=== PATIENT | female | born 1945 | race Caucasian/White ===

== ENCOUNTER 2022-10-07 09:49 | Inpatient (IN) | payer MEDICARE, SELFPAY ==
[2022-10-07] VITALS (9 sets, daily range): BP systolic 101–131; BP diastolic 46–80; PULSE 66–83; RESP 11–16; TEMP 36.6–36.9; O2SAT 97–100; BMI 46.2
--- NOTE | 2022-10-07 | ECG_ITS ---
Test Reason : SYNCOPE Blood Pressure : / mmHG Vent. Rate : 064 BPM Atrial Rate : 064 BPM P-R Int : 158 ms QRS Dur : 092 ms QT Int : 438 ms P-R-T Axes : 088 023 051 degrees QTc Int : 451 ms Normal sinus rhythm Normal ECG No previous ECGs available Referred By: Eleonora Grubbs Electronically Signed By:MIHIR MCDONALD MD
--- NOTE | ~2022-10-07 | CT_ITS ---
EXAMINATION: CT HEAD WITHOUT CONTRAST CLINICAL INFORMATION: CVA. COMPARISON: None. TECHNIQUE: Contiguous axial imaging was performed from the skull base to vertex without intravenous administration of contrast. This CT examination was performed using dose optimization techniques as appropriate, variously including the following: *Automated exposure control *Adjustment of mA and/or kV according to patient size (this includes techniques or standardized protocols for targeted exams where dose is matched to indication/reason for exam; i.e. extremities or head) *Use of iterative reconstruction technique DLP: 697 mGy-cm FINDINGS: Age indeterminate lacunar infarcts in the bilateral basal ganglia. There is no evidence of acute intracranial hemorrhage or edematous territorial infarction. A few foci of hypoattenuation in the periventricular and deep white matter are consistent with mild microangiopathy. Hernandez-white matter differentiation is preserved. Proportional prominence of the ventricles and sulcal spaces. No evidence for obstructive hydrocephalus. No abnormal mass effect or midline shift. No extra-axial fluid collections. No acute soft tissue or osseous abnormalities. The mastoid air cells and paranasal sinuses are clear. Bilateral lens extraction. CT/CT head/brain wo IV con IMPRESSION: 1. Age indeterminate lacunar infarcts in the bilateral basal ganglia. If indicated, correlation with an MR of the brain could be obtained for further characterization. 2. No evidence of acute intracranial hemorrhage or edematous territorial infarction.
--- NOTE | ~2022-10-07 | US_ITS ---
EXAMINATION: US VENOUS ULTRASOUND WITH DOPPLER LOWER EXTREMITY, BILATERAL CLINICAL INFORMATION: Bilateral leg pain. COMPARISON: None available. TECHNIQUE: Ultrasound of the deep veins is performed from the hip to the calf with compression sonography and color and pulse Doppler assessment. Spectral analysis with color-flow imaging is performed. FINDINGS: Limited exam as patient unable to mobilize either leg and has adhesive bandage on the right leg. RIGHT: There is normal venous compression and respiratory variation and augmented flow. The visualized common femoral vein, superficial femoral vein, profunda femoral vein, popliteal vein, shows no evidence of deep venous thrombosis. Right posterior tibial and peroneal distal veins are patent. The proximal calf cannot be evaluated due to bandage. There is no significant popliteal fossa cyst. LEFT: There is normal venous compression and respiratory variation and augmented flow. The visualized common femoral vein, superficial femoral vein, profunda femoral vein, popliteal vein, and the trifurcation region shows no evidence of deep venous thrombosis. The left calf veins are not visualized well. There is no significant popliteal fossa cyst. If the patient's symptoms persist, followup ultrasound in 5 days 7 days might be of value to exclude proximal propagation from a non-visualized calf vein. US/US venous duplex LE BI IMPRESSION: No DVT demonstrated in bilateral lower extremities of bowel the knee joint. Limited visualization of proximal right calf. The distal right peroneal and posterior tibial veins are patent.
--- NOTE | ~2022-10-07 | US_ITS ---
EXAMINATION: US VENOUS ULTRASOUND WITH DOPPLER LOWER EXTREMITY, RIGHT CLINICAL INFORMATION: Edema. COMPARISON: None available. TECHNIQUE: Ultrasound of the deep veins is performed from the hip to the calf with compression sonography and color and pulse Doppler assessment. Spectral analysis with color-flow imaging is performed. FINDINGS: There is normal venous compression and respiratory variation and augmented flow. The visualized common femoral vein, superficial femoral vein, profunda femoral vein, popliteal vein, and the trifurcation region shows no evidence of deep venous thrombosis. There is no significant popliteal fossa cyst. If the patient's symptoms persist, followup ultrasound in 5 days 7 days might be of value to exclude proximal propagation from a non-visualized calf vein. US/US venous duplex LE RT IMPRESSION: No DVT demonstrated in the right lower extremity.
--- NOTE | 2022-10-07 10:04 | ED_ITS ---
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 She states she woke up at 630am in her usual state of health. She ate breakfast and took her BP medications including Losartan and Coreg. She started feeling unwell and was going to go lay down when she started feeling lightheaded and weak. took her BP on their automatic cuff at home and it was 78/54. EMS was called and patient was found to be pale, diaphoretic with weak pulses. She had a witnessed brief syncopal episode while sitting. EMS brought her to the ER for further evaluation. Patient reports issues with this in the past. She has had intermittently low BP. Her usual BP is 130/70s. She states after she was discharged from [facility] in August she states she had a similar episode and needed to go back to [facility]. She denies any vomiting or diarrhea. She has had no chest pain or SOB. She reports some nausea but overall is feeling better than when she was at home. MD Complaint: generalized weakness Onset (ago): hour(s) (2) Duration: improved Location: generalized Migration: none Severity: similar to previous episodes Relieving factors: none Exacerbating factors: none Context: recent illness and history of similar Associated symptoms: loss of appetite and nausea/vomiting Related Data Home Medications Medication Instructions Recorded Confirmed acetaminophen 325 mg tablet 650 mg PO Q4H PRN Pain 10/07/22 10/07/22 (Tylenol) albuterol sulfate 90 mcg/actuation 2 puff inhalation Q6H PRN Wheezing 10/07/22 10/07/22 aerosol inhaler atorvastatin 40 mg tablet 40 mg PO BEDTIME 10/07/22 10/07/22 budesonide 3 mg 3 mg PO DAILY 10/07/22 10/07/22 capsule,delayed,extended release carvedilol 12.5 mg tablet 12.5 mg PO BID 10/07/22 10/07/22 cholecalciferol (vitamin D3) 25 25 mcg PO DAILY 10/07/22 10/07/22 mcg (1,000 unit) tablet citalopram 10 mg tablet 10 mg PO DAILY 10/07/22 10/07/22 dicyclomine 10 mg capsule 10 mg PO BID PRN Spasms 10/07/22 10/07/22 fluticasone propionate 50 1 spray intranasal DAILY 10/07/22 10/07/22 mcg/actuation nasal spray,suspension furosemide 20 mg tablet 20 mg PO DAILY 10/07/22 10/07/22 gabapentin 300 mg capsule 300 mg PO TID 10/07/22 10/07/22 levothyroxine 112 mcg tablet 112 mcg PO DAILY@0600 10/07/22 10/07/22 losartan 50 mg tablet 50 mg PO DAILY 10/07/22 10/07/22 multivitamin 1 tab PO DAILY 10/07/22 10/07/22 omeprazole 20 mg capsule,delayed 20 mg PO BID@0630,1630 10/07/22 10/07/22 release zaleplon 5 mg capsule 5 mg PO BEDTIME PRN insomnia 10/07/22 10/07/22 Allergies Allergy/AdvReac Type Severity Reaction Status Date / Time acetaminophen [Vicodin] Allergy Unknown vomiting; Verified 10/25/18 00:00 dizziness hydrocodone [Vicodin] Allergy Unknown vomiting; Verified 10/25/18 00:00 dizziness morphine Allergy Unknown Confusion Verified 10/25/18 00:00 oxycodone [Percocet] Allergy Unknown Vomiting, Verified 10/25/18 00:00 fainting penicillin V Allergy Unknown Rash Verified 10/25/18 00:00 tetracycline Allergy Unknown Stomach Verified 10/25/18 00:00 upset tramadol [Ultram] Allergy Unknown Violent N Verified 10/25/18 00:00 & V all codeine Allergy Unknown Uncoded 10/25/18 00:00 Codeine Sulfate Allergy Unknown Vomiting; Uncoded 10/25/18 00:00 fainting Review of Systems Review of Systems: Yes all other systems are reviewed and are negative PMFSH Social History Social History Alcohol intake: current Alcohol intake frequency: a few times a week Alcohol type: wine Smoked in Last 30 Days: No Use of substances other than those prescribed or required for medical reasons: No Advance Directives: Yes Advance Directives Information Provided: Yes Advance Directives on File: No Physical Exam Vital Signs: Vital Signs: Last Vital Signs Temp 98.2 F 10/07/22 14:53 Pulse 83 10/07/22 14:53 Resp 14 10/07/22 14:53 BP 115/54 L 10/07/22 14:53 Pulse Ox 98 10/07/22 14:53 O2 Del Method Nasal Cannula 10/07/22 14:53 O2 Flow Rate 2 10/07/22 14:53 Oxygen Flow Rate 2 10/07/22 10:00 BMI result Body Mass Index 46.2 Appearance: Alert. Oriented X3. No acute distress. Eyes: Pupils equal, round and reactive to light. ENT: Pharynx normal. Neck: Normal inspection. Neck supple. CVS: Normal heart rate and rhythm. Pulses normal. Respiratory: No respiratory distress. Breath sounds normal. Abdomen: Soft and nontender. +BS x4 Skin: Skin warm and dry. Normal skin color. Normal skin turgor. No rashes. Extremities: Right lower leg with a wound vac in place on the anterior crowe. Moderate erythema of the right lower leg. No calf tenderness. Neuro: Oriented X 3. No motor deficit. No sensory deficit. 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 EKG, Labs, UA, viral swabs ordered. Patient was re-evaluated. Hypomagnesium at 1.0, patient medicated with magnesium 2g. CBC significant for normocytic anemia with an H&H 8.8/27.9; TSH elevated at 9.34 but t4 WNL. UA normal, patient is not orthostatic. EKG with no ST elevation or depression. Patient's BP improved after 1L of fluids. We discussed the importance of admission for observation, patient reports that she is feeling well but given her age and syncopal episode with unknown etiology, will plan to admit for observation. Differential Diagnosis Differential Diagnoses: The differential diagnosis associated with the pre sentation includes orthostatic hypotension, electrolyte abnormality, dehydration, UTI, viral syndrome Admission/Observation Consideration of admission/observation: Escalation of care including admission/observation considered Lab Data MDM Lab Attestation statement: I reviewed the patient's lab results. normocytic anemia with a H&H 8.8/27.9; TSH elevated at 9.34 but t4 WNL. 10/07/22 10:18 10/07/22 10:18 Labs: Lab Results 10/07/22 10/07/22 10/07/22 Range/Units 10:18 10:18 10:18 WBC 10.2 (4.8-10.8) X10*3/uL RBC 2.93 L (4.20-5.50) X10*6/uL Hgb 8.8 L (12.0-16.0) g/dl Hct 27.9 L (37.0-47.0) % MCV 95.2 (80.0-98.0) fL MCH 30.0 (27.0-33.0) pg MCHC 31.5 (31.0-35.0) g/dl RDW 14.3 (11.0-16.0) % Plt Count 309 (160-400) X10*3/uL MPV 10.1 (9.4-12.3) fL Immature Gran % (Auto) 0.6 H (0.0-0.4) % Neut % (Auto) 77.4 H (45-73) % Lymph % (Auto) 8.9 L (20-40) % [place] % (Auto) 9.8 (2-11) % Eos % (Auto) 2.6 (0-4) % Baso % (Auto) 0.7 (0-2) % Lymph # (Auto) 0.9 L (1.2-4.9) X10*3/uL [place] # (Auto) 1.0 (0.1-1.2) X10*3/uL Eos # (Auto) 0.3 (0.0-0.4) X10*3/uL Baso # (Auto) 0.1 (0.0-0.2) X10*3/uL Abs Immat Gran (auto) 0.06 H (0.00-0.03) X10*3/uL Absolute Neuts (auto) 7.9 (2.0-8.3) x10*3/uL Absolute Nucleated RBC 0.000 (0.0-0.012) X10*3/uL Nucleated RBC % (auto) 0.0 (0.0-0.2) /100WBC Sodium 137 (135-145) mmol/L Potassium 3.7 (3.3-5.1) mmol/L Chloride 98 (96-108) mmol/L Carbon Dioxide 30 H (22-29) mmol/L Anion Gap 13 (12-20) BUN 12 (9-16) mg/dL Creatinine 0.95 (0.5-1.4) mg/dL Estim Creat Clear Calc 56.7 Estimated GFR 57 Random Glucose 124 H (60-115) mg/dL Calcium 8.8 (8.4-10.2) mg/dL Magnesium 1.0 L* (1.6-2.6) mg/dL Total Bilirubin 0.9 (0.0-1.0) mg/dL Direct Bilirubin 0.3 (0.0-0.5) mg/dL AST 12 (5-31) U/L ALT 11 (0-31) U/L Alkaline Phosphatase 45 (39-117) U/L Troponin I High Sens 8.2 (<3.5-17.0) ng/L B-Natriuretic Peptide (<100) pg/mL Total Protein 5.3 L (6.5-8.0) g/dL Albumin 3.1 L (3.5-5.0) g/dL TSH (0.32-4.0) uIU/mL Free T4 (0.71-1.85) ng/dL Urine Color Urine Appearance Urine pH (5.0-9.0) Ur Specific [place] (1.005-1.025) Urine Protein (Neg-Trace) mg/dL Urine Glucose (UA) (Negative) mg/dL Urine Ketones (Negative) mg/dL Urine Blood (Negative) Urine Nitrite (Negative) Ur Leukocyte Esterase (Negative) Stool Occult Blood (NEGATIVE) COVID-19 (MANISHA) (Negative) COVID-19 Clin Com 10/07/22 10/07/22 10/07/22 Range/Units 10:18 10:18 10:18 WBC (4.8-10.8) X10*3/uL RBC (4.20-5.50) X10*6/uL Hgb (12.0-16.0) g/dl Hct (37.0-47.0) % MCV (80.0-98.0) fL MCH (27.0-33.0) pg MCHC (31.0-35.0) g/dl RDW (11.0-16.0) % Plt Count (160-400) X10*3/uL MPV (9.4-12.3) fL Immature Gran % (Auto) (0.0-0.4) % Neut % (Auto) (45-73) % Lymph % (Auto) (20-40) % [place] % (Auto) (2-11) % Eos % (Auto) (0-4) % Baso % (Auto) (0-2) % Lymph # (Auto) (1.2-4.9) X10*3/uL [place] # (Auto) (0.1-1.2) X10*3/uL Eos # (Auto) (0.0-0.4) X10*3/uL Baso # (Auto) (0.0-0.2) X10*3/uL Abs Immat Gran (auto) (0.00-0.03) X10*3/uL Absolute Neuts (auto) (2.0-8.3) x10*3/uL Absolute Nucleated RBC (0.0-0.012) X10*3/uL Nucleated RBC % (auto) (0.0-0.2) /100WBC Sodium (135-145) mmol/L Potassium (3.3-5.1) mmol/L Chloride (96-108) mmol/L Carbon Dioxide (22-29) mmol/L Anion Gap (12-20) BUN (9-16) mg/dL Creatinine (0.5-1.4) mg/dL Estim Creat Clear Calc Estimated GFR Random Glucose (60-115) mg/dL Calcium (8.4-10.2) mg/dL Magnesium (1.6-2.6) mg/dL Total Bilirubin (0.0-1.0) mg/dL Direct Bilirubin (0.0-0.5) mg/dL AST (5-31) U/L ALT (0-31) U/L Alkaline Phosphatase (39-117) U/L Troponin I High Sens (<3.5-17.0) ng/L B-Natriuretic Peptide 388 H (<100) pg/mL Total Protein (6.5-8.0) g/dL Albumin (3.5-5.0) g/dL TSH 9.13 H (0.32-4.0) uIU/mL Free T4 1.21 (0.71-1.85) ng/dL Urine Color Urine Appearance Urine pH (5.0-9.0) Ur Specific [place] (1.005-1.025) Urine Protein (Neg-Trace) mg/dL Urine Glucose (UA) (Negative) mg/dL Urine Ketones (Negative) mg/dL Urine Blood (Negative) Urine Nitrite (Negative) Ur Leukocyte Esterase (Negative) Stool Occult Blood (NEGATIVE) COVID-19 (MANISHA) Negative (Negative) COVID-19 Clin Com See Note 10/07/22 10/07/22 Range/Units 13:41 13:43 WBC (4.8-10.8) X10*3/uL RBC (4.20-5.50) X10*6/uL Hgb (12.0-16.0) g/dl Hct (37.0-47.0) % MCV (80.0-98.0) fL MCH (27.0-33.0) pg MCHC (31.0-35.0) g/dl RDW (11.0-16.0) % Plt Count (160-400) X10*3/uL MPV (9.4-12.3) fL Immature Gran % (Auto) (0.0-0.4) % Neut % (Auto) (45-73) % Lymph % (Auto) (20-40) % [place] % (Auto) (2-11) % Eos % (Auto) (0-4) % Baso % (Auto) (0-2) % Lymph # (Auto) (1.2-4.9) X10*3/uL [place] # (Auto) (0.1-1.2) X10*3/uL Eos # (Auto) (0.0-0.4) X10*3/uL Baso # (Auto) (0.0-0.2) X10*3/uL Abs Immat Gran (auto) (0.00-0.03) X10*3/uL Absolute Neuts (auto) (2.0-8.3) x10*3/uL Absolute Nucleated RBC (0.0-0.012) X10*3/uL Nucleated RBC % (auto) (0.0-0.2) /100WBC Sodium (135-145) mmol/L Potassium (3.3-5.1) mmol/L Chloride (96-108) mmol/L Carbon Dioxide (22-29) mmol/L Anion Gap (12-20) BUN (9-16) mg/dL Creatinine (0.5-1.4) mg/dL Estim Creat Clear Calc Estimated GFR Random Glucose (60-115) mg/dL Calcium (8.4-10.2) mg/dL Magnesium (1.6-2.6) mg/dL Total Bilirubin (0.0-1.0) mg/dL Direct Bilirubin (0.0-0.5) mg/dL AST (5-31) U/L ALT (0-31) U/L Alkaline Phosphatase (39-117) U/L Troponin I High Sens (<3.5-17.0) ng/L B-Natriuretic Peptide (<100) pg/mL Total Protein (6.5-8.0) g/dL Albumin (3.5-5.0) g/dL TSH (0.32-4.0) uIU/mL Free T4 (0.71-1.85) ng/dL Urine Color Yellow Urine Appearance Clear Urine pH 7.0 (5.0-9.0) Ur Specific [place] <= 1.005 (1.005-1.025) Urine Protein Negative (Neg-Trace) mg/dL Urine Glucose (UA) Negative (Negative) mg/dL Urine Ketones Negative (Negative) mg/dL Urine Blood Negative (Negative) Urine Nitrite Negative (Negative) Ur Leukocyte Esterase Negative (Negative) Stool Occult Blood NEGATIVE (NEGATIVE) COVID-19 (MANISHA) (Negative) COVID-19 Clin Com Independent Interpretation I performed an independent interpretation of an: EKG Interpretation: EKG with normal sinus rhythm, ventricular rate 64 beats per minute, normal VT interval, normal QTC, no ST segment elevations or depressions. Artifact present in V5 Independent Historian Clinical information obtained from an independent historian. History obtained from or confirmed by: Spouse and EMS External Record Review External record reviewed: Inpatient record and Outside ED record Chronic Conditions Patient?s care impacted by: Hypertension Critical Care Time Critical Care Time Critical Care Time: Yes Total Critical Care Time: 39 Attestation: I have personally provided critical care time exclusive of time spent on separately billable procedures. Time includes review of lab data, radiology resu lts, discussion with consultants, and monitoring for potential decompensation. Intervention performed as documented. Discharge Plan Discharge Clinical Impression: Syncope, Anemia Patient Disposition: Admitted As Inpatient
[2022-10-07 10:29] LABS: MANUAL DIFF FLAG NO
[2022-10-07 10:30] LABS: Basophils Absolute Auto 0.1 X10*3/uL (0.0-0.2); Basophils Percent Auto 0.7 % (0-2); Eosinophils Absolute Auto 0.3 X10*3/uL (0.0-0.4); Eosinophils Percent Auto 2.6 % (0-4); Hematocrit 27.9 % (37.0-47.0); Hemoglobin 8.8 g/dl (12.0-16.0); Imm Gran Abs Auto 0.06 X10*3/uL (0.00-0.03); Imm Gran Pct Auto 0.6 % (0.0-0.4); Lymphocytes Absolute Auto 0.9 X10*3/uL (1.2-4.9); Lymphocytes Percent Auto 8.9 % (20-40); Mean Corpuscular HGB Conc 31.5 g/dl (31.0-35.0); Mean Corpuscular Volume 95.2 fL (80.0-98.0); Mean Platelet Volume 10.1 fL (9.4-12.3); Monocytes Percent Auto 9.8 % (2-11); Neutrophils Absolute Auto 7.9 x10*3/uL (2.0-8.3); Neutrophils Percent Auto 77.4 % (45-73); Platelet Count 309 X10*3/uL (160-400); Red Blood Count 2.93 X10*6/uL (4.20-5.50); Red Cell Distribution Width 14.3 % (11.0-16.0); White Blood Count 10.2 X10*3/uL (4.8-10.8)
[2022-10-07 10:41] LABS: COVID-19 Test Negative (Negative); IDNOW Serial# BCCEAD1C
[2022-10-07 10:57] LABS: B Type Natriuretic Peptide 388 pg/mL (<100)
[2022-10-07 11:01] LABS: Troponin-I High Sensitivity 8.2 ng/L (<3.5-17.0)
[2022-10-07 11:15] LABS: TSH reflex Free T4 9.13 uIU/mL (0.32-4.0)
[2022-10-07 11:29] LABS: Alanine Aminotransferase 11 U/L (0-31); Albumin Level 3.1 g/dL (3.5-5.0); Alkaline Phosphatase 45 U/L (39-117); Anion Gap 13 (12-20); Aspartate Amino Transferase 12 U/L (5-31); Bilirubin Direct 0.3 mg/dL (0.0-0.5); Bilirubin Total 0.9 mg/dL (0.0-1.0); Blood Urea Nitrogen 12 mg/dL (9-16); Calcium 8.8 mg/dL (8.4-10.2); Carbon Dioxide 30 mmol/L (22-29); Chloride 98 mmol/L (96-108); Creatinine Clr Calc Pharmacy 56.7; Estimated Glomerular Filt Rate 57; Glucose Random 124 mg/dL (60-115); Potassium 3.7 mmol/L (3.3-5.1); Sodium 137 mmol/L (135-145); Total Protein 5.3 g/dL (6.5-8.0)
[2022-10-07] MEDS: Magnesium Sulfate/H2O 2 GM/50 ML PIGGYBACK IV (12:05)
[2022-10-07 12:25] LABS: Free T4 (Free Thyroxine) 1.21 ng/dL (0.71-1.85)
[2022-10-07 13:57] LABS: Appearance Urine Clear; Color Urine Yellow; Glucose Urine UA Negative (Negative); Leukocyte Esterase Urine Negative (Negative); Nitrite Urine Negative (Negative); Specific Gravity - Urine <= 1.005 (1.005-1.025); Urine Blood Negative (Negative); Urine Ketones Negative (Negative); Urine Protein Negative (Neg-Trace)
[2022-10-07 13:58] LABS: OBS1 NEGATIVE (NEGATIVE)
[2022-10-07 13:59] LABS: OBS Int Ctl Valid YES
--- NOTE | 2022-10-07 14:47 | PC.NURSE ---
pt with bedside commode. wound vac to R lower leg from injury to R leg during a fall 2 weeks ago. pt rpeorts walking with a walker.
--- NOTE | 2022-10-07 15:13 | PHA.MEDREC ---
Pharmacy Consult ? Medication Reconciliation Pharmacy has completed the medication reconciliation. Pt and with list at bedside
--- NOTE | 2022-10-07 15:14 | PM.IMHP ---
History of Present Illness Date of Service: 10/07/22 Chief Complaint: Dizziness, syncope A 77 years old lady with PMH of ILD on 2L, HTN, RLE wound Vac since Aug 2022 among others who presents to the hospital after an episode of dizziness and syncope. The patient report that htis is the thrird time she is getting such a dizziness episode. she took her morning meds and was sitting feeling unwell but when she tried to get up she felt dizzy and unsteady on her feet. when EMS got home she had another episode and lost her conscious for 10 sec per EMS. found hypotensive, pale, diaphoric. denies any chest pain, palpitations, headache, nausea, vomiting, diarrhea, change in bowel habit or urinary symptoms. She has RLE wound vac since Aug for fall related injury. Admitted for observation overnight Review of Systems Review of Systems: No fever, chills or weakness No chest pain, palpitation No shortness of breath or coughing No abdominal pain, nausea or vomiting No urinary symptoms No any rash or wounds PMFSH Medical History HTN (hypertension) ILD (interstitial lung disease) Social History Alcohol intake: current Alcohol intake frequency: a few times a week Alcohol type: wine Smoked in Last 30 Days: No Use of substances other than those prescribed or required for medical reasons: No Advance Directives: Yes Advance Directives Information Provided: Yes Advance Directives on File: No Meds Allergies Allergy/AdvReac Type Severity Reaction Status Date / Time acetaminophen [Vicodin] Allergy Unknown vomiting; Verified 10/25/18 00:00 dizziness hydrocodone [Vicodin] Allergy Unknown vomiting; Verified 10/25/18 00:00 dizziness morphine Allergy Unknown Confusion Verified 10/25/18 00:00 oxycodone [Percocet] Allergy Unknown Vomiting, Verified 10/25/18 00:00 fainting penicillin V Allergy Unknown Rash Verified 10/25/18 00:00 tetracycline Allergy Unknown Stomach Verified 10/25/18 00:00 upset tramadol [Ultram] Allergy Unknown Violent N Verified 10/25/18 00:00 & V all codeine Allergy Unknown Uncoded 10/25/18 00:00 Codeine Sulfate Allergy Unknown Vomiting; Uncoded 10/25/18 00:00 fainting Active Medications: Current Medications Enoxaparin Sodium (Enoxaparin Sodium 40 Mg/0.4 Ml Syringe) 40 mg SUBCUT Q24H KRISTAL Ondansetron HCl (Ondansetron Hcl 4 Mg/2 Ml Vial) 4 mg IVPUSH Q8H PRN PRN Reason: Nausea and Vomiting Pharmacy Consult (Consult Rx Perform Med Rec) 1 each MISCELLANE ONCE PRN PRN Reason: Consult order Sodium Chloride (0.9 % Sodium Chloride Flush 3 Ml Syringe) 3 ml IVFLUSH QSHIFT [facility] Home Medications Medication Instructions Recorded Confirmed Last Taken Type acetaminophen 325 mg tablet 650 mg PO Q4H PRN Pain 10/07/22 10/07/22 Unknown History (Tylenol) albuterol sulfate 90 mcg/actuation 2 puff inhalation Q6H PRN Wheezing 10/07/22 10/07/22 Unknown History aerosol inhaler atorvastatin 40 mg tablet 40 mg PO BEDTIME 10/07/22 10/07/22 10/06/22 History budesonide 3 mg 3 mg PO DAILY 10/07/22 10/07/22 10/07/22 History capsule,delayed,extended release carvedilol 12.5 mg tablet 12.5 mg PO BID 10/07/22 10/07/22 10/07/22 History cholecalciferol (vitamin D3) 25 25 mcg PO DAILY 10/07/22 10/07/22 10/07/22 History mcg (1,000 unit) tablet citalopram 10 mg tablet 10 mg PO DAILY 10/07/22 10/07/22 10/07/22 History dicyclomine 10 mg capsule 10 mg PO BID PRN Spasms 10/07/22 10/07/22 Unknown History fluticasone propionate 50 1 spray intranasal DAILY 10/07/22 10/07/22 10/07/22 History mcg/actuation nasal spray,suspension furosemide 20 mg tablet 20 mg PO DAILY 10/07/22 10/07/22 10/07/22 History gabapentin 300 mg capsule 300 mg PO TID 10/07/22 10/07/22 10/07/22 History levothyroxine 112 mcg tablet 112 mcg PO DAILY@0600 10/07/22 10/07/22 10/07/22 History losartan 50 mg tablet 50 mg PO DAILY 10/07/22 10/07/22 10/07/22 History multivitamin 1 tab PO DAILY 10/07/22 10/07/22 10/07/22 History omeprazole 20 mg capsule,delayed 20 mg PO BID@0630,1630 10/07/22 10/07/22 10/07/22 History release zaleplon 5 mg capsule 5 mg PO BEDTIME PRN insomnia 10/07/22 10/07/22 Unknown History Physical Exam Vital Signs and Narrative: Vital Signs: Last Vital Signs Temp 98.2 F 10/07/22 14:53 Pulse 83 10/07/22 14:53 Resp 14 10/07/22 14:53 BP 115/54 L 10/07/22 14:53 Pulse Ox 98 10/07/22 14:53 O2 Del Method Nasal Cannula 10/07/22 14:53 O2 Flow Rate 2 10/07/22 14:53 Oxygen Flow Rate 2 10/07/22 10:00 BMI result Body Mass Index 46.2 Const: Other: Constitutional : Awake, interactive, morbidly obese, not in distress Neck : Normal inspection, Supple Cardiovascular : RRR, no JVP, no lower extremity edema Respiratory : good bilateral air entry, no crackles, wheezes or rhonchi Gastrointestinal: soft, lax, Normal bowel sounds, Non tender Skin : Warm, Dry, RLE wound cover with wound Vac, mild surrounding erythema but no tenderness Neurological : Alert & oriented x3, No focal deficit Results Labs 10/07/22 10:18 10/07/22 10:18 Labs: Laboratory Results - last 24 hr 10/07/22 10/07/22 10/07/22 10:18 10:18 10:18 MCV 95.2 MCH 30.0 MCHC 31.5 RDW 14.3 Plt Count 309 MPV 10.1 Immature Gran % (Auto) 0.6 H Neut % (Auto) 77.4 H Lymph % (Auto) 8.9 L [place] % (Auto) 9.8 Eos % (Auto) 2.6 Baso % (Auto) 0.7 Lymph # (Auto) 0.9 L [place] # (Auto) 1.0 Eos # (Auto) 0.3 Baso # (Auto) 0.1 Abs Immat Gran (auto) 0.06 H Absolute Neuts (auto) 7.9 Absolute Nucleated RBC 0.000 Nucleated RBC % (auto) 0.0 Anion Gap 13 Estim Creat Clear Calc 56.7 Estimated GFR 57 Random Glucose 124 H Calcium 8.8 Magnesium 1.0 L* Total Bilirubin 0.9 Direct Bilirubin 0.3 AST 12 ALT 11 Alkaline Phosphatase 45 Troponin I High Sens 8.2 B-Natriuretic Peptide Total Protein 5.3 L Albumin 3.1 L TSH Free T4 Urine Color Urine Appearance Urine pH Ur Specific [place] Urine Protein Urine Glucose (UA) Urine Ketones Urine Blood Urine Nitrite Ur Leukocyte Esterase Stool Occult Blood COVID-19 (MANISHA) COVID-19 Clin Com 10/07/22 10/07/22 10/07/22 10:18 10:18 10:18 MCV MCH MCHC RDW Plt Count MPV Immature Gran % (Auto) Neut % (Auto) Lymph % (Auto) [place] % (Auto) Eos % (Auto) Baso % (Auto) Lymph # (Auto) [place] # (Auto) Eos # (Auto) Baso # (Auto) Abs Immat Gran (auto) Absolute Neuts (auto) Absolute Nucleated RBC Nucleated RBC % (auto) Anion Gap Estim Creat Clear Calc Estimated GFR Random Glucose Calcium Magnesium Total Bilirubin Direct Bilirubin AST ALT Alkaline Phosphatase Troponin I High Sens B-Natriuretic Peptide 388 H Total Protein Albumin TSH 9.13 H Free T4 1.21 Urine Color Urine Appearance Urine pH Ur Specific [place] Urine Protein Urine Glucose (UA) Urine Ketones Urine Blood Urine Nitrite Ur Leukocyte Esterase Stool Occult Blood COVID-19 (MANISHA) Negative COVID-19 Clin Com See Note 10/07/22 10/07/22 13:41 13:43 MCV MCH MCHC RDW Plt Count MPV Immature Gran % (Auto) Neut % (Auto) Lymph % (Auto) [place] % (Auto) Eos % (Auto) Baso % (Auto) Lymph # (Auto) [place] # (Auto) Eos # (Auto) Baso # (Auto) Abs Immat Gran (auto) Absolute Neuts (auto) Absolute Nucleated RBC Nucleated RBC % (auto) Anion Gap Estim Creat Clear Calc Estimated GFR Random Glucose Calcium Magnesium Total Bilirubin Direct Bilirubin AST ALT Alkaline Phosphatase Troponin I High Sens B-Natriuretic Peptide Total Protein Albumin TSH Free T4 Urine Color Yellow Urine Appearance Clear Urine pH 7.0 Ur Specific [place] <= 1.005 Urine Protein Negative Urine Glucose (UA) Negative Urine Ketones Negative Urine Blood Negative Urine Nitrite Negative Ur Leukocyte Esterase Negative Stool Occult Blood NEGATIVE COVID-19 (MANISHA) COVID-19 Clin Com Assessment and Plan (1) Syncope: Status: Acute (2) Anemia: Status: Acute (3) Hypomagnesemia: Status: Acute Plan A 77 years old lady with PMH of ILD on 2L, HTN, RLE wound Vac since Aug 2022 among others who presents to the hospital after an episode of dizziness and syncope. Syncope history and physical suggestive of likely orthostatic hypotension, vasovagal? keep on Tele to eval for any arrythmia Hold Lasix and Losartan check orthostatic vitals do PT Chronic anemia likely related to chronic illness with open wound check Iron studies Hypomagnesemia IV replacement recheck Morbid obesity advised to lose weight Hypothyroid Levothyroixn ILD on 2L Continue inhalors, Budesonide and O2 supplement DVT PPx Lovenox Time Spent With Patient Time: Total time managing care of this patient today ____ minutes. Quality Stroke Does the patient have a stroke diagnosis?: No VTE Prior VTE?: No VTE Risk Level:: Medical - moderate - high VTE Device Contraindication: Treatment Not Indicated VTE Drug Contraindication: N/A - Med Ordered
--- NOTE | 2022-10-07 15:16 | PC.NURSE ---
pt moved into a hospital bed
[2022-10-07 15:37] LABS: Iron 27 mcg/dL (30-160); Percent Iron Saturation 14 % (15-50); Total Iron Binding Capacity 196 mcg/dL (228-428); Unsaturated Iron Binding 169 ug/dL
[2022-10-07] MEDS: ondansetron HCL 4 MG/2 ML VIAL IVPUSH (17:12)
[2022-10-07] MEDS: Omeprazole 20 MG CAPSULE.DR PO (17:12)
[2022-10-07] MEDS: HYDROmorphone HCl 2 MG TABLET PO (17:12)
[2022-10-07] MEDS: 0.9 % Sodium Chloride Flush 3 ML SYRINGE IVFLUSH ×2 (17:13→20:30)
[2022-10-07] MEDS: Enoxaparin Sodium 40 MG/0.4 ML SYRINGE SUBCUT (17:13)
--- NOTE | 2022-10-07 19:08 | PC.NURSE ---
Patient came up to the unit at 1830, has wound vac to the right lower leg, per patient wound vac is maintained by [facility] on Tuesday, Tuesday and Tuesday, last changed yesterday.
[2022-10-07] MEDS: carvediloL 12.5 MG TABLET PO (20:29)
[2022-10-07] MEDS: Gabapentin 300 MG CAPSULE PO (20:29)
[2022-10-07] MEDS: Atorvastatin Calcium 40 MG TABLET PO (20:30)
[2022-10-07] MEDS: Docusate Sodium 100 MG CAPSULE PO (20:30)
[2022-10-07] MEDS: Prochlorperazine Edisylate 10 MG/2 ML VIAL 5 MG IVPUSH (21:23)
[2022-10-08] VITALS (8 sets, daily range): BP systolic 110–140; BP diastolic 56–71; PULSE 72–89; RESP 15–17; TEMP 36.1–36.7; O2SAT 94–97
[2022-10-08] MEDS: HYDROmorphone HCl 2 MG TABLET PO ×3 (03:29→20:28)
[2022-10-08] MEDS: Levothyroxine Sodium 112 MCG TABLET PO (06:06)
[2022-10-08] MEDS: Omeprazole 20 MG CAPSULE.DR PO ×2 (06:06→16:10)
[2022-10-08 07:22] LABS: Anion Gap 14 (12-20); Blood Urea Nitrogen 9 mg/dL (9-16); Carbon Dioxide 29 mmol/L (22-29); Chloride 101 mmol/L (96-108); Creatinine Clr Calc Pharmacy 70.9; Estimated Glomerular Filt Rate > 60; Glucose Random 103 mg/dL (60-115); Potassium 3.4 mmol/L (3.3-5.1); Sodium 141 mmol/L (135-145)
[2022-10-08 07:39] LABS: Magnesium 1.4 mg/dL (1.6-2.6)
[2022-10-08] MEDS: Magnesium Sulfate/H2O 2 GM/50 ML PIGGYBACK IV (07:58)
[2022-10-08] MEDS: Escitalopram Oxalate 5 MG TABLET PO (08:01)
[2022-10-08] MEDS: Cholecalciferol (Vitamin D3) 25 MCG TABLET PO (08:01)
[2022-10-08] MEDS: carvediloL 12.5 MG TABLET PO ×2 (08:02→20:27)
[2022-10-08] MEDS: Gabapentin 300 MG CAPSULE PO ×3 (08:02→20:27)
[2022-10-08] MEDS: Multivitamin TABLET 1 TAB PO (08:02)
[2022-10-08] MEDS: 0.9 % Sodium Chloride Flush 3 ML SYRINGE IVFLUSH ×3 (08:09→20:29)
--- NOTE | 2022-10-08 12:18 | P.PNIM_ITS ---
Subjective Subjective Date of Service: 10/08/22 Interval History: Feels weak and low energy no more syncope, no reported dizziness PT recommends STR No other overnight events Review of Systems No fever, chills or weakness No chest pain, palpitation No shortness of breath or coughing No abdominal pain, nausea or vomiting No urinary symptoms No any rash or wounds Physical Exam Vital Signs: Vital Signs: Last Vital Signs Temp 97.9 F 10/08/22 11:49 Pulse 78 10/08/22 11:51 Resp 17 10/08/22 11:49 BP 115/61 10/08/22 11:51 Pulse Ox 95 10/08/22 11:49 O2 Del Method Nasal Cannula 10/08/22 11:49 O2 Flow Rate 2 10/08/22 11:49 Oxygen Flow Rate 2 10/07/22 10:00 BMI result Body Mass Index 46.2 Const: Other: Constitutional : Awake, interactive, morbidly obese, not in distress Neck : Normal inspection, Supple Cardiovascular : RRR, no JVP, no lower extremity edema Respiratory : good bilateral air entry, no crackles, wheezes or rhonchi Gastrointestinal: soft, lax, Normal bowel sounds, Non tender Skin : Warm, Dry, RLE wound cover with wound Vac, mild surrounding erythema but no tenderness Neurological : Alert & oriented x3, No focal deficit Objective Data Active Medications Albuterol Sulfate (Albuterol Sulfate 90 Mcg 8 Gm Inhaler) 2 puff INHALE Q6H PRN PRN Reason: Wheezing Atorvastatin Calcium (Atorvastatin Calcium 40 Mg Tablet) 40 mg PO BEDTIME [facility] Last Admin: 10/07/22 20:30 Dose: 40 mg Documented By: EMMANUEL Carvedilol (Carvedilol 12.5 Mg Tablet) 12.5 mg PO BID [facility]; Protocol Last Admin: 10/08/22 08:02 Dose: 12.5 mg Documented By: PHAMAURICE Dicyclomine HCl (Dicyclomine Hcl 10 Mg Capsule) 10 mg PO BID PRN PRN Reason: Spasms Docusate Sodium (Docusate Sodium 100 Mg Capsule) 100 mg PO BID PRN PRN Reason: Constipation Last Admin: 10/07/22 20:30 Dose: 100 mg Documented By: EMMANUEL Enoxaparin Sodium (Enoxaparin Sodium 40 Mg/0.4 Ml Syringe) 40 mg SUBCUT Q24H [facility] Last Admin: 10/07/22 17:13 Dose: 40 mg Documented By: NAVID Escitalopram Oxalate (Escitalopram Oxalate 5 Mg Tablet) 5 mg PO DAILY [facility] Last Admin: 10/08/22 08:01 Dose: 5 mg Documented By: DEBBIE Fluticasone Propionate (Fluticasone Propionate Nasal 16 Gm [place]) 1 spray NOSTRIL-B DAILY [facility] Last Admin: 10/08/22 10:20 Dose: Not Given Documented By: DEBBIE Non-Admin Reason: called pharmacist for med Gabapentin (Gabapentin 300 Mg Capsule) 300 mg PO TID [facility] Last Admin: 10/08/22 08:02 Dose: 300 mg Documented By: DEBBIE Hydromorphone HCl (Hydromorphone Hcl 2 Mg Tablet) 2 mg PO Q8H PRN PRN Reason: Pain, Severe (Pain Scale 7-10) Last Admin: 10/08/22 11:24 Dose: 2 mg Documented By: DEBBIE Levothyroxine Sodium (Levothyroxine Sodium 112 Mcg Tablet) 112 mcg PO DAILY@0600 [facility] Last Admin: 10/08/22 06:06 Dose: 112 mcg Documented By: EMMANUEL Multivitamins/Vitamin C (Multivitamin Tablet) 1 tab PO DAILY [facility] Last Admin: 10/08/22 08:02 Dose: 1 tab Documented By: DEBBIE Non-Formulary Medication (Budesonide) 3 mg PO DAILY [facility] Omeprazole (Omeprazole 20 Mg Capsule.Dr) 20 mg PO BID@0630,1630 [facility] Last Admin: 10/08/22 06:06 Dose: 20 mg Documented By: EMMANUEL Ondansetron HCl (Ondansetron Hcl 4 Mg/2 Ml Vial) 4 mg IVPUSH Q8H PRN PRN Reason: Nausea and Vomiting Last Admin: 10/07/22 17:12 Dose: 4 mg Documented By: NAVID Pharmacy Consult (Consult Rx Perform Med Rec) 1 each MISCELLANE ONCE PRN PRN Reason: Consult order Sodium Chloride (0.9 % Sodium Chloride Flush 3 Ml Syringe) 3 ml IVFLUSH QSHIFT [facility] Last Admin: 10/08/22 08:09 Dose: 3 ml Documented By: DEBBIE Vitamin D (Cholecalciferol (Vitamin D3) 25 Mcg Tablet) 25 mcg PO DAILY [facility] Last Admin: 10/08/22 08:01 Dose: 25 mcg Documented By: DEBBIE Labs 10/07/22 10:18 10/08/22 06:20 Labs: Laboratory Results - last 24 hr 10/07/22 10/07/22 10/07/22 10:18 13:41 13:43 Anion Gap Estim Creat Clear Calc Estimated GFR Random Glucose Calcium Magnesium Iron 27 L TIBC 196 L % Saturation 14 L Unsat Iron Binding 169 Free T4 1.21 Urine Color Yellow Urine Appearance Clear Urine pH 7.0 Ur Specific [place] <= 1.005 Urine Protein Negative Urine Glucose (UA) Negative Urine Ketones Negative Urine Blood Negative Urine Nitrite Negative Ur Leukocyte Esterase Negative Stool Occult Blood NEGATIVE 10/08/22 06:20 Anion Gap 14 Estim Creat Clear Calc 70.9 Estimated GFR > 60 Random Glucose 103 Calcium 9.0 Magnesium 1.4 L* Iron TIBC % Saturation Unsat Iron Binding Free T4 Urine Color Urine Appearance Urine pH Ur Specific [place] Urine Protein Urine Glucose (UA) Urine Ketones Urine Blood Urine Nitrite Ur Leukocyte Esterase Stool Occult Blood Assessment and Plan (1) Hypomagnesemia: Status: Acute (2) Syncope: Status: Acute (3) Anemia: Status: Acute Plan A 77 years old lady with PMH of ILD on 2L, HTN, RLE wound Vac since Aug 2022 among others who presents to the hospital after an episode of dizziness and syncope. Syncope likely orthostatic hypotension, resolved keep on Tele Hold Losartan stable orthostatic vitals PT recommends STR Chronic anemia likely related to chronic illness with open wound Iron studies showing low Iron, TIBC and sat IV Iron supplement, PO on discharge Hypomagnesemia 1.4 today IV replacement recheck Morbid obesity advised to lose weight Hypothyroid Levothyroixn ILD on 2L Continue inhalors, Budesonide and O2 supplement DVT PPx Lovenox Needs to stay for hypomagnesemia, IV Iron, STR placement. Time Spent With Patient Time: Total time managing care of this patient today ____ minutes. Quality Stroke Does the patient have a stroke diagnosis?: No VTE Prior VTE?: No VTE Risk Level:: Medical - moderate - high VTE Device Contraindication: Treatment Not Indicated VTE Drug Contraindication: N/A - Med Ordered
[2022-10-08] MEDS: Furosemide 20 MG TABLET PO (13:01)
--- NOTE | 2022-10-08 13:16 | HO.WOUNDCONS ---
History of Present Illness Data of Consult Service Date: 10/08/22 Requesting physician: Bassam Lima Primary Care Provider: Etlevina Veloz NP [facility] Reason for consult: wound vac management [id number]: 77-year-old female presents to emergency department after syncopal episode. Labs consistent with anemia possibly blood loss associated. Her tells me that the wound VAC canister was completely filled on her last VAC change Tuesday. She denies dizziness today. Stool is guaiac negative. Review of Systems Review of Systems: Denies chest pain and shortness of breath. No dizziness presently. Appetite is okay. Has significant tenderness of the right lower leg without new swelling or redness. Yes all other systems are reviewed and are negative [facility] Medical History HTN (hypertension) ILD (interstitial lung disease) Social History Household Members: Spouse Housing: House Do you presently have visiting nurse or other home services: Yes (VNA, PT, OT, [employer]) Alcohol intake: current Alcohol intake frequency: a few times a week Alcohol type: wine Patient Tobacco Use Status: Former Tobacco user Smoked in Last 30 Days: No Use of substances other than those prescribed or required for medical reasons: No Currently Displaying Signs/Symptoms of Drug Intoxication Withdrawal: No Have you been hit, kicked, punched, or otherwise hurt by someone within the past year? If so, by whom?: No Do you feel safe in your current relationship?: No Is there a partner from a previous relationship who is making you feel unsafe now?: No Are you made to feel afraid or neglected: No Advance Directives: Yes Advance Directives Information Provided: Yes Advance Directives on File: No Advance Directives Date on File: 10/07/22 Do you have thoughts of harming others: None Do you have a plan to hurt others: No Plan Recently lost weight without trying: No Eating poorly because of decreased appetite: No Nutrition Risks: No Nutritional Risk Patient : No : No Meds Allergies Allergy/AdvReac Type Severity Reaction Status Date / Time acetaminophen [Vicodin] Allergy Unknown vomiting; Verified 10/25/18 00:00 dizziness hydrocodone [Vicodin] Allergy Unknown vomiting; Verified 10/25/18 00:00 dizziness morphine Allergy Unknown Confusion Verified 10/25/18 00:00 oxycodone [Percocet] Allergy Unknown Vomiting, Verified 10/25/18 00:00 fainting penicillin V Allergy Unknown Rash Verified 10/25/18 00:00 tetracycline Allergy Unknown Stomach Verified 10/25/18 00:00 upset tramadol [Ultram] Allergy Unknown Violent N Verified 10/25/18 00:00 & V all codeine Allergy Unknown Uncoded 10/25/18 00:00 Codeine Sulfate Allergy Unknown Vomiting; Uncoded 10/25/18 00:00 fainting Active Medications: Current Medications Albuterol Sulfate (Albuterol Sulfate 90 Mcg 8 Gm Inhaler) 2 puff INHALE Q6H PRN PRN Reason: Wheezing Atorvastatin Calcium (Atorvastatin Calcium 40 Mg Tablet) 40 mg PO BEDTIME [facility] Last Admin: 10/07/22 20:30 Dose: 40 mg Carvedilol (Carvedilol 12.5 Mg Tablet) 12.5 mg PO BID [facility]; Protocol Last Admin: 10/08/22 08:02 Dose: 12.5 mg Dicyclomine HCl (Dicyclomine Hcl 10 Mg Capsule) 10 mg PO BID PRN PRN Reason: Spasms Docusate Sodium (Docusate Sodium 100 Mg Capsule) 100 mg PO BID PRN PRN Reason: Constipation Last Admin: 10/07/22 20:30 Dose: 100 mg Enoxaparin Sodium (Enoxaparin Sodium 40 Mg/0.4 Ml Syringe) 40 mg SUBCUT Q24H [facility] Last Admin: 10/07/22 17:13 Dose: 40 mg Escitalopram Oxalate (Escitalopram Oxalate 5 Mg Tablet) 5 mg PO DAILY [facility] Last Admin: 10/08/22 08:01 Dose: 5 mg Fluticasone Propionate (Fluticasone Propionate Nasal 16 Gm [place]) 1 spray NOSTRIL-B DAILY [facility] Last Admin: 10/08/22 10:20 Dose: Not Given Furosemide (Furosemide 20 Mg Tablet) 20 mg PO DAILY [facility]; Protocol Last Admin: 10/08/22 13:01 Dose: 20 mg Gabapentin (Gabapentin 300 Mg Capsule) 300 mg PO TID [facility] Last Admin: 10/08/22 08:02 Dose: 300 mg Hydromorphone HCl (Hydromorphone Hcl 2 Mg Tablet) 2 mg PO Q8H PRN PRN Reason: Pain, Severe (Pain Scale 7-10) Last Admin: 10/08/22 11:24 Dose: 2 mg Iron Sucrose 200 mg/ Sodium (Chloride) 110 mls @ 440 mls/hr IV DAILY [facility] Stop: 10/10/22 09:14 Levothyroxine Sodium (Levothyroxine Sodium 112 Mcg Tablet) 112 mcg PO DAILY@0600 [facility] Last Admin: 10/08/22 06:06 Dose: 112 mcg Multivitamins/Vitamin C (Multivitamin Tablet) 1 tab PO DAILY [facility] Last Admin: 10/08/22 08:02 Dose: 1 tab Non-Formulary Medication (Budesonide) 3 mg PO DAILY [facility] Omeprazole (Omeprazole 20 Mg Capsule.Dr) 20 mg PO BID@0630,1630 [facility] Last Admin: 10/08/22 06:06 Dose: 20 mg Ondansetron HCl (Ondansetron Hcl 4 Mg/2 Ml Vial) 4 mg IVPUSH Q8H PRN PRN Reason: Nausea and Vomiting Last Admin: 10/07/22 17:12 Dose: 4 mg Pharmacy Consult (Consult Rx Perform Med Rec) 1 each MISCELLANE ONCE PRN PRN Reason: Consult order Sodium Chloride (0.9 % Sodium Chloride Flush 3 Ml Syringe) 3 ml IVFLUSH QSHIFT [facility] Last Admin: 10/08/22 08:09 Dose: 3 ml Vitamin D (Cholecalciferol (Vitamin D3) 25 Mcg Tablet) 25 mcg PO DAILY [facility] Last Admin: 10/08/22 08:01 Dose: 25 mcg Home Medications Medication Instructions Recorded Confirmed Last Taken Type acetaminophen 325 mg tablet 650 mg PO Q4H PRN Pain 10/07/22 10/07/22 Unknown History (Tylenol) albuterol sulfate 90 mcg/actuation 2 puff inhalation Q6H PRN Wheezing 10/07/22 10/07/22 Unknown History aerosol inhaler atorvastatin 40 mg tablet 40 mg PO BEDTIME 10/07/22 10/07/22 10/06/22 History budesonide 3 mg 3 mg PO DAILY 10/07/22 10/07/22 10/07/22 History capsule,delayed,extended release carvedilol 12.5 mg tablet 12.5 mg PO BID 10/07/22 10/07/22 10/07/22 History cholecalciferol (vitamin D3) 25 25 mcg PO DAILY 10/07/22 10/07/22 10/07/22 History mcg (1,000 unit) tablet citalopram 10 mg tablet 10 mg PO DAILY 10/07/22 10/07/22 10/07/22 History dicyclomine 10 mg capsule 10 mg PO BID PRN Spasms 10/07/22 10/07/22 Unknown History fluticasone propionate 50 1 spray intranasal DAILY 10/07/22 10/07/22 10/07/22 History mcg/actuation nasal spray,suspension furosemide 20 mg tablet 20 mg PO DAILY 10/07/22 10/07/22 10/07/22 History gabapentin 300 mg capsule 300 mg PO TID 10/07/22 10/07/22 10/07/22 History levothyroxine 112 mcg tablet 112 mcg PO DAILY@0600 10/07/22 10/07/22 10/07/22 History losartan 50 mg tablet 50 mg PO DAILY 10/07/22 10/07/22 10/07/22 History multivitamin 1 tab PO DAILY 10/07/22 10/07/22 10/07/22 History omeprazole 20 mg capsule,delayed 20 mg PO BID@0630,1630 10/07/22 10/07/22 10/07/22 History release zaleplon 5 mg capsule 5 mg PO BEDTIME PRN insomnia 10/07/22 10/07/22 Unknown History Physical Exam Vital Signs and Narrative: Vital Signs: Last Vital Signs Temp 97.9 F 10/08/22 11:49 Pulse 78 10/08/22 11:51 Resp 17 10/08/22 11:49 BP 115/61 10/08/22 11:51 Pulse Ox 95 10/08/22 11:49 O2 Del Method Nasal Cannula 10/08/22 11:49 O2 Flow Rate 2 10/08/22 11:49 Oxygen Flow Rate 2 10/07/22 10:00 BMI result Body Mass Index 46.2 Dorsalis pedis pulses palpable in the right lower extremity. No gross evidence of redness, warmth or streaking in the right lower extremity to suggest cellulitis. Significant pain with drape removal. Significant pain with sponge removal from the wound base. Spontaneous sanguinous drainage is observed upon removal of the black sponge. Wound measurements are roughly 10 x 10 x 0.8 cm. Copious granulation tissue is seen at the base of the wound. The depth is most lateral. Medial aspect is more superficial. No odor. Results Labs 10/07/22 10:18 10/08/22 06:20 Labs: Laboratory Results - last 24 hr 10/07/22 10/07/22 10/07/22 10:18 13:41 13:43 Anion Gap Estim Creat Clear Calc Estimated GFR Random Glucose Calcium Magnesium Iron 27 L TIBC 196 L % Saturation 14 L Unsat Iron Binding 169 Urine Color Yellow Urine Appearance Clear Urine pH 7.0 Ur Specific [place] <= 1.005 Urine Protein Negative Urine Glucose (UA) Negative Urine Ketones Negative Urine Blood Negative Urine Nitrite Negative Ur Leukocyte Esterase Negative Stool Occult Blood NEGATIVE 10/08/22 06:20 Anion Gap 14 Estim Creat Clear Calc 70.9 Estimated GFR > 60 Random Glucose 103 Calcium 9.0 Magnesium 1.4 L* Iron TIBC % Saturation Unsat Iron Binding Urine Color Urine Appearance Urine pH Ur Specific [place] Urine Protein Urine Glucose (UA) Urine Ketones Urine Blood Urine Nitrite Ur Leukocyte Esterase Stool Occult Blood Assessment and Plan (1) Non-pressure chronic ulcer of other part of right lower leg with unspecified severity: Status: Acute Plan 77-year-old female with relatively chronic right anterior corwe wound for which skin grafting is planned at [facility]. Arguably, the anemia takes precedence because she is symptomatic, dizzy and syncopal. Would recommend discontinuation of the VAC until anemia improves. Silver alginate is a proper alternative dressing to be changed daily if drainage warrants. Otherwise, every other day is appropriate. GRETEL wrap for leg edema as tolerated. Defer outpatient recommendations to her surgeon at [facility], Dr. Garcia. From a granulation perspective, it is probably not imperative that the VAC continue but outpatient care is deferred to her surgical team. I do not see a role for surgical consultation in this setting for debridement as the wound is relatively clean. Additionally, reduction of blood loss may improve her clinical picture. No role for follow-up at wound care clinic here because of surgical care at [facility]. Reached out to hospitalist regarding plan. Time spent on removing vac, replacing dressing and patient education is 30 minutes. Time Spent With Patient Time: Total time managing care of this patient today __30__ minutes.
[2022-10-08] MEDS: Iron Sucrose Complex 200 MG in 0.9 % Sodium Chloride 100 ML 440 MG IV (13:30)
--- NOTE | 2022-10-08 13:35 | MHC.CM.PN ---
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
[2022-10-08] MEDS: Enoxaparin Sodium 40 MG/0.4 ML SYRINGE SUBCUT (16:11)
[2022-10-08] MEDS: Atorvastatin Calcium 40 MG TABLET PO (20:27)
[2022-10-08] MEDS: HYDROmorphone HCl 0.5 MG/0.5 ML SYRINGE IVPUSH (22:07)
--- NOTE | 2022-10-08 22:34 | P.EN_ITS ---
Event Note Date of Service: 10/08/22 Event Note: Nurse called me about patient having redness, swelling, and warmth on her right lower extremity. Patient had wound VAC removed today. On evaluation patient does have significant redness, significant tenderness, warmth, as well as edema. On removing the wound dressing, the wound appears to have greenish discharge, very tender to touch, will obtain venous duplex, will start her on IV antibiotics, infectious disease consult, blood cultures lactic acid and CBC o rdered Time Spent With Patient Time: Total time managing care of this patient today ____ minutes.
[2022-10-08] MEDS: ceFAZolin Sodium/Dextrose,Iso 2 GM/50 ML PIGGYBACK IV (22:59)
[2022-10-09] VITALS (7 sets, daily range): BP systolic 99–125; BP diastolic 44–59; PULSE 75–87; RESP 14–20; TEMP 36.1–37.1; O2SAT 91–94
[2022-10-09 00:05] LABS: MANUAL DIFF FLAG NO
[2022-10-09 00:06] LABS: Basophils Absolute Auto 0.1 X10*3/uL (0.0-0.2); Basophils Percent Auto 0.7 % (0-2); Eosinophils Absolute Auto 0.2 X10*3/uL (0.0-0.4); Eosinophils Percent Auto 2.5 % (0-4); Hematocrit 26.8 % (37.0-47.0); Hemoglobin 8.5 g/dl (12.0-16.0); Imm Gran Abs Auto 0.04 X10*3/uL (0.00-0.03); Imm Gran Pct Auto 0.4 % (0.0-0.4); Lymphocytes Absolute Auto 0.8 X10*3/uL (1.2-4.9); Lymphocytes Percent Auto 9.1 % (20-40); Mean Corpuscular HGB Conc 31.7 g/dl (31.0-35.0); Mean Corpuscular Hemoglobin 29.9 pg (27.0-33.0); Mean Corpuscular Volume 94.4 fL (80.0-98.0); Mean Platelet Volume 10.5 fL (9.4-12.3); Monocytes Percent Auto 11.3 % (2-11); Neutrophils Absolute Auto 6.8 x10*3/uL (2.0-8.3); Platelet Count 342 X10*3/uL (160-400); Red Blood Count 2.84 X10*6/uL (4.20-5.50); Red Cell Distribution Width 14.4 % (11.0-16.0); White Blood Count 8.9 X10*3/uL (4.8-10.8)
--- NOTE | 2022-10-09 00:15 | PC.NURSE ---
Upon assessment, pt's RLE noticed to be edematous with some redness, and was significantly warmer to touch than LLE. Pt c/o severe pain to light touch of the RLE. MD notified and came to bedside at approx 2120 - ordered labs, VD, IV abx, and cultures. This RN performed dressing change at 2230 and noted greenish/yellow discharge with slight bleeding to the area. Cleaned area with sterile water and dried. Silver alginate cut to fit wound and applied to appropriate area. Covered with dry gauze and gauze roll and covered with loose GRETEL wrap. Abx administered per SEP. Pt treated for pain. Will continue with plan of care.
[2022-10-09 00:16] LABS: Lactic Acid 0.7 mmol/L (0.5-2.0)
[2022-10-09] MEDS: Levothyroxine Sodium 112 MCG TABLET PO (04:23)
[2022-10-09] MEDS: HYDROmorphone HCl 2 MG TABLET PO ×3 (04:23→21:27)
[2022-10-09] MEDS: ceFAZolin Sodium/Dextrose,Iso 2 GM/50 ML PIGGYBACK IV ×3 (05:21→21:18)
[2022-10-09] MEDS: Omeprazole 20 MG CAPSULE.DR PO ×2 (05:21→16:23)
[2022-10-09 06:36] LABS: Hematocrit 28.1 % (37.0-47.0); Hemoglobin 8.8 g/dl (12.0-16.0); Mean Corpuscular HGB Conc 31.3 g/dl (31.0-35.0); Mean Corpuscular Hemoglobin 30.6 pg (27.0-33.0); Mean Corpuscular Volume 97.6 fL (80.0-98.0); Mean Platelet Volume 10.1 fL (9.4-12.3); Platelet Count 297 X10*3/uL (160-400); Red Blood Count 2.88 X10*6/uL (4.20-5.50); Red Cell Distribution Width 14.6 % (11.0-16.0); White Blood Count 7.5 X10*3/uL (4.8-10.8)
[2022-10-09 06:50] LABS: Anion Gap 15 (12-20); Blood Urea Nitrogen 10 mg/dL (9-16); Calcium 8.6 mg/dL (8.4-10.2); Carbon Dioxide 24 mmol/L (22-29); Chloride 100 mmol/L (96-108); Creatinine Clr Calc Pharmacy 64.2; Estimated Glomerular Filt Rate > 60; Glucose Random 111 mg/dL (60-115); Potassium 3.4 mmol/L (3.3-5.1); Sodium 136 mmol/L (135-145)
--- NOTE | 2022-10-09 07:46 | HE.PHANOTE ---
Re: vanco dosing SCr stable at 0.84. Trough scheduled for 10/10 @2100. Expected auc 477 after 3rd dose. Continue on current dosing.
[2022-10-09] MEDS: 0.9 % Sodium Chloride Flush 3 ML SYRINGE IVFLUSH ×3 (09:39→21:19)
[2022-10-09] MEDS: Multivitamin TABLET 1 TAB PO (09:39)
[2022-10-09] MEDS: carvediloL 12.5 MG TABLET PO ×2 (09:39→21:19)
[2022-10-09] MEDS: Escitalopram Oxalate 5 MG TABLET PO (09:39)
[2022-10-09] MEDS: Cholecalciferol (Vitamin D3) 25 MCG TABLET PO (09:39)
[2022-10-09] MEDS: Furosemide 20 MG TABLET PO (09:39)
[2022-10-09] MEDS: Gabapentin 300 MG CAPSULE PO ×3 (09:39→21:19)
[2022-10-09] MEDS: Iron Sucrose Complex 200 MG in 0.9 % Sodium Chloride 100 ML 440 MG IV (11:08)
--- NOTE | 2022-10-09 13:08 | P.PNIM_ITS ---
Subjective Subjective Date of Service: 10/09/22 Interval History: Feels weak and low energy no more syncope, no reported dizziness complaining of pain in LE and unable to ambulate safely PT recommends STR No other overnight events Review of Systems No fever, chills or weakness No chest pain, palpitation No shortness of breath or coughing No abdominal pain, nausea or vomiting No urinary symptoms No any rash or wounds Physical Exam Vital Signs: Vital Signs: Last Vital Signs Temp 98.8 F 10/09/22 07:42 Pulse 83 10/09/22 07:42 Resp 20 10/09/22 07:42 BP 125/57 L 10/09/22 07:42 Pulse Ox 94 10/09/22 07:42 O2 Del Method Nasal Cannula 10/09/22 07:42 O2 Flow Rate 1.5 10/09/22 07:42 Oxygen Flow Rate 2 10/07/22 10:00 BMI result Body Mass Index 46.2 Const: Other: Constitutional : Awake, interactive, morbidly obese, not in distress Neck : Normal inspection, Supple Cardiovascular : RRR, no JVP, no lower extremity edema Respiratory : good bilateral air entry, no crackles, wheezes or rhonchi Gastrointestinal: soft, lax, Normal bowel sounds, Non tender Skin : Warm, Dry, RLE wound cover with wound Vac, mild surrounding erythema but no tenderness Neurological : Alert & oriented x3, No focal deficit Objective Data Active Medications Albuterol Sulfate (Albuterol Sulfate 90 Mcg 8 Gm Inhaler) 2 puff INHALE Q6H PRN PRN Reason: Wheezing Atorvastatin Calcium (Atorvastatin Calcium 40 Mg Tablet) 40 mg PO BEDTIME [facility] Last Admin: 10/08/22 20:27 Dose: 40 mg Documented By: AJRON Carvedilol (Carvedilol 12.5 Mg Tablet) 12.5 mg PO BID [facility]; Protocol Last Admin: 10/09/22 09:39 Dose: 12.5 mg Documented By: WADE Dicyclomine HCl (Dicyclomine Hcl 10 Mg Capsule) 10 mg PO BID PRN PRN Reason: Spasms Docusate Sodium (Docusate Sodium 100 Mg Capsule) 100 mg PO BID PRN PRN Reason: Constipation Last Admin: 10/07/22 20:30 Dose: 100 mg Documented By: EMMANUEL Enoxaparin Sodium (Enoxaparin Sodium 40 Mg/0.4 Ml Syringe) 40 mg SUBCUT Q24H [facility] Last Admin: 10/08/22 16:11 Dose: 40 mg Documented By: DEBBIE Escitalopram Oxalate (Escitalopram Oxalate 5 Mg Tablet) 5 mg PO DAILY [facility] Last Admin: 10/09/22 09:39 Dose: 5 mg Documented By: WADE Fluticasone Propionate (Fluticasone Propionate Nasal 16 Gm [place]) 1 spray NOSTRIL-B DAILY [facility] Last Admin: 10/09/22 11:09 Dose: Not Given Documented By: WADE Non-Admin Reason: Patient Refused Furosemide (Furosemide 20 Mg Tablet) 20 mg PO DAILY [facility]; Protocol Last Admin: 10/09/22 09:39 Dose: 20 mg Documented By: WADE Gabapentin (Gabapentin 300 Mg Capsule) 300 mg PO TID [facility] Last Admin: 10/09/22 09:39 Dose: 300 mg Documented By: WADE Hydromorphone HCl (Hydromorphone Hcl 2 Mg Tablet) 2 mg PO Q8H PRN PRN Reason: Pain, Severe (Pain Scale 7-10) Last Admin: 10/09/22 04:23 Dose: 2 mg Documented By: JARON Iron Sucrose 200 mg/ Sodium (Chloride) 110 mls @ 440 mls/hr IV DAILY [facility] Stop: 10/10/22 09:14 Last Infusion: 10/09/22 11:56 Dose: 0 mls/hr Documented By: WADE Cefazolin Sodium/Dextrose (Ancef) 2 gm in 50 mls @ 100 mls/hr IV Q8H [facility] Last Infusion: 10/09/22 06:12 Dose: 0 mls/hr Documented By: JARON Vancomycin HCl 1,250 mg/ (Sodium Chloride) 250 mls @ 166.667 mls/hr IV Q24H [facility] Levothyroxine Sodium (Levothyroxine Sodium 112 Mcg Tablet) 112 mcg PO DAILY@0600 [facility] Last Admin: 10/09/22 04:23 Dose: 112 mcg Documented By: JARON Multivitamins/Vitamin C (Multivitamin Tablet) 1 tab PO DAILY [facility] Last Admin: 10/09/22 09:39 Dose: 1 tab Documented By: WADE Non-Formulary Medication (Budesonide) 3 mg PO DAILY [facility] Omeprazole (Omeprazole 20 Mg Capsule.) 20 mg PO BID@0630,7900 [facility] Last Admin: 10/09/22 05:21 Dose: 20 mg Documented By: JARON Ondansetron HCl (Ondansetron Hcl 4 Mg/2 Ml Vial) 4 mg IVPUSH Q8H PRN PRN Reason: Nausea and Vomiting Last Admin: 10/07/22 17:12 Dose: 4 mg Documented By: NAVID Pharmacy Consult (Consult Rx Perform Med Rec) 1 each MISCELLANE ONCE PRN PRN Reason: Consult order Pharmacy Consult (Consult Rx Vancomycin Dosing) 1 each MISCELLANE DAILY PRN PRN Reason: Consult order Sodium Chloride (0.9 % Sodium Chloride Flush 3 Ml Syringe) 3 ml IVFLUSH QSHIFT [facility] Last Admin: 10/09/22 09:39 Dose: 3 ml Documented By: WADE Vitamin D (Cholecalciferol (Vitamin D3) 25 Mcg Tablet) 25 mcg PO DAILY [facility] Last Admin: 10/09/22 09:39 Dose: 25 mcg Documented By: WADE Labs 10/09/22 06:20 10/09/22 06:21 Labs: Laboratory Results - last 24 hr 10/08/22 10/08/22 10/09/22 23:43 23:43 06:20 MCV 94.4 97.6 MCH 29.9 30.6 MCHC 31.7 31.3 RDW 14.4 14.6 Plt Count 342 297 MPV 10.5 10.1 Immature Gran % (Auto) 0.4 Neut % (Auto) 76.0 H Lymph % (Auto) 9.1 L Mccreary % (Auto) 11.3 H Eos % (Auto) 2.5 Baso % (Auto) 0.7 Lymph # (Auto) 0.8 L Mccreary # (Auto) 1.0 Eos # (Auto) 0.2 Baso # (Auto) 0.1 Abs Immat Gran (auto) 0.04 H Absolute Neuts (auto) 6.8 Absolute Nucleated RBC 0.000 0.000 Nucleated RBC % (auto) 0.0 0.0 Anion Gap Estim Creat Clear Calc Estimated GFR Random Glucose Lactic Acid 0.7 Calcium 10/09/22 06:21 MCV MCH MCHC RDW Plt Count MPV Immature Gran % (Auto) Neut % (Auto) Lymph % (Auto) Mccreary % (Auto) Eos % (Auto) Baso % (Auto) Lymph # (Auto) Mccreary # (Auto) Eos # (Auto) Baso # (Auto) Abs Immat Gran (auto) Absolute Neuts (auto) Absolute Nucleated RBC Nucleated RBC % (auto) Anion Gap 15 Estim Creat Clear Calc 64.2 Estimated GFR > 60 Random Glucose 111 Lactic Acid Calcium 8.6 Assessment and Plan (1) Non-pressure chronic ulcer of other part of right lower leg with unspecified severity: Status: Acute (2) Hypomagnesemia: Status: Acute (3) Anemia: Status: Acute Plan A 77 years old lady with PMH of ILD on 2L, HTN, RLE wound Vac since Aug 2022 among others who presents to the hospital after an episode of dizziness and syncope. Syncope likely orthostatic hypotension, resolved keep on Tele Hold Losartan stable orthostatic vitals PT recommends STR Iron deficiency anemia, chronic likely related to chronic loss from VAC in open wound and chronic illness Iron studies showing low Iron, TIBC and sat IV Iron supplement, PO on discharge No indication to transfuse chronic wound RLE Wound-VAC was removed by wound team until anemia improves Silver Alginate with daily dressing GRETEL wrap To follow with dr Garcia at [facility] PHysical deconditioning PT recommended SNF placement Hypomagnesemia recieved IV replacement Morbid obesity advised to lose weight Hypothyroid Levothyroixn ILD on 2L Continue inhalors, Budesonide and O2 supplement DVT PPx Lovenox Needs to stay for hypomagnesemia, IV Iron, STR placement. Time Spent With Patient Time: Total time managing care of this patient today ____ minutes. Quality Stroke Does the patient have a stroke diagnosis?: No VTE Prior VTE?: No VTE Risk Level:: Medical - moderate - high VTE Device Contraindication: Treatment Not Indicated VTE Drug Contraindication: N/A - Med Ordered
[2022-10-09] MEDS: Enoxaparin Sodium 40 MG/0.4 ML SYRINGE SUBCUT (16:23)
[2022-10-09] MEDS: HYDROmorphone HCl 0.5 MG/0.5 ML SYRINGE IVPUSH (18:53)
[2022-10-09] MEDS: Atorvastatin Calcium 40 MG TABLET PO (21:19)
--- NOTE | 2022-10-09 23:16 | P.CNID_ITS ---
History of Present Illness Data of Consult Service Date: 10/09/22 Requesting physician: Bassam Lima Primary Care Provider: Etelvina Veloz NP HPI Reason for consult: right leg celllulitis She presents to hospital with dizziness for a day. She is on telemetry. She also has been seeing [facility] right crowe ulcer. She has Wound Vac now removed. Review of Systems Review of Systems: Yes all other systems are reviewed and are negative PMFSH Past Medical History Medical History HTN (hypertension) ILD (interstitial lung disease) Family History Family history: reviewed and not pertinent Social History Social History Household Members: Spouse Housing: House Do you presently have visiting nurse or other home services: Yes (VNA, PT, OT, GL[employer] TECHNICIAN) Alcohol intake: current Alcohol intake frequency: a few times a week Alcohol type: wine Patient Tobacco Use Status: Former Tobacco user Smoked in Last 30 Days: No Use of substances other than those prescribed or required for medical reasons: No Currently Displaying Signs/Symptoms of Drug Intoxication Withdrawal: No Have you been hit, kicked, punched, or otherwise hurt by someone within the past year? If so, by whom?: No Do you feel safe in your current relationship?: No Is there a partner from a previous relationship who is making you feel unsafe now?: No Are you made to feel afraid or neglected: No Advance Directives: Yes Advance Directives Information Provided: Yes Advance Directives on File: No Advance Directives Date on File: 10/07/22 Do you have thoughts of harming others: None Do you have a plan to hurt others: No Plan Recently lost weight without trying: No Eating poorly because of decreased appetite: No Nutrition Risks: No Nutritional Risk Patient : No : No service: No Meds Allergies Allergy/AdvReac Type Severity Reaction Status Date / Time acetaminophen [Vicodin] Allergy Unknown vomiting; Verified 10/25/18 00:00 dizziness hydrocodone [Vicodin] Allergy Unknown vomiting; Verified 10/25/18 00:00 dizziness morphine Allergy Unknown Confusion Verified 10/25/18 00:00 oxycodone [Percocet] Allergy Unknown Vomiting, Verified 10/25/18 00:00 fainting penicillin V Allergy Unknown Rash Verified 10/25/18 00:00 tetracycline Allergy Unknown Stomach Verified 10/25/18 00:00 upset tramadol [Ultram] Allergy Unknown Violent N Verified 10/25/18 00:00 & V all codeine Allergy Unknown Uncoded 10/25/18 00:00 Codeine Sulfate Allergy Unknown Vomiting; Uncoded 10/25/18 00:00 fainting Active Medications: Current Medications Albuterol Sulfate (Albuterol Sulfate 90 Mcg 8 Gm Inhaler) 2 puff INHALE Q6H PRN PRN Reason: Wheezing Atorvastatin Calcium (Atorvastatin Calcium 40 Mg Tablet) 40 mg PO BEDTIME [facility] Last Admin: 10/09/22 21:19 Dose: 40 mg Carvedilol (Carvedilol 12.5 Mg Tablet) 12.5 mg PO BID [facility]; Protocol Last Admin: 10/09/22 21:19 Dose: 12.5 mg Dicyclomine HCl (Dicyclomine Hcl 10 Mg Capsule) 10 mg PO BID PRN PRN Reason: Spasms Docusate Sodium (Docusate Sodium 100 Mg Capsule) 100 mg PO BID PRN PRN Reason: Constipation Last Admin: 10/07/22 20:30 Dose: 100 mg Enoxaparin Sodium (Enoxaparin Sodium 40 Mg/0.4 Ml Syringe) 40 mg SUBCUT Q24H [facility] Last Admin: 10/09/22 16:23 Dose: 40 mg Escitalopram Oxalate (Escitalopram Oxalate 5 Mg Tablet) 5 mg PO DAILY [facility] Last Admin: 10/09/22 09:39 Dose: 5 mg Fluticasone Propionate (Fluticasone Propionate Nasal 16 Gm [place]) 1 spray NOSTRIL-B DAILY [facility] Last Admin: 10/09/22 11:09 Dose: Not Given Furosemide (Furosemide 20 Mg Tablet) 20 mg PO DAILY [facility]; Protocol Last Admin: 10/09/22 09:39 Dose: 20 mg Gabapentin (Gabapentin 300 Mg Capsule) 300 mg PO TID [facility] Last Admin: 10/09/22 21:19 Dose: 300 mg Hydromorphone HCl (Hydromorphone Hcl 2 Mg Tablet) 2 mg PO Q8H PRN PRN Reason: Pain, Severe (Pain Scale 7-10) Last Admin: 10/09/22 21:27 Dose: 2 mg Iron Sucrose 200 mg/ Sodium (Chloride) 110 mls @ 440 mls/hr IV DAILY [facility] Stop: 10/10/22 09:14 Last Infusion: 10/09/22 11:56 Dose: Infused Cefazolin Sodium/Dextrose (Ancef) 2 gm in 50 mls @ 100 mls/hr IV Q8H [facility] Last Infusion: 10/09/22 21:59 Dose: Infused Vancomycin HCl 1,250 mg/ (Sodium Chloride) 250 mls @ 166.667 mls/hr IV Q24H [facility] Levothyroxine Sodium (Levothyroxine Sodium 112 Mcg Tablet) 112 mcg PO DAILY@0600 [facility] Last Admin: 10/09/22 04:23 Dose: 112 mcg Multivitamins/Vitamin C (Multivitamin Tablet) 1 tab PO DAILY [facility] Last Admin: 10/09/22 09:39 Dose: 1 tab Non-Formulary Medication (Budesonide) 3 mg PO DAILY [facility] Omeprazole (Omeprazole 20 Mg Capsule.Dr) 20 mg PO BID@0630,1630 [facility] Last Admin: 10/09/22 16:23 Dose: 20 mg Ondansetron HCl (Ondansetron Hcl 4 Mg/2 Ml Vial) 4 mg IVPUSH Q8H PRN PRN Reason: Nausea and Vomiting Last Admin: 10/07/22 17:12 Dose: 4 mg Pharmacy Consult (Consult Rx Perform Med Rec) 1 each MISCELLANE ONCE PRN PRN Reason: Consult order Pharmacy Consult (Consult Rx Vancomycin Dosing) 1 each MISCELLANE DAILY PRN PRN Reason: Consult order Sodium Chloride (0.9 % Sodium Chloride Flush 3 Ml Syringe) 3 ml IVFLUSH QSHIFT [facility] Last Admin: 10/09/22 21:19 Dose: 3 ml Vitamin D (Cholecalciferol (Vitamin D3) 25 Mcg Tablet) 25 mcg PO DAILY [facility] Last Admin: 10/09/22 09:39 Dose: 25 mcg Home Medications Medication Instructions Recorded Confirmed Last Taken Type acetaminophen 325 mg tablet 650 mg PO Q4H PRN Pain 10/07/22 10/07/22 Unknown History (Tylenol) albuterol sulfate 90 mcg/actuation 2 puff inhalation Q6H PRN Wheezing 10/07/22 10/07/22 Unknown History aerosol inhaler atorvastatin 40 mg tablet 40 mg PO BEDTIME 10/07/22 10/07/22 10/06/22 History budesonide 3 mg 3 mg PO DAILY 10/07/22 10/07/2210/07/23 History capsule,delayed,extended release carvedilol 12.5 mg tablet 12.5 mg PO BID 10/07/22 10/07/22 10/07/22 History cholecalciferol (vitamin D3) 25 25 mcg PO DAILY 10/07/22 10/07/22 10/07/22 History mcg (1,000 unit) tablet citalopram 10 mg tablet 10 mg PO DAILY 10/07/22 10/07/22 10/07/22 History dicyclomine 10 mg capsule 10 mg PO BID PRN Spasms 10/07/22 10/07/22 Unknown History fluticasone propionate 50 1 spray intranasal DAILY 10/07/22 10/07/22 10/07/22 History mcg/actuation nasal spray,suspension furosemide 20 mg tablet 20 mg PO DAILY 10/07/22 10/07/22 10/07/22 History gabapentin 300 mg capsule 300 mg PO TID 10/07/22 10/07/22 10/07/22 History levothyroxine 112 mcg tablet 112 mcg PO DAILY@0600 10/07/22 10/07/22 10/07/22 History losartan 50 mg tablet 50 mg PO DAILY 10/07/22 10/07/22 10/07/22 History multivitamin 1 tab PO DAILY 10/07/22 10/07/22 10/07/22 History omeprazole 20 mg capsule,delayed 20 mg PO BID@0630,1630 10/07/22 10/07/22 10/07/22 History release zaleplon 5 mg capsule 5 mg PO BEDTIME PRN insomnia 10/07/22 10/07/22 Unknown History Physical Exam Vital Signs: Vital Signs: Last Vital Signs Temp 97.8 F 10/09/22 23:14 Pulse 75 10/09/22 23:14 Resp 20 10/09/22 23:14 BP 99/44 L 10/09/22 23:14 Pulse Ox 91 L 10/09/22 23:14 O2 Del Method Nasal Cannula 10/09/22 23:14 O2 Flow Rate 1 10/09/22 23:14 Oxygen Flow Rate 2 10/07/22 10:00 BMI result Body Mass Index 46.2 Const: General: cooperative HEENT: Head: Yes normal to inspection Face and sinus: Yes normal facial exam Mouth: Normal oral and palatal mucosa present Teeth and gingiva: dentition normal Eyes: General: appearance normal, both eyes and all related structures Pupils: Equal, round and reactive pupils present Resp: Effort & Inspection: normal respiratory effort Cardio: Rate: regular rate Rhythm: regular rhythm GI: Palpation (GI): Soft to palpation and nontender : General: Yes no CVA tenderness Back/Spine/Pelvis: Back: no CVA tenderness Skin: General skin exam: no rashes or lesions noted Neuro: General: moves all extremities Cranial nerves: Yes Equal, round and reactive pupils present Extrem: Other: reddened right leg generally Psych: Appearance: grossly normal Results Labs 10/09/22 06:20 10/09/22 06:21 Labs: Short CBC 10/08/22 10/09/22 Range/Units 23:43 06:20 WBC 8.9 7.5 (4.8-10.8) X10*3/uL Hgb 8.5 L 8.8 L (12.0-16.0) g/dl Hct 26.8 L 28.1 L (37.0-47.0) % Plt Count 342 297 (160-400) X10*3/uL BMP 10/09/22 06:21 Sodium 136 Potassium 3.4 Chloride 100 Carbon Dioxide 24 BUN 10 Creatinine 0.84 Calcium 8.6 Assessment and Plan (1) Non-pressure chronic ulcer of other part of right lower leg with unspecified severity: Status: Acute This is probably due to staph or staph and may have resistant organisms There is possible gram negatives. Plan Continue IV antibiotics possible 3-5 days Vancomycin and Zosyn tomorrow if not improved. Follow Wound Clinic. Time Spent With Patient Time: Total time managing care of this patient today ____ minutes.
[2022-10-09] MEDS: vancomycin HCL 1,250 MG in 0.9 % Sodium Chloride 250 ML 166.67 MG IV (23:52)
[2022-10-10] VITALS (7 sets, daily range): BP systolic 92–121; BP diastolic 40–53; PULSE 73–91; RESP 18–20; TEMP 36.3–37.4; O2SAT 91–95
[2022-10-10] MEDS: HYDROmorphone HCl 0.5 MG/0.5 ML SYRINGE IVPUSH (06:39)
[2022-10-10] MEDS: Levothyroxine Sodium 112 MCG TABLET PO (06:40)
[2022-10-10] MEDS: ceFAZolin Sodium/Dextrose,Iso 2 GM/50 ML PIGGYBACK IV (06:40)
[2022-10-10] MEDS: Omeprazole 20 MG CAPSULE.DR PO ×2 (06:40→15:51)
[2022-10-10 08:00] LABS: Estimated Glomerular Filt Rate 48
[2022-10-10] MEDS: Multivitamin TABLET 1 TAB PO (09:59)
[2022-10-10] MEDS: Furosemide 20 MG TABLET PO (09:59)
[2022-10-10] MEDS: 0.9 % Sodium Chloride Flush 3 ML SYRINGE IVFLUSH ×3 (09:59→21:28)
[2022-10-10] MEDS: Cholecalciferol (Vitamin D3) 25 MCG TABLET PO (09:59)
[2022-10-10] MEDS: Gabapentin 300 MG CAPSULE PO ×3 (09:59→21:23)
[2022-10-10] MEDS: Escitalopram Oxalate 5 MG TABLET PO (09:59)
[2022-10-10] MEDS: carvediloL 12.5 MG TABLET PO (09:59)
[2022-10-10] MEDS: cefEPime HCl 2 GM in 0.9 % Sodium Chloride 50 ML IV ×2 (10:13→21:25)
--- NOTE | 2022-10-10 11:03 | P.PNIM_ITS ---
Subjective Subjective Date of Service: 10/10/22 Interval History: Feels weak and low energy no more syncope, no reported dizziness complaining of pain in bilateral LE and unable to ambulate safely. wound seems infected PT recommends STR No other overnight events Review of Systems No fever, chills or weakness No chest pain, palpitation No shortness of breath or coughing No abdominal pain, nausea or vomiting No urinary symptoms No any rash or wounds Physical Exam Vital Signs: Vital Signs: Last Vital Signs Temp 98.4 F 10/10/22 08:00 Pulse 90 10/10/22 08:00 Resp 20 10/10/22 08:00 BP 107/53 L 10/10/22 08:00 Pulse Ox 94 10/10/22 08:00 O2 Del Method Nasal Cannula 10/10/22 08:00 O2 Flow Rate 2 10/10/22 08:00 Oxygen Flow Rate 2 10/07/22 10:00 BMI result Body Mass Index 46.2 Const: Other: Constitutional : Awake, interactive, morbidly obese, not in distress Neck : Normal inspection, Supple Cardiovascular : RRR, no JVP, no lower extremity edema Respiratory : good bilateral air entry, no crackles, wheezes or rhonchi Gastrointestinal: soft, lax, Normal bowel sounds, Non tender Skin : Warm, Dry, RLE wound cover with dressing, mild surrounding erythema with increased tenderness Neurological : Alert & oriented x3, No focal deficit Objective Data Active Medications Albuterol Sulfate (Albuterol Sulfate 90 Mcg 8 Gm Inhaler) 2 puff INHALE Q6H PRN PRN Reason: Wheezing Atorvastatin Calcium (Atorvastatin Calcium 40 Mg Tablet) 40 mg PO BEDTIME [facility] Last Admin: 10/09/22 21:19 Dose: 40 mg Documented By: JARON Carvedilol (Carvedilol 12.5 Mg Tablet) 12.5 mg PO BID [facility]; Protocol Last Admin: 10/10/22 09:59 Dose: 12.5 mg Documented By: WADE Dicyclomine HCl (Dicyclomine Hcl 10 Mg Capsule) 10 mg PO BID PRN PRN Reason: Spasms Docusate Sodium (Docusate Sodium 100 Mg Capsule) 100 mg PO BID PRN PRN Reason: Constipation Last Admin: 10/07/22 20:30 Dose: 100 mg Documented By: EMMANUEL Enoxaparin Sodium (Enoxaparin Sodium 40 Mg/0.4 Ml Syringe) 40 mg SUBCUT Q24H [facility] Last Admin: 10/09/22 16:23 Dose: 40 mg Documented By: WADE Escitalopram Oxalate (Escitalopram Oxalate 5 Mg Tablet) 5 mg PO DAILY [facility] Last Admin: 10/10/22 09:59 Dose: 5 mg Documented By: WADE Fluticasone Propionate (Fluticasone Propionate Nasal 16 Gm [place]) 1 spray NOSTRIL-B DAILY [facility] Last Admin: 10/10/22 10:00 Dose: Not Given Documented By: WADE Non-Admin Reason: Patient Refused Furosemide (Furosemide 20 Mg Tablet) 20 mg PO DAILY [facility]; Protocol Last Admin: 10/10/22 09:59 Dose: 20 mg Documented By: WADE Gabapentin (Gabapentin 300 Mg Capsule) 300 mg PO TID [facility] Last Admin: 10/10/22 09:59 Dose: 300 mg Documented By: WADE Hydromorphone HCl (Hydromorphone Hcl 2 Mg Tablet) 2 mg PO Q8H PRN PRN Reason: Pain, Severe (Pain Scale 7-10) Last Admin: 10/09/22 21:27 Dose: 2 mg Documented By: JARON Vancomycin HCl 1,250 mg/ (Sodium Chloride) 250 mls @ 166.667 mls/hr IV Q24H [facility] Last Infusion: 10/10/22 02:03 Dose: 0 mls/hr Documented By: JARON Cefepime HCl 2 gm/ Sodium (Chloride) 50 mls @ 100 mls/hr IV Q12H [facility] Last Infusion: 10/10/22 10:46 Dose: 0 mls/hr Documented By: WADE Levothyroxine Sodium (Levothyroxine Sodium 112 Mcg Tablet) 112 mcg PO DAILY@0600 [facility] Last Admin: 10/10/22 06:40 Dose: 112 mcg Documented By: JARON Multivitamins/Vitamin C (Multivitamin Tablet) 1 tab PO DAILY [facility] Last Admin: 10/10/22 09:59 Dose: 1 tab Documented By: WADE Non-Formulary Medication (Budesonide) 3 mg PO DAILY [facility] Omeprazole (Omeprazole 20 Mg [place]asha.) 20 mg PO BID@0630,1630 [facility] Last Admin: 10/10/22 06:40 Dose: 20 mg Documented By: JARON Ondansetron HCl (Ondansetron Hcl 4 Mg/2 Ml Vial) 4 mg IVPUSH Q8H PRN PRN Reason: Nausea and Vomiting Last Admin: 10/07/22 17:12 Dose: 4 mg Documented By: NAVID Pharmacy Consult (Consult Rx Perform Med Rec) 1 each MISCELLANE ONCE PRN PRN Reason: Consult order Pharmacy Consult (Consult Rx Vancomycin Dosing) 1 each MISCELLANE DAILY PRN PRN Reason: Consult order Sodium Chloride (0.9 % Sodium Chloride Flush 3 Ml Syringe) 3 ml IVFLUSH QSHIFT [facility] Last Admin: 10/10/22 09:59 Dose: 3 ml Documented By: WADE Vitamin D (Cholecalciferol (Vitamin D3) 25 Mcg Tablet) 25 mcg PO DAILY [facility] Last Admin: 10/10/22 09:59 Dose: 25 mcg Documented By: WADE Labs 10/09/22 06:20 10/10/22 06:44 Labs: Laboratory Results - last 24 hr 10/10/22 06:44 Estim Creat Clear Calc 49.0 Estimated GFR 48 Microbiology Microbiology Results: Microbiology 10/08/22 23:43 Blood Culture - Preliminary Blood - Venous No growth after 24 hours. 10/08/22 23:43 Blood Culture - Preliminary Blood - Venous No growth after 24 hours. Assessment and Plan (1) Non-pressure chronic ulcer of other part of right lower leg with unspecified severity: Status: Acute (2) Cellulitis: Status: Acute (3) Iron deficiency anemia: Status: Acute Plan A 77 years old lady with PMH of ILD on 2L, HTN, RLE wound Vac since Aug 2022 among others who presents to the hospital after an episode of dizziness and syncope. Syncope likely orthostatic hypotension, resolved keep on Tele Hold Losartan stable orthostatic vitals PT recommends STR Iron deficiency anemia, chronic likely related to chronic loss from VAC in open wound and chronic illness Iron studies showing low Iron, TIBC and sat IV Iron supplement, PO on discharge No indication to transfuse Cellulitis 2/2 chronic wound RLE Wound-VAC was removed by wound team until anemia improves Silver Alginate with daily dressing GRETEL wrap ID input appreciated Continue Vancomycin and Cefepime To follow with dr Garcia at [facility] follow trough PHysical deconditioning PT recommended SNF placement Hypomagnesemia recieved IV replacement Morbid obesity advised to lose weight Hypothyroid Levothyroixn ILD on 2L Continue inhalors, Budesonide and O2 supplement DVT PPx Lovenox Needs to stay for cellulitis, IV Iron, STR placement. Time Spent With Patient Time: Total time managing care of this patient today ____ minutes. Quality Stroke Does the patient have a stroke diagnosis?: No VTE Prior VTE?: No VTE Risk Level:: Medical - moderate - high VTE Device Contraindication: Treatment Not Indicated VTE Drug Contraindication: N/A - Med Ordered
[2022-10-10] MEDS: Iron Sucrose Complex 200 MG in 0.9 % Sodium Chloride 100 ML 440 MG IV (11:13)
--- NOTE | 2022-10-10 12:45 | PC.NURSE ---
report received from overnight RN, medical claims assistant per SEP. Wound dressing changed, pt tolerated well. Pt experienced episode of incontinence, bed bath preformed x2 assist. BP 92/40 HR 73, recheck 102/52 manually with HR 74. Pt c/o severe pain to hands and feet and feeling very weak . MD notified. no new orders at this time. Safety precautions in place, call esrrano within reach. Family member at bedside.
[2022-10-10] MEDS: Enoxaparin Sodium 40 MG/0.4 ML SYRINGE SUBCUT (15:52)
[2022-10-10] MEDS: Docusate Sodium 100 MG CAPSULE PO (15:52)
[2022-10-10] MEDS: Atorvastatin Calcium 40 MG TABLET PO (21:24)
[2022-10-10] MEDS: HYDROmorphone HCl 2 MG TABLET PO (21:47)
[2022-10-10 21:54] LABS: Vancomycin Random 16.9 mcg/mL (15-20)
[2022-10-10] MEDS: vancomycin HCL 1,000 MG in 0.9 % Sodium Chloride 250 ML 270 MG IV (23:13)
[2022-10-11] VITALS (9 sets, daily range): BP systolic 94–135; BP diastolic 46–62; PULSE 83–90; RESP 16–20; TEMP 36.9–37.4; O2SAT 92–97
--- NOTE | 2022-10-11 | ECG_ITS ---
Test Reason : chest pressure Blood Pressure : / mmHG Vent. Rate : 092 BPM Atrial Rate : 092 BPM P-R Int : 134 ms QRS Dur : 096 ms QT Int : 358 ms P-R-T Axes : 089 026 046 degrees QTc Int : 442 ms Normal sinus rhythm Normal ECG When compared with ECG of 07-OCT-2022 10:23, No significant change was found Referred By: Bassam Lima Electronically Signed By:MARTITA SHAW
[2022-10-11] MEDS: Omeprazole 20 MG CAPSULE.DR PO ×2 (06:30→16:58)
[2022-10-11] MEDS: Levothyroxine Sodium 112 MCG TABLET PO (06:30)
[2022-10-11 07:21] LABS: Hematocrit 24.5 % (37.0-47.0); Hemoglobin 7.9 g/dl (12.0-16.0); Mean Corpuscular HGB Conc 32.2 g/dl (31.0-35.0); Mean Corpuscular Hemoglobin 30.4 pg (27.0-33.0); Mean Corpuscular Volume 94.2 fL (80.0-98.0); Mean Platelet Volume 10.1 fL (9.4-12.3); Platelet Count 357 X10*3/uL (160-400); Red Cell Distribution Width 14.4 % (11.0-16.0); White Blood Count 8.9 X10*3/uL (4.8-10.8)
[2022-10-11 07:36] LABS: Creatinine Clr Calc Pharmacy 58.6; Estimated Glomerular Filt Rate 60
[2022-10-11 07:38] LABS: Anion Gap 16 (12-20); Blood Urea Nitrogen 18 mg/dL (9-16); Calcium 8.8 mg/dL (8.4-10.2); Carbon Dioxide 26 mmol/L (22-29); Chloride 97 mmol/L (96-108); Creatinine Clr Calc Pharmacy 59.8; Estimated Glomerular Filt Rate > 60; Glucose Random 99 mg/dL (60-115); Potassium 3.5 mmol/L (3.3-5.1); Sodium 135 mmol/L (135-145)
[2022-10-11] MEDS: Escitalopram Oxalate 5 MG TABLET PO (08:46)
[2022-10-11] MEDS: Gabapentin 300 MG CAPSULE PO ×3 (08:46→20:45)
[2022-10-11] MEDS: Multivitamin TABLET 1 TAB PO (08:46)
[2022-10-11] MEDS: Cholecalciferol (Vitamin D3) 25 MCG TABLET PO (08:46)
[2022-10-11] MEDS: HYDROmorphone HCl 2 MG TABLET PO ×2 (08:48→20:45)
[2022-10-11] MEDS: cefEPime HCl 2 GM in 0.9 % Sodium Chloride 50 ML IV ×2 (08:57→20:51)
--- NOTE | 2022-10-11 09:10 | PC.NURSE ---
pt c/o chest pressure, but unable to describe or rate the pain on the scale 0-10. on assessment. pt HR 83. O2 sat 97% 2L NC. BP 98/58. MD Dr Lima notified. EKG obtained- normal sinus rhythm.
[2022-10-11] MEDS: 0.9 % Sodium Chloride Flush 3 ML SYRINGE IVFLUSH (09:33)
[2022-10-11] MEDS: 0.9 % Sodium Chloride 1,000 ML 999 ML IV ×2 (09:33→11:57)
[2022-10-11] MEDS: Midodrine HCl 5 MG TABLET PO ×3 (11:57→20:45)
--- NOTE | 2022-10-11 12:51 | P.PNIM_ITS ---
Subjective Subjective Date of Service: 10/11/22 Interval History: Feels weak and low energy BP running soft Hb dropped to 7.8 greenish discharge from RLE wound No other overnight events Review of Systems No fever, chills or weakness No chest pain, palpitation No shortness of breath or coughing No abdominal pain, nausea or vomiting No urinary symptoms No any rash or wounds Physical Exam Vital Signs: Vital Signs: Last Vital Signs Temp 98.5 F 10/11/22 11:25 Pulse 90 10/11/22 11:25 Resp 20 10/11/22 11:25 BP 94/58 L 10/11/22 11:25 Pulse Ox 93 10/11/22 11:25 O2 Del Method Nasal Cannula 10/11/22 11:25 O2 Flow Rate 2 10/11/22 11:25 Oxygen Flow Rate 2 10/07/22 10:00 BMI result Body Mass Index 46.2 Const: Other: Constitutional : Awake, interactive, morbidly obese, not in distress Neck : Normal inspection, Supple Cardiovascular : RRR, no JVP, no lower extremity edema Respiratory : good bilateral air entry, no crackles, wheezes or rhonchi Gastrointestinal: soft, lax, Normal bowel sounds, Non tender Skin : Warm, Dry, RLE wound cover with dressing, mild surrounding erythema with increased tenderness Neurological : Alert & oriented x3, No focal deficit Objective Data Active Medications Albuterol Sulfate (Albuterol Sulfate 90 Mcg 8 Gm Inhaler) 2 puff INHALE Q6H PRN PRN Reason: Wheezing Atorvastatin Calcium (Atorvastatin Calcium 40 Mg Tablet) 40 mg PO BEDTIME [facility] Last Admin: 10/10/22 21:24 Dose: 40 mg Documented By: JARON Carvedilol (Carvedilol 12.5 Mg Tablet) 12.5 mg PO BID [facility]; Protocol Last Admin: 10/10/22 19:14 Dose: Not Given Documented By: JARON Non-Admin Reason: Physician Held Med Dicyclomine HCl (Dicyclomine Hcl 10 Mg Capsule) 10 mg PO BID PRN PRN Reason: Spasms Docusate Sodium (Docusate Sodium 100 Mg Capsule) 100 mg PO BID PRN PRN Reason: Constipation Last Admin: 10/10/22 15:52 Dose: 100 mg Documented By: WADE Enoxaparin Sodium (Enoxaparin Sodium 40 Mg/0.4 Ml Syringe) 40 mg SUBCUT Q24H [facility] Last Admin: 10/10/22 15:52 Dose: 40 mg Documented By: WADE Escitalopram Oxalate (Escitalopram Oxalate 5 Mg Tablet) 5 mg PO DAILY [facility] Last Admin: 10/11/22 08:46 Dose: 5 mg Documented By: DEBBIE Fluticasone Propionate (Fluticasone Propionate Nasal 16 Gm [place]) 1 spray NOSTRIL-B DAILY [facility] Last Admin: 10/11/22 09:33 Dose: Not Given Documented By: DEBBIE Non-Admin Reason: Patient Refused Furosemide (Furosemide 20 Mg Tablet) 20 mg PO DAILY [facility]; Protocol Last Admin: 10/10/22 09:59 Dose: 20 mg Documented By: WADE Gabapentin (Gabapentin 300 Mg Capsule) 300 mg PO TID [facility] Last Admin: 10/11/22 08:46 Dose: 300 mg Documented By: DEBBIE Hydromorphone HCl (Hydromorphone Hcl 2 Mg Tablet) 2 mg PO Q8H PRN PRN Reason: Pain, Severe (Pain Scale 7-10) Last Admin: 10/11/22 08:48 Dose: 2 mg Documented By: DEBBIE Cefepime HCl 2 gm/ Sodium (Chloride) 50 mls @ 100 mls/hr IV Q12H [facility] Last Infusion: 10/11/22 09:27 Dose: 0 mls/hr Documented By: DEBBIE Vancomycin HCl 1,000 mg/ (Sodium Chloride) 270 mls @ 270 mls/hr IV Q24H [facility] Last Infusion: 10/11/22 02:03 Dose: 0 mls/hr Documented By: JARON Sodium Chloride (Ns) 1,000 mls @ 999 mls/hr IV .Q1H1M [facility] Stop: 10/11/22 13:00 Last Admin: 10/11/22 11:57 Dose: 999 mls/hr Documented By: DEBBIE Levothyroxine Sodium (Levothyroxine Sodium 112 Mcg Tablet) 112 mcg PO DAILY@0600 [facility] Last Admin: 10/11/22 06:30 Dose: 112 mcg Documented By: JARON Midodrine (Midodrine Hcl 5 Mg Tablet) 5 mg PO TID [facility] Last Admin: 10/11/22 11:57 Dose: 5 mg Documented By: DEBBIE Multivitamins/Vitamin C (Multivitamin Tablet) 1 tab PO DAILY [facility] Last Admin: 10/11/22 08:46 Dose: 1 tab Documented By: DEBBIE Non-Formulary Medication (Budesonide) 3 mg PO DAILY [facility] Omeprazole (Omeprazole 20 Mg Capsule.Dr) 20 mg PO BID@0630,1630 [facility] Last Admin: 10/11/22 06:30 Dose: 20 mg Documented By: JARON Ondansetron HCl (Ondansetron Hcl 4 Mg/2 Ml Vial) 4 mg IVPUSH Q8H PRN PRN Reason: Nausea and Vomiting Last Admin: 10/07/22 17:12 Dose: 4 mg Documented By: NAVID Pharmacy Consult (Consult Rx Perform Med Rec) 1 each MISCELLANE ONCE PRN PRN Reason: Consult order Pharmacy Consult (Consult Rx Vancomycin Dosing) 1 each MISCELLANE DAILY PRN PRN Reason: Consult order Sodium Chloride (0.9 % Sodium Chloride Flush 3 Ml Syringe) 3 ml IVFLUSH QSHIFT [facility] Last Admin: 10/11/22 09:33 Dose: 3 ml Documented By: DEBBIE Vitamin D (Cholecalciferol (Vitamin D3) 25 Mcg Tablet) 25 mcg PO DAILY [facility] Last Admin: 10/11/22 08:46 Dose: 25 mcg Documented By: DEBBIE Labs 10/11/22 06:52 10/11/22 06:52 Labs: Laboratory Results - last 24 hr 10/10/22 10/11/22 10/11/22 21:31 06:52 06:52 MCV 94.2 MCH 30.4 MCHC 32.2 RDW 14.4 Plt Count 357 MPV 10.1 Absolute Nucleated RBC 0.000 Nucleated RBC % (auto) 0.0 Anion Gap Estim Creat Clear Calc 58.6 Estimated GFR 60 Random Glucose Calcium Random Vancomycin 16.9 Crossmatch 10/11/22 10/11/22 06:52 12:21 MCV MCH MCHC RDW Plt Count MPV Absolute Nucleated RBC Nucleated RBC % (auto) Anion Gap 16 Estim Creat Clear Calc 59.8 Estimated GFR > 60 Random Glucose 99 Calcium 8.8 Random Vancomycin Crossmatch See Detail Microbiology Microbiology Results: Microbiology 10/08/22 23:43 Blood Culture - Preliminary Blood - Venous No growth after 48 hours. 10/08/22 23:43 Blood Culture - Preliminary Blood - Venous No growth after 48 hours. Assessment and Plan (1) Symptomatic anemia: Status: Acute (2) Iron deficiency anemia: Status: Acute (3) Cellulitis: Status: Acute (4) Syncope: Status: Acute Plan A 77 years old lady with PMH of ILD on 2L, HTN, RLE wound Vac since Aug 2022 among others who presents to the hospital after an episode of dizziness and syncope. Symptomatic anemia having low BP and feels weak Iron deficiency anemia, acute on chronic likely related to chronic loss from VAC in open wound and chronic illness Iron studies showing low Iron, TIBC and sat Finished 3 days IV Iron supplement, PO on discharge To give a unit of blood and monitor response Cellulitis 2/2 chronic wound RLE Wound-VAC was removed by wound team until anemia improves, having greenish drainage Silver Alginate with daily dressing GRETEL wrap Negative bilateral US for DVT ID input appreciated Continue Vancomycin and Cefepime To follow with dr Garcia at [facility] follow trough Surgery to follow Syncope likely orthostatic hypotension, resolved keep on Tele Hold Losartan, Carvidelol stable orthostatic vitals PT recommends STR Hypotension 2/2 dehydration, infection, meds, Anemia Hold BP meds Give IVF bolus and transfuse a unit of blood treat infx w Abx PHysical deconditioning PT recommended SNF placement Hypomagnesemia recieved IV replacement Morbid obesity advised to lose weight Hypothyroid Levothyroixn ILD on 2L Continue inhalors, Budesonide and O2 supplement DVT PPx Lovenox Needs to stay for cellulitis, symptomatic anemia Time Spent With Patient Time: Total time managing care of this patient today ____ minutes. Quality Stroke Does the patient have a stroke diagnosis?: No VTE Prior VTE?: No VTE Risk Level:: Medical - moderate - high VTE Device Contraindication: Treatment Not Indicated VTE Drug Contraindication: N/A - Med Ordered
--- NOTE | 2022-10-11 13:24 | MHC.CM.PN ---
per rounds pt may have surgery dc plan tbd
--- NOTE | 2022-10-11 14:43 | PM.CNGS ---
History of Present Illness Consult details Consult date: 10/11/22 Narrative: 77-year-old female referred because of an open wound on the lower leg. She was actually admitted to the hospital for dizziness and hypotension last 10/07/2022. She also has had this on wound on the anterior aspect the right lower leg she had fallen about a month ago at home. She had had been admitted to [facility] at that time. She said that the wound had debrided and she eventually had a wound VAC placed. She was being seen by wound doctor in [facility]. However, she says that the wound VAC had been causing her a lot of pain. She was evaluated by the Wound Clinic here when she was admitted last week. The wound VAC was therefore removed periods she has had this silver alginate dressing since then. According to the , the seems to be working out better as she seems to be a lot more comfortable with this. She does continue to complain a lot of pain all over her body. She describes pain with even with just and of the right leg. She therefore has been bed ridden since she was admitted. Review of Systems Constitutional: Constitutional: Denies chills, Denies fever(s) and Reports weakness Cardiovascular: Cardiovascular: Denies chest pain Respiratory: Respiratory: Denies cough and Denies hemoptysis Gastrointestinal: Gastrointestinal: Denies abdominal pain Genitourinary: Genitourinary: Denies hematuria Musculoskeletal: Musculoskeletal: Reports back pain, Reports myalgias and Reports arthralgias Neurologic: Reports weakness PMFSH Past Medical History Medical History (Updated 10/11/22 @ 14:47 by Munir Reveles MD) HTN (hypertension) ILD (interstitial lung disease) Open wound Family History Family history: reviewed and not pertinent Social History Social History Household Members: Spouse Housing: House Do you presently have visiting nurse or other home services: Yes (VNA, PT, OT, [employer]) Alcohol intake: current Alcohol intake frequency: a few times a week Alcohol type: wine Patient Tobacco Use Status: Former Tobacco user Advance Directives Date on File: 10/07/22 service: No Meds Allergies Allergy/AdvReac Type Severity Reaction Status Date / Time acetaminophen [Vicodin] Allergy Unknown vomiting; Verified 10/25/18 00:00 dizziness hydrocodone [Vicodin] Allergy Unknown vomiting; Verified 10/25/18 00:00 dizziness morphine Allergy Unknown Confusion Verified 10/25/18 00:00 oxycodone [Percocet] Allergy Unknown Vomiting, Verified 10/25/18 00:00 fainting penicillin V Allergy Unknown Rash Verified 10/25/18 00:00 tetracycline Allergy Unknown Stomach Verified 10/25/18 00:00 upset tramadol [Ultram] Allergy Unknown Violent N Verified 10/25/18 00:00 & V codeine AdvReac Intermediate fainting Verified 10/13/22 08:32 Active Medications: Current Medications Albuterol Sulfate (Albuterol Sulfate 90 Mcg 8 Gm Inhaler) 2 puff INHALE Q6H PRN PRN Reason: Wheezing Atorvastatin Calcium (Atorvastatin Calcium 40 Mg Tablet) 40 mg PO BEDTIME [facility] Last Admin: 10/10/22 21:24 Dose: 40 mg Carvedilol (Carvedilol 12.5 Mg Tablet) 12.5 mg PO BID [facility]; Protocol Last Admin: 10/10/22 19:14 Dose: Not Given Dicyclomine HCl (Dicyclomine Hcl 10 Mg Capsule) 10 mg PO BID PRN PRN Reason: Spasms Docusate Sodium (Docusate Sodium 100 Mg Capsule) 100 mg PO BID PRN PRN Reason: Constipation Last Admin: 10/10/22 15:52 Dose: 100 mg Enoxaparin Sodium (Enoxaparin Sodium 40 Mg/0.4 Ml Syringe) 40 mg SUBCUT Q24H [facility] Last Admin: 10/10/22 15:52 Dose: 40 mg Escitalopram Oxalate (Escitalopram Oxalate 5 Mg Tablet) 5 mg PO DAILY [facility] Last Admin: 10/11/22 08:46 Dose: 5 mg Fluticasone Propionate (Fluticasone Propionate Nasal 16 Gm [place]) 1 spray NOSTRIL-B DAILY [facility] Last Admin: 10/11/22 09:33 Dose: Not Given Furosemide (Furosemide 20 Mg Tablet) 20 mg PO DAILY [facility]; Protocol Last Admin: 10/10/22 09:59 Dose: 20 mg Gabapentin (Gabapentin 300 Mg Capsule) 300 mg PO TID [facility] Last Admin: 10/11/22 08:46 Dose: 300 mg Hydromorphone HCl (Hydromorphone Hcl 2 Mg Tablet) 2 mg PO Q8H PRN PRN Reason: Pain, Severe (Pain Scale 7-10) Last Admin: 10/11/22 08:48 Dose: 2 mg Cefepime HCl 2 gm/ Sodium (Chloride) 50 mls @ 100 mls/hr IV Q12H [facility] Last Infusion: 10/11/22 09:27 Dose: Infused Vancomycin HCl 1,000 mg/ (Sodium Chloride) 270 mls @ 270 mls/hr IV Q24H [facility] Last Infusion: 10/11/22 02:03 Dose: Infused Levothyroxine Sodium (Levothyroxine Sodium 112 Mcg Tablet) 112 mcg PO DAILY@0600 [facility] Last Admin: 10/11/22 06:30 Dose: 112 mcg Midodrine (Midodrine Hcl 5 Mg Tablet) 5 mg PO TID [facility] Last Admin: 10/11/22 11:57 Dose: 5 mg Multivitamins/Vitamin C (Multivitamin Tablet) 1 tab PO DAILY [facility] Last Admin: 10/11/22 08:46 Dose: 1 tab Non-Formulary Medication (Budesonide) 3 mg PO DAILY [facility] Omeprazole (Omeprazole 20 Mg Capsule.Dr) 20 mg PO BID@0630,1630 [facility] Last Admin: 10/11/22 06:30 Dose: 20 mg Ondansetron HCl (Ondansetron Hcl 4 Mg/2 Ml Vial) 4 mg IVPUSH Q8H PRN PRN Reason: Nausea and Vomiting Last Admin: 10/07/22 17:12 Dose: 4 mg Pharmacy Consult (Consult Rx Perform Med Rec) 1 each MISCELLANE ONCE PRN PRN Reason: Consult order Pharmacy Consult (Consult Rx Vancomycin Dosing) 1 each MISCELLANE DAILY PRN PRN Reason: Consult order Sodium Chloride (0.9 % Sodium Chloride Flush 3 Ml Syringe) 3 ml IVFLUSH QSHIFT [facility] Last Admin: 10/11/22 09:33 Dose: 3 ml Vitamin D (Cholecalciferol (Vitamin D3) 25 Mcg Tablet) 25 mcg PO DAILY [facility] Last Admin: 10/11/22 08:46 Dose: 25 mcg Home Medications Medication Instructions Recorded Confirmed Last Taken Type acetaminophen 325 mg tablet 650 mg PO Q4H PRN Pain 10/07/22 10/07/22 Unknown History (Tylenol) albuterol sulfate 90 mcg/actuation 2 puff inhalation Q6H PRN Wheezing 10/07/22 10/07/22 Unknown History aerosol inhaler atorvastatin 40 mg tablet 40 mg PO BEDTIME 10/07/22 10/07/2210/06/23 History budesonide 3 mg 3 mg PO DAILY 10/07/22 10/07/22 10/07/22 History capsule,delayed,extended release carvedilol 12.5 mg tablet 12.5 mg PO BID 10/07/22 10/07/22 10/07/22 History cholecalciferol (vitamin D3) 25 25 mcg PO DAILY 10/07/22 10/07/22 10/07/22 History mcg (1,000 unit) tablet citalopram 10 mg tablet 10 mg PO DAILY 10/07/22 10/07/22 10/07/22 History dicyclomine 10 mg capsule 10 mg PO BID PRN Spasms 10/07/22 10/07/22 Unknown History fluticasone propionate 50 1 spray intranasal DAILY 10/07/22 10/07/22 10/07/22 History mcg/actuation nasal spray,suspension furosemide 20 mg tablet 20 mg PO DAILY 10/07/22 10/07/22 10/07/22 History gabapentin 300 mg capsule 300 mg PO TID 10/07/22 10/07/22 10/07/22 History multivitamin 1 tab PO DAILY 10/07/22 10/07/22 10/07/22 History zaleplon 5 mg capsule 5 mg PO BEDTIME PRN insomnia 10/07/22 10/07/22 Unknown History Physical Exam Vital Signs: Vital Signs: Last Vital Signs Temp 98.5 F 10/11/22 14:35 Pulse 87 10/11/22 14:35 Resp 18 10/11/22 14:35 BP 117/50 L 10/11/22 14:35 Pulse Ox 93 10/11/22 11:25 O2 Del Method Nasal Cannula 10/11/22 11:25 O2 Flow Rate 2 10/11/22 11:25 Oxygen Flow Rate 2 10/07/22 10:00 BMI result Body Mass Index 46.2 Const: Other: appears very frail complaints of pain all over General: no acute distress Resp: Effort & Inspection: normal respiratory effort Cardio: Rate: regular rate GI: Palpation (GI): Soft to palpation, not firm, nontender and no guarding Extrem: Other: right leg with an open wound all the way to the subcutaneous layer, about 9.5 x 10 cm in diameter, otherwise with healthy granulation, no redness edges, no necrotic areas, some areas of fibrinous debris Results Labs 10/11/22 06:52 10/11/22 06:52 Labs: Abnormal lab results 10/11/22 10/11/22 10/11/22 Range/Units 06:52 06:52 12:21 RBC 2.60 L (4.20-5.50) X10*6/uL Hgb 7.9 L (12.0-16.0) g/dl Hct 24.5 L (37.0-47.0) % BUN 18 H (9-16) mg/dL Crossmatch See Detail Short CBC 10/11/22 Range/Units 06:52 WBC 8.9 (4.8-10.8) X10*3/uL Hgb 7.9 L (12.0-16.0) g/dl Hct 24.5 L (37.0-47.0) % Plt Count 357 (160-400) X10*3/uL BMP 10/11/22 10/11/22 06:52 06:52 Sodium 135 Potassium 3.5 Chloride 97 Carbon Dioxide 26 BUN 18 H Creatinine 0.92 0.90 Calcium 8.8 Urine 10/07/22 Range/Units 13:41 Urine Color Yellow Urine Appearance Clear Urine pH 7.0 (5.0-9.0) Ur Specific [place] <= 1.005 (1.005-1.025) Urine Protein Negative (Neg-Trace) mg/dL Urine Glucose (UA) Negative (Negative) mg/dL All other labs normal. Assessment and Plan (1) Open wound: Status: Acute She has an open wound on the right lower leg after suffering a fall at home a month ago. She used to have a wound VAC but this had been removed. She currently has a silver alginate dressings. I would agree with this wound care for now. She seems to be more comfortable without the wound VAC. she will need a lot of intensive wound care however. She is already being followed by the Wound Clinic and I would be with their recommendations of using silver alginate at this time. Time Spent With Patient Time: Total time managing care of this patient today ____ minutes. Procedures Date of Service Date of Service: 11/11/22
--- NOTE | 2022-10-11 16:46 | PC.NURSE ---
Procedure note: Perineal hygiene performed and a #16fr Beck catheter inserted using sterile technique on 1 attempt. Immediate return of yellow urine noted. Patient tolerated the procedure well. Minor complaint of pain while positioning her for cath placement.
[2022-10-11] MEDS: Enoxaparin Sodium 40 MG/0.4 ML SYRINGE SUBCUT (16:58)
[2022-10-11] MEDS: Atorvastatin Calcium 40 MG TABLET PO (20:45)
[2022-10-11 21:47] LABS: Vancomycin Random 14.9 mcg/mL (15-20)
--- NOTE | 2022-10-11 21:58 | HE.PHANOTE ---
rebecca rosales continue current dose. next level is 10/13 @2100 dylan
[2022-10-12] VITALS (7 sets, daily range): BP systolic 109–149; BP diastolic 54–67; PULSE 75–93; RESP 17–20; TEMP 36.3–37.6; O2SAT 93–97
[2022-10-12] MEDS: vancomycin HCL 1,000 MG in 0.9 % Sodium Chloride 250 ML 270 MG IV ×2 (00:14→23:04)
[2022-10-12] MEDS: 0.9 % Sodium Chloride Flush 3 ML SYRINGE IVFLUSH (00:15)
[2022-10-12] MEDS: Omeprazole 20 MG CAPSULE.DR PO ×2 (05:44→15:35)
[2022-10-12] MEDS: HYDROmorphone HCl 2 MG TABLET PO ×2 (05:44→15:34)
[2022-10-12] MEDS: Levothyroxine Sodium 112 MCG TABLET PO (05:44)
[2022-10-12 06:45] LABS: Mean Corpuscular HGB Conc 33.3 g/dl (31.0-35.0); Mean Corpuscular Hemoglobin 30.9 pg (27.0-33.0); Mean Corpuscular Volume 92.8 fL (80.0-98.0); Mean Platelet Volume 9.6 fL (9.4-12.3); Platelet Count 399 X10*3/uL (160-400); Red Blood Count 2.91 X10*6/uL (4.20-5.50); Red Cell Distribution Width 14.6 % (11.0-16.0); White Blood Count 9.4 X10*3/uL (4.8-10.8)
[2022-10-12 07:11] LABS: Anion Gap 15 (12-20); Blood Urea Nitrogen 19 mg/dL (9-16); Calcium 8.8 mg/dL (8.4-10.2); Carbon Dioxide 24 mmol/L (22-29); Chloride 102 mmol/L (96-108); Creatinine Clr Calc Pharmacy 64.9; Estimated Glomerular Filt Rate > 60; Glucose Random 105 mg/dL (60-115); Potassium 3.5 mmol/L (3.3-5.1); Sodium 137 mmol/L (135-145)
[2022-10-12 07:16] LABS: Creatinine Clr Calc Pharmacy 63.4; Estimated Glomerular Filt Rate > 60
--- NOTE | 2022-10-12 07:26 | HE.PHANOTE ---
Vancomycin Dosing Addendum Patients renal function improved from 0.83 mg/dL from 0.9 mg/dL. Continue current dose of 1000 mg Q24H. Next level due 10/13 @2100. Predicted AUC 408 mg/L/hr.
[2022-10-12] MEDS: Midodrine HCl 5 MG TABLET PO (09:14)
[2022-10-12] MEDS: Multivitamin TABLET 1 TAB PO (09:14)
[2022-10-12] MEDS: Escitalopram Oxalate 5 MG TABLET PO (09:14)
[2022-10-12] MEDS: Gabapentin 300 MG CAPSULE PO (09:14)
[2022-10-12] MEDS: cefEPime HCl 2 GM in 0.9 % Sodium Chloride 50 ML IV ×2 (09:14→20:47)
[2022-10-12] MEDS: Cholecalciferol (Vitamin D3) 25 MCG TABLET PO (09:14)
[2022-10-12] MEDS: Furosemide 40 MG/4 ML VIAL IVPUSH (09:54)
[2022-10-12] MEDS: Lactulose 20 GM/30 ML SOLUTION PO ×2 (09:54→20:09)
[2022-10-12] MEDS: Nystatin Powder 15 GM BOTTLE 1 APPL TOPICAL ×2 (09:54→20:18)
--- NOTE | 2022-10-12 13:57 | P.PNIM_ITS ---
Subjective Subjective Date of Service: 10/12/22 Interval History: Feels weak and low energy BP running soft Hb improved to 9 after 1 unit transfusion Lower Ex swelling No other overnight events Review of Systems No fever, chills or weakness No chest pain, palpitation No shortness of breath or coughing No abdominal pain, nausea or vomiting No urinary symptoms No any rash or wounds Physical Exam Vital Signs: Vital Signs: Last Vital Signs Temp 97.4 F 10/12/22 11:10 Pulse 77 10/12/22 11:10 Resp 18 10/12/22 11:10 BP 130/60 10/12/22 11:10 Pulse Ox 97 10/12/22 11:10 O2 Del Method Room Air 10/12/22 11:10 O2 Flow Rate 2 10/12/22 11:10 Oxygen Flow Rate 2 10/07/22 10:00 BMI result Body Mass Index 46.2 Const: Other: Constitutional : Awake, interactive, morbidly obese, not in distress Neck : Normal inspection, Supple Cardiovascular : RRR, no JVP, +2 lower extremity edema Respiratory : good bilateral air entry, no crackles, wheezes or rhonchi Gastrointestinal: soft, lax, Normal bowel sounds, Non tender Skin : Warm, Dry, RLE wound cover with dressing, mild surrounding erythema with tenderness Neurological : Alert & oriented x3, No focal deficit Objective Data Active Medications Albuterol Sulfate (Albuterol Sulfate 90 Mcg 8 Gm Inhaler) 2 puff INHALE Q6H PRN PRN Reason: Wheezing Atorvastatin Calcium (Atorvastatin Calcium 40 Mg Tablet) 40 mg PO BEDTIME [facility] Last Admin: 10/11/22 20:45 Dose: 40 mg Documented By: DEBBIE Carvedilol (Carvedilol 12.5 Mg Tablet) 12.5 mg PO BID [facility]; Protocol Last Admin: 10/10/22 19:14 Dose: Not Given Documented By: JARON Non-Admin Reason: Physician Held Med Dicyclomine HCl (Dicyclomine Hcl 10 Mg Capsule) 10 mg PO BID PRN PRN Reason: Spasms Docusate Sodium (Docusate Sodium 100 Mg Capsule) 100 mg PO BID PRN PRN Reason: Constipation Last Admin: 10/10/22 15:52 Dose: 100 mg Documented By: WADE Enoxaparin Sodium (Enoxaparin Sodium 40 Mg/0.4 Ml Syringe) 40 mg SUBCUT Q24H [facility] Last Admin: 10/11/22 16:58 Dose: 40 mg Documented By: DEBBIE Escitalopram Oxalate (Escitalopram Oxalate 5 Mg Tablet) 5 mg PO DAILY [facility] Last Admin: 10/12/22 09:14 Dose: 5 mg Documented By: GUILLERMO Fluticasone Propionate (Fluticasone Propionate Nasal 16 Gm [place]) 1 spray NOSTRIL-B DAILY [facility] Last Admin: 10/12/22 09:24 Dose: Not Given Documented By: GUILLERMO Non-Admin Reason: Patient Refused Furosemide (Furosemide 20 Mg Tablet) 20 mg PO DAILY [facility]; Protocol Last Admin: 10/10/22 09:59 Dose: 20 mg Documented By: WADE Gabapentin (Gabapentin 100 Mg Capsule) 100 mg PO BEDTIME [facility] Hydromorphone HCl (Hydromorphone Hcl 2 Mg Tablet) 2 mg PO Q8H PRN PRN Reason: Pain, Severe (Pain Scale 7-10) Last Admin: 10/12/22 05:44 Dose: 2 mg Documented By: MARQUISE Cefepime HCl 2 gm/ Sodium (Chloride) 50 mls @ 100 mls/hr IV Q12H [facility] Last Infusion: 10/12/22 09:46 Dose: 0 mls/hr Documented By: GUILLERMO Vancomycin HCl 1,000 mg/ (Sodium Chloride) 270 mls @ 270 mls/hr IV Q24H [facility] Last Infusion: 10/12/22 01:23 Dose: 0 mls/hr Documented By: MARQUISE Lactulose (Lactulose 20 Gm/30 Ml Solution) 20 gm PO BID [facility] Last Admin: 10/12/22 09:54 Dose: 20 gm Documented By: GUILLERMO Levothyroxine Sodium (Levothyroxine Sodium 112 Mcg Tablet) 112 mcg PO DAILY@0600 [facility] Last Admin: 10/12/22 05:44 Dose: 112 mcg Documented By: MARQUISE Midodrine (Midodrine Hcl 2.5 Mg Tablet) 2.5 mg PO TID [facility] Multivitamins/Vitamin C (Multivitamin Tablet) 1 tab PO DAILY [facility] Last Admin: 10/12/22 09:14 Dose: 1 tab Documented By: GUILLERMO Non-Formulary Medication (Budesonide) 3 mg PO DAILY [facility] Nystatin (Nystatin Powder 15 Gm Bottle) 1 appl TOPICAL BID [facility]; Protocol Last Admin: 10/12/22 09:54 Dose: 1 appl Documented By: GUILLERMO Omeprazole (Omeprazole 20 Mg Capsule.) 20 mg PO BID@0630,1630 [facility] Last Admin: 10/12/22 05:44 Dose: 20 mg Documented By: MARQUISE Ondansetron HCl (Ondansetron Hcl 4 Mg/2 Ml Vial) 4 mg IVPUSH Q8H PRN PRN Reason: Nausea and Vomiting Last Admin: 10/07/22 17:12 Dose: 4 mg Documented By: NAVID Pharmacy Consult (Consult Rx Perform Med Rec) 1 each MISCELLANE ONCE PRN PRN Reason: Consult order Pharmacy Consult (Consult Rx Vancomycin Dosing) 1 each MISCELLANE DAILY PRN PRN Reason: Consult order Sodium Chloride (0.9 % Sodium Chloride Flush 3 Ml Syringe) 3 ml IVFLUSH QSHIFT [facility] Last Admin: 10/12/22 13:18 Dose: Not Given Documented By: GUILLERMO Non-Admin Reason: See Note Vitamin D (Cholecalciferol (Vitamin D3) 25 Mcg Tablet) 25 mcg PO DAILY [facility] Last Admin: 10/12/22 09:14 Dose: 25 mcg Documented By: GUILLERMO Labs 10/12/22 06:22 10/12/22 06:22 Labs: Laboratory Results - last 24 hr 10/11/22 10/11/22 10/12/22 12:21 21:03 06:22 MCV MCH MCHC RDW Plt Count MPV Absolute Nucleated RBC Nucleated RBC % (auto) Anion Gap Estim Creat Clear Calc 63.4 Estimated GFR > 60 Random Glucose Calcium Random Vancomycin 14.9 L Blood Type O Positive Antibody Screen NEGATIVE Crossmatch See Detail 10/12/22 10/12/22 06:22 06:22 MCV 92.8 MCH 30.9 MCHC 33.3 RDW 14.6 Plt Count 399 MPV 9.6 Absolute Nucleated RBC 0.000 Nucleated RBC % (auto) 0.0 Anion Gap 15 Estim Creat Clear Calc 64.9 Estimated GFR > 60 Random Glucose 105 Calcium 8.8 Random Vancomycin Blood Type Antibody Screen Crossmatch Microbiology Microbiology Results: Microbiology 10/11/22 16:30 Gram Stain - Final Tibia Right - Wound Routine Culture - Preliminary Culture in progress. Assessment and Plan (1) Open wound: Status: Acute (2) Symptomatic anemia: Status: Acute (3) Iron deficiency anemia: Status: Acute (4) Cellulitis: Status: Acute (5) Non-pressure chronic ulcer of other part of right lower leg with unspecified severity: Status: Acute (6) Hypomagnesemia: Status: Acute (7) Syncope: Status: Acute Plan A 77 years old lady with PMH of ILD on 2L, HTN, RLE wound Vac since Aug 2022 among others who presents to the hospital after an episode of dizziness and syncope. Symptomatic anemia Iron deficiency anemia, acute on chronic likely related to chronic loss from VAC in open wound and chronic illness Iron studies showing low Iron, TIBC and sat Finished 3 days IV Iron supplement, PO on discharge received a unit of blood and monitor response Cellulitis 2/2 chronic wound RLE Wound-VAC was removed by wound team until anemia improves, having greenish drainage Silver Alginate with daily dressing ID input appreciated, Continue Vancomycin and Cefepime to cover pseudomonas To follow with dr Garcia at [facility] follow trough Surgery input appreciated, local measures LE edema 2/2 IVF, low albumin GRETEL wrap IV lasix US negative for DVT Syncope likely orthostatic hypotension, resolved keep on Tele Hold Losartan, Carvidelol stable orthostatic vitals PT recommends STR Hypotension 2/2 dehydration, infection, meds, Anemia improved w IVF and PRCBs PHysical deconditioning PT recommended SNF placement Constipation Hypomagnesemia recieved IV replacement Morbid obesity advised to lose weight Hypothyroid Levothyroixn ILD on 2L Continue inhalors, Budesonide and O2 supplement DVT PPx Lovenox Needs to stay for cellulitis, symptomatic anemia, pending safe discahrge plan Time Spent With Patient Time: Total time managing care of this patient today ____ minutes. Quality Stroke Does the patient have a stroke diagnosis?: No VTE Prior VTE?: No VTE Risk Level:: Medical - moderate - high VTE Device Contraindication: Treatment Not Indicated VTE Drug Contraindication: N/A - Med Ordered
[2022-10-12] MEDS: Enoxaparin Sodium 40 MG/0.4 ML SYRINGE SUBCUT (15:34)
--- NOTE | 2022-10-12 15:42 | PM.PNGS ---
Subjective Subjective Date of Service: 10/12/22 Interval history: No new events Has pain ?all over? Physical Exam Vital Signs: Vital Signs: Last Vital Signs Temp 98.2 F 10/12/22 15:10 Pulse 84 10/12/22 15:10 Resp 17 10/12/22 15:10 BP 149/65 H 10/12/22 15:10 Pulse Ox 96 10/12/22 15:10 O2 Del Method Nasal Cannula 10/12/22 15:10 O2 Flow Rate 2 10/12/22 11:10 Oxygen Flow Rate 2 10/07/22 10:00 BMI result Body Mass Index 46.2 Const: Other: Appears uncomfortable Resp: Effort & Inspection: normal respiratory effort Cardio: Rate: regular rate Extrem: Other: Open wound on the anterior leg on the right actually clean, with good granulation, no necrotic tissue Objective Data Active Medications Albuterol Sulfate (Albuterol Sulfate 90 Mcg 8 Gm Inhaler) 2 puff INHALE Q6H PRN PRN Reason: Wheezing Atorvastatin Calcium (Atorvastatin Calcium 40 Mg Tablet) 40 mg PO BEDTIME [facility] Last Admin: 10/11/22 20:45 Dose: 40 mg Documented By: DEBBIE Carvedilol (Carvedilol 12.5 Mg Tablet) 12.5 mg PO BID [facility]; Protocol Last Admin: 10/10/22 19:14 Dose: Not Given Documented By: JARON Non-Admin Reason: Physician Held Med Dicyclomine HCl (Dicyclomine Hcl 10 Mg Capsule) 10 mg PO BID PRN PRN Reason: Spasms Docusate Sodium (Docusate Sodium 100 Mg Capsule) 100 mg PO BID PRN PRN Reason: Constipation Last Admin: 10/10/22 15:52 Dose: 100 mg Documented By: TODDARTCharley Enoxaparin Sodium (Enoxaparin Sodium 40 Mg/0.4 Ml Syringe) 40 mg SUBCUT Q24H [facility] Last Admin: 10/12/22 15:34 Dose: 40 mg Documented By: DION-MAYRA Escitalopram Oxalate (Escitalopram Oxalate 5 Mg Tablet) 5 mg PO DAILY [facility] Last Admin: 10/12/22 09:14 Dose: 5 mg Documented By: DION-SOFFA Fluticasone Propionate (Fluticasone Propionate Nasal 16 Gm [place]) 1 spray NOSTRIL-B DAILY [facility] Last Admin: 10/12/22 09:24 Dose: Not Given Documented By: GUILLERMO Non-Admin Reason: Patient Refused Furosemide (Furosemide 20 Mg Tablet) 20 mg PO DAILY [facility]; Protocol Last Admin: 10/10/22 09:59 Dose: 20 mg Documented By: WADE Gabapentin (Gabapentin 100 Mg Capsule) 100 mg PO BEDTIME [facility] Hydromorphone HCl (Hydromorphone Hcl 2 Mg Tablet) 2 mg PO Q8H PRN PRN Reason: Pain, Severe (Pain Scale 7-10) Last Admin: 10/12/22 15:34 Dose: 2 mg Documented By: GUILLERMO Cefepime HCl 2 gm/ Sodium (Chloride) 50 mls @ 100 mls/hr IV Q12H [facility] Last Infusion: 10/12/22 09:46 Dose: 0 mls/hr Documented By: GUILLERMO Vancomycin HCl 1,000 mg/ (Sodium Chloride) 270 mls @ 270 mls/hr IV Q24H [facility] Last Infusion: 10/12/22 01:23 Dose: 0 mls/hr Documented By: MARQUISE Lactulose (Lactulose 20 Gm/30 Ml Solution) 20 gm PO BID [facility] Last Admin: 10/12/22 09:54 Dose: 20 gm Documented By: GUILLERMO Levothyroxine Sodium (Levothyroxine Sodium 112 Mcg Tablet) 112 mcg PO DAILY@0600 [facility] Last Admin: 10/12/22 05:44 Dose: 112 mcg Documented By: MARQUISE Midodrine (Midodrine Hcl 2.5 Mg Tablet) 2.5 mg PO TID [facility] Last Admin: 10/12/22 15:38 Dose: Not Given Documented By: GUILLERMO Non-Admin Reason: bp elevated Multivitamins/Vitamin C (Multivitamin Tablet) 1 tab PO DAILY [facility] Last Admin: 10/12/22 09:14 Dose: 1 tab Documented By: GUILLERMO Non-Formulary Medication (Budesonide) 3 mg PO DAILY [facility] Nystatin (Nystatin Powder 15 Gm Bottle) 1 appl TOPICAL BID [facility]; Protocol Last Admin: 10/12/22 09:54 Dose: 1 appl Documented By: GUILLERMO Omeprazole (Omeprazole 20 Mg [place].) 20 mg PO BID@0630,1630 [facility] Last Admin: 10/12/22 15:35 Dose: 20 mg Documented By: GUILLERMO Ondansetron HCl (Ondansetron Hcl 4 Mg/2 Ml Vial) 4 mg IVPUSH Q8H PRN PRN Reason: Nausea and Vomiting Last Admin: 10/07/22 17:12 Dose: 4 mg Documented By: NAVID Pharmacy Consult (Consult Rx Perform Med Rec) 1 each MISCELLANE ONCE PRN PRN Reason: Consult order Pharmacy Consult (Consult Rx Vancomycin Dosing) 1 each MISCELLANE DAILY PRN PRN Reason: Consult order Sodium Chloride (0.9 % Sodium Chloride Flush 3 Ml Syringe) 3 ml IVFLUSH QSHIFT [facility] Last Admin: 10/12/22 13:18 Dose: Not Given Documented By: GUILLERMO Non-Admin Reason: See Note Vitamin D (Cholecalciferol (Vitamin D3) 25 Mcg Tablet) 25 mcg PO DAILY [facility] Last Admin: 10/12/22 09:14 Dose: 25 mcg Documented By: GUILLERMO Labs 10/12/22 06:22 10/12/22 06:22 Labs: Laboratory Results - last 24 hr 10/11/22 10/12/22 10/12/22 21:03 06:22 06:22 MCV 92.8 MCH 30.9 MCHC 33.3 RDW 14.6 Plt Count 399 MPV 9.6 Absolute Nucleated RBC 0.000 Nucleated RBC % (auto) 0.0 Anion Gap Estim Creat Clear Calc 63.4 Estimated GFR > 60 Random Glucose Calcium Random Vancomycin 14.9 L 10/12/22 06:22 MCV MCH MCHC RDW Plt Count MPV Absolute Nucleated RBC Nucleated RBC % (auto) Anion Gap 15 Estim Creat Clear Calc 64.9 Estimated GFR > 60 Random Glucose 105 Calcium 8.8 Random Vancomycin Microbiology Microbiology Results: Microbiology 10/11/22 16:30 Gram Stain - Final Tibia Right - Wound Routine Culture - Preliminary Culture in progress. Procedures Date of Service Date of Service: 10/12/22 Progress Note: A&P Assessment and plan (1) Open wound: Status: Acute Assessment and Plan: Wound looks clean healthy granulation tissue Silver alginate dressings reapplied Continue good wound care Leg elevation because of edema Time Spent With Patient Time: Total time managing care of this patient today ____ minutes. Quality Stroke Does the patient have a stroke diagnosis?: No VTE Prior VTE?: No VTE Risk Level:: Medical - moderate - high VTE Device Contraindication: Treatment Not Indicated VTE Drug Contraindication: N/A - Med Ordered
[2022-10-12] MEDS: Atorvastatin Calcium 40 MG TABLET PO (20:08)
[2022-10-12] MEDS: carvediloL 12.5 MG TABLET PO (20:08)
[2022-10-12] MEDS: Midodrine HCl 2.5 MG TABLET PO (20:08)
[2022-10-12] MEDS: Gabapentin 100 MG CAPSULE PO (20:08)
[2022-10-13 03:47] VITALS: BP 113/56; PULSE 80; RESP 18; TEMP 37.2; O2SAT 92
[2022-10-13] MEDS: Omeprazole 20 MG CAPSULE.DR PO (05:51)
[2022-10-13] MEDS: Levothyroxine Sodium 112 MCG TABLET PO (05:51)
[2022-10-13 06:26] LABS: Hematocrit 28.6 % (37.0-47.0); Hemoglobin 9.2 g/dl (12.0-16.0); Mean Corpuscular HGB Conc 32.2 g/dl (31.0-35.0); Mean Corpuscular Volume 93.2 fL (80.0-98.0); Mean Platelet Volume 9.4 fL (9.4-12.3); Platelet Count 454 X10*3/uL (160-400); Red Blood Count 3.07 X10*6/uL (4.20-5.50); Red Cell Distribution Width 14.6 % (11.0-16.0); White Blood Count 10.3 X10*3/uL (4.8-10.8)
[2022-10-13 06:35] LABS: Anion Gap 13 (12-20); Blood Urea Nitrogen 20 mg/dL (9-16); Calcium 9.2 mg/dL (8.4-10.2); Carbon Dioxide 27 mmol/L (22-29); Chloride 102 mmol/L (96-108); Creatinine Clr Calc Pharmacy 63.4; Estimated Glomerular Filt Rate > 60; Glucose Random 113 mg/dL (60-115); Potassium 3.2 mmol/L (3.3-5.1); Sodium 139 mmol/L (135-145)
[2022-10-13 06:37] LABS: Magnesium 1.5 mg/dL (1.6-2.6)
[2022-10-13 07:42] VITALS: BP 115/58; PULSE 74; RESP 17; TEMP 36.9; O2SAT 95
[2022-10-13] MEDS: 0.9 % Sodium Chloride Flush 3 ML SYRINGE IVFLUSH ×2 (08:09→13:58)
[2022-10-13] MEDS: carvediloL 12.5 MG TABLET PO ×2 (08:09→21:49)
[2022-10-13] MEDS: Cholecalciferol (Vitamin D3) 25 MCG TABLET PO (08:09)
[2022-10-13] MEDS: Midodrine HCl 2.5 MG TABLET PO ×3 (08:09→21:49)
[2022-10-13] MEDS: Multivitamin TABLET 1 TAB PO (08:10)
[2022-10-13] MEDS: Escitalopram Oxalate 5 MG TABLET PO (08:10)
[2022-10-13] MEDS: Lactulose 20 GM/30 ML SOLUTION PO (08:10)
[2022-10-13] MEDS: cefEPime HCl 2 GM in 0.9 % Sodium Chloride 50 ML IV (08:11)
[2022-10-13] MEDS: Nystatin Powder 15 GM BOTTLE 1 APPL TOPICAL ×2 (08:12→21:53)
[2022-10-13] MEDS: HYDROmorphone HCl 2 MG TABLET PO (08:29)
--- NOTE | 2022-10-13 11:46 | P.PNIM_ITS ---
Subjective Subjective Date of Service: 10/13/22 Interval History: weakness Physical Exam Vital Signs: Vital Signs: Last Vital Signs Temp 98.5 F 10/13/22 07:42 Pulse 74 10/13/22 07:42 Resp 17 10/13/22 07:42 BP 115/58 L 10/13/22 07:42 Pulse Ox 95 10/13/22 07:42 O2 Del Method Nasal Cannula 10/13/22 07:42 O2 Flow Rate 2 10/13/22 07:42 Oxygen Flow Rate 2 10/07/22 10:00 BMI result Body Mass Index 46.2 ill appearing, frail, anasarca, RLE wound, diminshed air entry Objective Data Active Medications Albuterol Sulfate (Albuterol Sulfate 90 Mcg 8 Gm Inhaler) 2 puff INHALE Q6H PRN PRN Reason: Wheezing Atorvastatin Calcium (Atorvastatin Calcium 40 Mg Tablet) 40 mg PO BEDTIME [facility] Last Admin: 10/12/22 20:08 Dose: 40 mg Documented By: BRENTON Carvedilol (Carvedilol 12.5 Mg Tablet) 12.5 mg PO BID [facility]; Protocol Last Admin: 10/13/22 08:09 Dose: 12.5 mg Documented By: NAVNEET Dicyclomine HCl (Dicyclomine Hcl 10 Mg Capsule) 10 mg PO BID PRN PRN Reason: Spasms Docusate Sodium (Docusate Sodium 100 Mg Capsule) 100 mg PO BID PRN PRN Reason: Constipation Last Admin: 10/10/22 15:52 Dose: 100 mg Documented By: WADE Enoxaparin Sodium (Enoxaparin Sodium 40 Mg/0.4 Ml Syringe) 40 mg SUBCUT Q24H [facility] Last Admin: 10/12/22 15:34 Dose: 40 mg Documented By: GUILLERMO Escitalopram Oxalate (Escitalopram Oxalate 5 Mg Tablet) 5 mg PO DAILY [facility] Last Admin: 10/13/22 08:10 Dose: 5 mg Documented By: NAVNEET Fluticasone Propionate (Fluticasone Propionate Nasal 16 Gm [place]) 1 spray NOSTRIL-B DAILY [facility] Last Admin: 10/13/22 10:12 Dose: Not Given Documented By: NAVNEET Non-Admin Reason: Patient Refused Furosemide (Furosemide 20 Mg Tablet) 20 mg PO DAILY [facility]; Protocol Last Admin: 10/10/22 09:59 Dose: 20 mg Documented By: WADE Gabapentin (Gabapentin 100 Mg Capsule) 100 mg PO BEDTIME [facility] Last Admin: 10/12/22 20:08 Dose: 100 mg Documented By: BRENTON Hydromorphone HCl (Hydromorphone Hcl 2 Mg Tablet) 2 mg PO Q8H PRN PRN Reason: Pain, Severe (Pain Scale 7-10) Last Admin: 10/13/22 08:29 Dose: 2 mg Documented By: NAVNEET Cefepime HCl 2 gm/ Sodium (Chloride) 50 mls @ 100 mls/hr IV Q12H [facility] Last Infusion: 10/13/22 10:25 Dose: 0 mls/hr Documented By: NAVNEET Vancomycin HCl 1,000 mg/ (Sodium Chloride) 270 mls @ 270 mls/hr IV Q24H [facility] Last Infusion: 10/13/22 00:20 Dose: 0 mls/hr Documented By: DIANELYS Lactulose (Lactulose 20 Gm/30 Ml Solution) 20 gm PO BID [facility] Last Admin: 10/13/22 08:10 Dose: 20 gm Documented By: NAVNEET Levothyroxine Sodium (Levothyroxine Sodium 125 Mcg Tablet) 125 mcg PO DAILY@0600 [facility] Magnesium Oxide (Magnesium Oxide 400 Mg Tablet) 400 mg PO BIDPC [facility] Midodrine (Midodrine Hcl 2.5 Mg Tablet) 2.5 mg PO TID [facility] Last Admin: 10/13/22 08:09 Dose: 2.5 mg Documented By: NAVNEET Multivitamins/Vitamin C (Multivitamin Tablet) 1 tab PO DAILY [facility] Last Admin: 10/13/22 08:10 Dose: 1 tab Documented By: NAVNEET Non-Formulary Medication (Budesonide) 3 mg PO DAILY [facility] Nystatin (Nystatin Powder 15 Gm Bottle) 1 appl TOPICAL BID [facility]; Protocol Last Admin: 10/13/22 08:12 Dose: 1 appl Documented By: NAVNEET Omeprazole (Omeprazole 20 Mg Capsule.Dr) 20 mg PO BID@0630,1630 [facility] Last Admin: 10/13/22 05:51 Dose: 20 mg Documented By: DIANELYS Ondansetron HCl (Ondansetron Hcl 4 Mg/2 Ml Vial) 4 mg IVPUSH Q8H PRN PRN Reason: Nausea and Vomiting Last Admin: 10/07/22 17:12 Dose: 4 mg Documented By: NAVID Pharmacy Consult (Consult Rx Perform Med Rec) 1 each MISCELLANE ONCE PRN PRN Reason: Consult order Pharmacy Consult (Consult Rx Vancomycin Dosing) 1 each MISCELLANE DAILY PRN PRN Reason: Consult order Sodium Chloride (0.9 % Sodium Chloride Flush 3 Ml Syringe) 3 ml IVFLUSH QSHIFT [facility] Last Admin: 10/13/22 08:09 Dose: 3 ml Documented By: NAVNEET Vitamin D (Cholecalciferol (Vitamin D3) 25 Mcg Tablet) 25 mcg PO DAILY [facility] Last Admin: 10/13/22 08:09 Dose: 25 mcg Documented By: NAVNEET Labs 10/13/22 05:48 10/13/22 05:48 Labs: Laboratory Results - last 24 hr 10/13/22 10/13/22 10/13/22 05:48 05:48 05:48 MCV 93.2 MCH 30.0 MCHC 32.2 RDW 14.6 Plt Count 454 H MPV 9.4 Absolute Nucleated RBC 0.000 Nucleated RBC % (auto) 0.0 Anion Gap 13 Estim Creat Clear Calc Cancelled 63.4 Estimated GFR Cancelled > 60 Random Glucose 113 Calcium 9.2 Magnesium 1.5 L Microbiology Microbiology Results: Microbiology 10/11/22 16:30 Gram Stain - Final Tibia Right - Wound Routine Culture - Preliminary Staphylococcus aureus Gram negative kwame Assessment and Plan (1) Open wound: Status: Acute (2) Symptomatic anemia: Status: Acute (3) Iron deficiency anemia: Status: Acute (4) Cellulitis: Status: Acute (5) Non-pressure chronic ulcer of other part of right lower leg with unspecified severity: Status: Acute (6) Hypomagnesemia: Status: Acute (7) Syncope: Status: Acute Plan 77F with PMH of chronic hypoxic respiratory failure due to smoking related ILD and copd on 2L home o2, HTN, RLE wound Vac since Aug 2022, hypothryoid, morbid obesity, HTN, chronic diastolic chf, presented with syncope syncope due to orthostatic hypotension holding losartan and coreg, started midodrine bps still on low side, no further events severe hypomagnesemia replace, monitor, hold ppi hypokalemia replace and monitor anasarca due to 3rd spacing from chronic inflammation, decreased total protein will given albumin and iv lasix to try to shift fluids ensure Symptomatic anemia Iron deficiency anemia, acute on chronic likely related to chronic loss from VAC in open wound and chronic illness Iron studies showing low Iron, TIBC and sat Finished 3 days IV Iron supplement, PO on discharge received a unit of blood Cellulitis 2/2 chronic wound RLE Wound-VAC was removed by wound team until anemia improves, having greenish drain age Silver Alginate with daily dressing ID input appreciated, Continue Vancomycin and Cefepime to cover pseudomonas To follow with dr Garcia at [facility] follow trough Surgery input appreciated, local measures Physical deconditioning PT recommended SNF placement Constipation lactulose prn Morbid obesity advised to lose weight Hypothyroid elevated tsh, will increase synthroid to 125mcg from 112mcg, repeat in 4 weeks chronic hypoxic respiratory failure due to copd and ILD on 2L Continue inhalors, Budesonide and O2 supplement DVT PPx Lovenox full code reason for continued hospitalization:iv abx Time Spent With Patient Time: Total time managing care of this patient today ____ minutes. Quality Stroke Does the patient have a stroke diagnosis?: No VTE Prior VTE?: No VTE Risk Level:: Medical - moderate - high VTE Device Contraindication: Treatment Not Indicated VTE Drug Contraindication: N/A - Med Ordered
[2022-10-13 12:00] VITALS: BP 108/75; PULSE 87; RESP 18; TEMP 36.7; O2SAT 97
--- NOTE | 2022-10-13 12:19 | MHC.CM.PN ---
Patient is not yet medically cleared for dc (IV ABT); STR is the recommendation and Patient wants to go home. CM will follow.
[2022-10-13] MEDS: Potassium Chloride ER 20 MEQ TAB.ER.PRT 40 MEQ PO (12:31)
[2022-10-13] MEDS: Albumin Human 25 % 100 ML IV ×2 (12:32→17:56)
[2022-10-13 15:04] VITALS: BP 134/60; PULSE 78; RESP 20; TEMP 36.6; O2SAT 95
[2022-10-13] MEDS: Enoxaparin Sodium 40 MG/0.4 ML SYRINGE SUBCUT (15:59)
[2022-10-13] MEDS: Magnesium Oxide 400 MG TABLET PO (17:55)
[2022-10-13] MEDS: Furosemide 40 MG/4 ML VIAL IVPUSH (17:55)
[2022-10-13 20:00] VITALS: BP 134/63; PULSE 85; RESP 18; TEMP 36.8; O2SAT 97
[2022-10-13] MEDS: Doxycycline Monohydrate 100 MG CAPSULE PO (21:49)
[2022-10-13] MEDS: Gabapentin 100 MG CAPSULE PO (21:49)
[2022-10-13] MEDS: Atorvastatin Calcium 40 MG TABLET PO (21:49)
--- NOTE | 2022-10-13 22:07 | PC.NURSE ---
Confusion , expressive aphasia , generalized weakness , right arm weaker than left . Patient alert to self only this evening , unable to state the year she was borne, having difficulties find words , repeats one word four or five times . Patient's stated that she is in this confused stage in and out for few days but today her confusion is worse. Neuro : alert to name only , pupils TUNDE juan antonio , no facial droop, difficulty finding words , repeats one word few times, swallowing intact. Right hand very weak grasp , left hand weak grasp. Unable to lift up right arm , juan antonio lower extremity weak . Patient is a 1:1 feed , this was reported from 7a to 3 p RN . Per pt's report , pt had hx of juan antonio shoulders surgery and hx of right dislocated shoulder. Dr. Albert was notified re: altered mental status ,expressive aphasia , right arm weakness , CTSCAN of the brain was ordered and done . No acute hemorrhage ,no acute infarct was detected on the scan
[2022-10-14] VITALS (8 sets, daily range): BP systolic 126–168; BP diastolic 58–76; PULSE 72–88; RESP 16–20; TEMP 36.1–37.7; O2SAT 94–98
[2022-10-14] MEDS: Albumin Human 25 % 100 ML IV ×2 (00:40→05:52)
[2022-10-14] MEDS: 0.9 % Sodium Chloride Flush 3 ML SYRINGE IVFLUSH ×4 (00:48→21:10)
[2022-10-14] MEDS: Levothyroxine Sodium 125 MCG TABLET PO (05:52)
[2022-10-14 06:16] LABS: Hematocrit 26.4 % (37.0-47.0); Hemoglobin 8.7 g/dl (12.0-16.0); Mean Corpuscular Hemoglobin 30.5 pg (27.0-33.0); Mean Corpuscular Volume 92.6 fL (80.0-98.0); Platelet Count 388 X10*3/uL (160-400); Red Blood Count 2.85 X10*6/uL (4.20-5.50); Red Cell Distribution Width 14.1 % (11.0-16.0); White Blood Count 8.7 X10*3/uL (4.8-10.8)
[2022-10-14 06:30] LABS: Alanine Aminotransferase 8 U/L (0-31); Albumin Level 3.3 g/dL (3.5-5.0); Alkaline Phosphatase 63 U/L (39-117); Anion Gap 15 (12-20); Aspartate Amino Transferase 14 U/L (5-31); Bilirubin Direct 0.2 mg/dL (0.0-0.5); Bilirubin Total 0.5 mg/dL (0.0-1.0); Blood Urea Nitrogen 18 mg/dL (9-16); Calcium 9.6 mg/dL (8.4-10.2); Carbon Dioxide 26 mmol/L (22-29); Chloride 101 mmol/L (96-108); Creatinine Clr Calc Pharmacy 58.6; Estimated Glomerular Filt Rate 60; Glucose Fasting 111 mg/dL (60-99); Magnesium 1.5 mg/dL (1.6-2.6); Potassium 3.2 mmol/L (3.3-5.1); Sodium 139 mmol/L (135-145); Total Protein 5.4 g/dL (6.5-8.0)
[2022-10-14] MEDS: Doxycycline Monohydrate 100 MG CAPSULE PO ×2 (08:17→21:11)
[2022-10-14] MEDS: carvediloL 12.5 MG TABLET PO ×2 (08:18→21:11)
[2022-10-14] MEDS: Escitalopram Oxalate 5 MG TABLET PO (08:18)
[2022-10-14] MEDS: HYDROmorphone HCl 2 MG TABLET PO ×2 (08:18→21:10)
[2022-10-14] MEDS: Midodrine HCl 2.5 MG TABLET PO ×2 (08:18→14:50)
[2022-10-14] MEDS: Cholecalciferol (Vitamin D3) 25 MCG TABLET PO (08:19)
[2022-10-14] MEDS: Potassium Chloride ER 20 MEQ TAB.ER.PRT 40 MEQ PO (08:19)
[2022-10-14] MEDS: Magnesium Oxide 400 MG TABLET PO ×2 (08:19→16:21)
[2022-10-14] MEDS: Furosemide 40 MG/4 ML VIAL IVPUSH (08:19)
[2022-10-14] MEDS: Nystatin Powder 15 GM BOTTLE 1 APPL TOPICAL ×2 (09:30→21:15)
[2022-10-14] MEDS: Multivitamin TABLET 1 TAB PO (09:30)
--- NOTE | 2022-10-14 09:37 | P.PNIM_ITS ---
Subjective Subjective Date of Service: 10/14/22 Interval History: weakness, delerious overnight, resolved Physical Exam Vital Signs: Vital Signs: Last Vital Signs Temp 96.9 F 10/14/22 07:22 Pulse 78 10/14/22 07:22 Resp 16 10/14/22 07:22 BP 133/63 10/14/22 07:22 Pulse Ox 95 10/14/22 07:22 O2 Del Method Nasal Cannula 10/14/22 07:22 O2 Flow Rate 2 10/14/22 07:22 Oxygen Flow Rate 2 10/07/22 10:00 BMI result Body Mass Index 46.2 ill appearing, improving anasarca Objective Data Active Medications Albuterol Sulfate (Albuterol Sulfate 90 Mcg 8 Gm Inhaler) 2 puff INHALE Q6H PRN PRN Reason: Wheezing Atorvastatin Calcium (Atorvastatin Calcium 40 Mg Tablet) 40 mg PO BEDTIME [facility] Last Admin: 10/13/22 21:49 Dose: 40 mg Documented By: BEULAH Carvedilol (Carvedilol 12.5 Mg Tablet) 12.5 mg PO BID [facility]; Protocol Last Admin: 10/14/22 08:18 Dose: 12.5 mg Documented By: CECE Dicyclomine HCl (Dicyclomine Hcl 10 Mg Capsule) 10 mg PO BID PRN PRN Reason: Spasms Docusate Sodium (Docusate Sodium 100 Mg Capsule) 100 mg PO BID PRN PRN Reason: Constipation Last Admin: 10/10/22 15:52 Dose: 100 mg Documented By: WADE Doxycycline Monohydrate (Doxycycline Monohydrate 100 Mg Capsule) 100 mg PO Q12H [facility] Last Admin: 10/14/22 08:17 Dose: 100 mg Documented By: CECE Enoxaparin Sodium (Enoxaparin Sodium 40 Mg/0.4 Ml Syringe) 40 mg SUBCUT Q24H [facility] Last Admin: 10/13/22 15:59 Dose: 40 mg Documented By: BEULAH Escitalopram Oxalate (Escitalopram Oxalate 5 Mg Tablet) 5 mg PO DAILY [facility] Last Admin: 10/14/22 08:18 Dose: 5 mg Documented By: CECE Fluticasone Propionate (Fluticasone Propionate Nasal 16 Gm Maxbass) 1 spray NOSTRIL-B DAILY [facility] Last Admin: 10/13/22 10:12 Dose: Not Given Documented By: NAVNEET Non-Admin Reason: Patient Refused Furosemide (Furosemide 20 Mg Tablet) 20 mg PO DAILY [facility]; Protocol Last Admin: 10/10/22 09:59 Dose: 20 mg Documented By: WADE Gabapentin (Gabapentin 100 Mg Capsule) 100 mg PO BEDTIME [facility] Last Admin: 10/13/22 21:49 Dose: 100 mg Documented By: BEULAH Hydromorphone HCl (Hydromorphone Hcl 2 Mg Tablet) 2 mg PO Q8H PRN PRN Reason: Pain, Severe (Pain Scale 7-10) Last Admin: 10/14/22 08:18 Dose: 2 mg Documented By: CECE Lactulose (Lactulose 20 Gm/30 Ml Solution) 20 gm PO BID PRN PRN Reason: constipation Levothyroxine Sodium (Levothyroxine Sodium 125 Mcg Tablet) 125 mcg PO DAILY@0600 [facility] Last Admin: 10/14/22 05:52 Dose: 125 mcg Documented By: JASON Magnesium Oxide (Magnesium Oxide 400 Mg Tablet) 400 mg PO BIDPC [facility] Last Admin: 10/14/22 08:19 Dose: 400 mg Documented By: CECE Midodrine (Midodrine Hcl 2.5 Mg Tablet) 2.5 mg PO TID [facility] Last Admin: 10/14/22 08:18 Dose: 2.5 mg Documented By: CECE Multivitamins/Vitamin C (Multivitamin Tablet) 1 tab PO DAILY [facility] Last Admin: 10/13/22 08:10 Dose: 1 tab Documented By: NAVNEET Non-Formulary Medication (Budesonide) 3 mg PO DAILY [facility] Nystatin (Nystatin Powder 15 Gm Bottle) 1 appl TOPICAL BID [facility]; Protocol Last Admin: 10/13/22 21:53 Dose: 1 appl Documented By: BEULAH Omeprazole (Omeprazole 20 Mg Capsule.) 20 mg PO BID@0630,1630 [facility] Last Admin: 10/13/22 05:51 Dose: 20 mg Documented By: DIANELYS Ondansetron HCl (Ondansetron Hcl 4 Mg/2 Ml Vial) 4 mg IVPUSH Q8H PRN PRN Reason: Nausea and Vomiting Last Admin: 10/07/22 17:12 Dose: 4 mg Documented By: NAVID Pharmacy Consult (Consult Rx Perform Med Rec) 1 each MISCELLANE ONCE PRN PRN Reason: Consult order Sodium Chloride (0.9 % Sodium Chloride Flush 3 Ml Syringe) 3 ml IVFLUSH QSHIFT [facility] Last Admin: 10/14/22 08:19 Dose: 3 ml Documented By: CECE Vitamin D (Cholecalciferol (Vitamin D3) 25 Mcg Tablet) 25 mcg PO DAILY [facility] Last Admin: 10/14/22 08:19 Dose: 25 mcg Documented By: CECE Labs 10/14/22 06:02 10/14/22 06:02 Labs: Laboratory Results - last 24 hr 10/14/22 10/14/22 06:02 06:02 MCV 92.6 MCH 30.5 MCHC 33.0 RDW 14.1 Plt Count 388 MPV 9.0 L Absolute Nucleated RBC 0.000 Nucleated RBC % (auto) 0.0 Anion Gap 15 Estim Creat Clear Calc 58.6 Estimated GFR 60 Fasting Glucose 111 H Calcium 9.6 Magnesium 1.5 L Total Bilirubin 0.5 Direct Bilirubin 0.2 AST 14 ALT 8 Alkaline Phosphatase 63 Total Protein 5.4 L Albumin 3.3 L Microbiology Microbiology Results: Microbiology 10/11/22 16:30 Gram Stain - Final Tibia Right - Wound Routine Culture - Final Staphylococcus aureus Pseudomonas aeruginosa 10/08/22 23:43 Blood Culture - Final Blood - Venous No growth after 5 days. 10/08/22 23:43 Blood Culture - Final Blood - Venous No growth after 5 days. Assessment and Plan (1) Open wound: Status: Acute (2) Symptomatic anemia: Status: Acute (3) Iron deficiency anemia: Status: Acute (4) Cellulitis: Status: Acute (5) Non-pressure chronic ulcer of other part of right lower leg with unspecified severity: Status: Acute (6) Hypomagnesemia: Status: Acute (7) Syncope: Status: Acute Plan 77F with PMH of chronic hypoxic respiratory failure due to smoking related ILD and copd on 2L home o2, HTN, RLE wound Vac since Aug 2022, hypothryoid, morbid obesity, HTN, chronic diastolic chf, presented with syncope syncope due to orthostatic hypotension holding losartan and coreg, started midodrine bps still on low side, no further events severe hypomagnesemia replace, hold ppi hypokalemia replace and monitor anasarca due to 3rd spacing from chronic inflammation, decreased total protein given albumin and iv lasix - much improved ensure Symptomatic anemia Iron deficiency anemia, acute on chronic likely related to chronic loss from VAC in open wound and chronic illness Iron studies showing low Iron, TIBC and sat Finished 3 days IV Iron supplement, PO on discharge received a unit of blood Cellulitis 2/2 chronic wound RLE Wound-VAC was removed by wound team until anemia improves, having greenish drainage Silver Alginate with daily dressing ID input appreciated - changed to [email or web address] To follow with dr Garcia at [facility] Surgery input appreciated, local measures Physical deconditioning PT recommended SNF placement Constipation lactulose prn Morbid obesity advised to lose weight Hypothyroid elevated tsh, increased synthroid to 125mcg from 112mcg, repeat in 4 weeks chronic hypoxic respiratory failure due to copd and ILD on 2L Continue inhalors, Budesonide and O2 supplement DVT PPx Lovenox full code reason for continued hospitalization:palcement Time Spent With Patient Time: Total time managing care of this patient today ____ minutes. Quality Stroke Does the patient have a stroke diagnosis?: No VTE Prior VTE?: No VTE Risk Level:: Medical - moderate - high VTE Device Contraindication: Treatment Not Indicated VTE Drug Contraindication: N/A - Med Ordered
--- NOTE | 2022-10-14 14:03 | MHC.CM.PN ---
Patient is medically cleared for dc to STR/SNF today. Patient was accepted at 5 SNFs and after consideration, Patient and her chose [facility]. CM met with Patient and her at bedside and addressed IMM with them (original was given to them and a copy has been placed on the chart). Patient/ has chosen to appeal the dc and CM has informed MD and CM/Management. CM will follow.
[2022-10-14] MEDS: Enoxaparin Sodium 40 MG/0.4 ML SYRINGE SUBCUT (16:21)
[2022-10-14] MEDS: Gabapentin 100 MG CAPSULE PO (21:11)
[2022-10-14] MEDS: Atorvastatin Calcium 40 MG TABLET PO (21:11)
[2022-10-15 03:20] VITALS: BP 141/65; PULSE 83; RESP 20; TEMP 37.3; O2SAT 97
[2022-10-15] MEDS: Levothyroxine Sodium 125 MCG TABLET PO (05:17)
[2022-10-15 06:05] LABS: Hematocrit 28.9 % (37.0-47.0); Hemoglobin 9.3 g/dl (12.0-16.0); Mean Corpuscular HGB Conc 32.2 g/dl (31.0-35.0); Mean Corpuscular Hemoglobin 30.3 pg (27.0-33.0); Mean Corpuscular Volume 94.1 fL (80.0-98.0); Mean Platelet Volume 9.3 fL (9.4-12.3); Platelet Count 443 X10*3/uL (160-400); Red Blood Count 3.07 X10*6/uL (4.20-5.50); Red Cell Distribution Width 13.9 % (11.0-16.0); White Blood Count 10.1 X10*3/uL (4.8-10.8)
[2022-10-15 06:30] LABS: Anion Gap 16 (12-20); Blood Urea Nitrogen 17 mg/dL (9-16); Calcium 10.2 mg/dL (8.4-10.2); Carbon Dioxide 28 mmol/L (22-29); Chloride 99 mmol/L (96-108); Creatinine Clr Calc Pharmacy 63.4; Estimated Glomerular Filt Rate > 60; Glucose Fasting 104 mg/dL (60-99); Magnesium 1.5 mg/dL (1.6-2.6); Potassium 3.5 mmol/L (3.3-5.1); Sodium 139 mmol/L (135-145)
[2022-10-15 07:45] VITALS: BP 135/65; PULSE 78
[2022-10-15 08:00] VITALS: BP 135/65; PULSE 79; RESP 16; TEMP 36.9; O2SAT 96
--- NOTE | 2022-10-15 10:24 | MHC.CM.PN ---
Patient/ have lost the appeal;CM spoke with them and Patient will dc to [facility] today at 2PM, via [facility]. IMM addressed yesterday.
--- NOTE | 2022-10-15 10:34 | P.DS_ITS ---
DS: Providers Provider Date of Service: 10/15/22 Date of admission: 10/07/22 16:02 Primary care physician: Etelvina Veloz NP Consults: 10/07/22 16:52 Consult to Wound Care Routine Consulting Provider: Margareth Gambino Reason for consultation: Wound VAC management 10/08/22 22:33 Consult to Infectious Diseases [place]ine [place] [facility] [place] Reason for consultation: Wound infection Has provider been notified: No 10/11/22 07:48 Consult to General Surgery Routine Consulting Provider[place] [facility] Reason for consultation: RLE open wound w drainage for your kind eval. DS: Diagnosis Discharge Diagnosis (1) Open wound: Status: Acute (2) Symptomatic anemia: Status: Acute (3) Iron deficiency anemia: Status: Acute (4) Cellulitis: Status: Acute (5) Non-pressure chronic ulcer of other part of right lower leg with unspecified severity: Status: Acute (6) Hypomagnesemia: Status: Acute (7) Syncope: Status: Acute DS: Summary Hospital Course Hospital Course: from initial hpi: Chief Complaint: Dizziness, syncope A 77 years old lady with PMH of ILD on 2L, HTN, RLE wound Vac since Aug 2022 among others who presents to the hospital after an episode of dizziness and syncope. The patient report that htis is the thrird time she is getting such a dizziness episode. she took her morning meds and was sitting feeling unwell but when she tried to get up she felt dizzy and unsteady on her feet. when EMS got home she had another episode and lost her conscious for 10 sec per EMS. found hypotensive, pale, diaphoric. denies any chest pain, palpitations, headache, nausea, vomiting, diarrhea, change in bowel habit or urinary symptoms. She has RLE wound vac since Aug for fall related injury. Admitted for observation overnight? hospital course: Patient was admitted for syncope due to orthostatic hypotension. Losartan was held and patient was started midodrine, no further events while in hospital. Patient noted to have severe hypomagnesemia see Lillian her PPI was held and this was replaced. For hypokalemia this was replaced. For her anasarca this is due to 3rd spacing from chronic inflammation due to recent fall and wound she was given albumin and IV Lasix with much improvement. She was started on Ensure. For symptomatic anemia this was a mix of iron deficiency acute on chronic, and inflammatory as above. She had received 1 unit PRBC. She also received IV iron. For her chronic right lower extremity wound she receives silver alginate dressing daily and broad-spectrum antibiotics initially for superimposed cellulitis. She will be discharged on 7 more days of p.o. doxycycline. For morbid obesity weight loss recommended. For hypothyroid her Synthroid was increased from 112-125 and TSH should be repeated in 4 weeks. For chronic hypoxic respiratory failure due to COPD and interstitial lung disease on 2 L home O2 she remained stable. She will continue inhalers, budesonide O2 supplement. Course was complicated by a brief hospital related delirium which resolved by time of discharge. Course also complicated by urinary retention requiring Beck catheter, trial avoid will be performed. Patient is much improved will be discharged to assisted facility for short-term rehab. Time Spent with Patient Time attestation: Total time managing care of this patient today ____ minutes. Discharge coordination time: Greater than 30 minutes Quality: Safe Use of Opioids Does Pt have an Active Cancer Diagnosis on the Problem List?: No Quality: Stroke Does the patient have a stroke diagnosis?: No Physical Exam Vital Signs: Vital Signs: Last Vital Signs Temp 98.4 F 10/15/22 08:00 Pulse 79 10/15/22 08:00 Resp 16 10/15/22 08:00 BP 135/65 10/15/22 08:00 Pulse Ox 96 10/15/22 08:00 O2 Del Method Nasal Cannula 10/15/22 08:00 O2 Flow Rate 2 10/15/22 08:00 Oxygen Flow Rate 2 10/07/22 10:00 BMI result Body Mass Index 46.2 improving anasarca DS: Data Data Completed and Pending Labs on day of discharge: Laboratory Results - last 24 hr 10/15/22 10/15/22 05:38 05:38 WBC 10.1 RBC 3.07 L Hgb 9.3 L Hct 28.9 L MCV 94.1 MCH 30.3 MCHC 32.2 RDW 13.9 Plt Count 443 H MPV 9.3 L Absolute Nucleated RBC 0.000 Nucleated RBC % (auto) 0.0 Sodium 139 Potassium 3.5 Chloride 99 Carbon Dioxide 28 Anion Gap 16 BUN 17 H Creatinine 0.85 Estim Creat Clear Calc 63.4 Estimated GFR > 60 Fasting Glucose 104 H Calcium 10.2 D Magnesium 1.5 L Discharge Plan Discharge Anticipated Discharge Date/Time: 10/15/22 10:30 Patient Disposition: Xfer SNF Discharge Diagnosis: anasarca, chronic wound Referrals: [facility] [Outside] - 1 Week Etelvina Veloz NP [Primary Care Provider] - 1 Week Discharge Medications: New hydromorphone 2 mg Tablet 2 mg PO Q8H PRN (Reason: Pain, Severe (Pain Scale 7-10)) Qty: 15 0RF Rx Instructions: Partial Fill upon patient request. magnesium oxide 400 mg (241.3 mg magnesium) Tablet 400 mg PO BIDPC Qty: 0 0RF doxycycline monohydrate 100 mg Capsule 100 mg PO Q12H 7 Days Qty: 0 0RF midodrine 2.5 mg Tablet 2.5 mg PO TID Qty: 0 0RF Continued atorvastatin 40 mg tablet 40 mg PO BEDTIME carvedilol 12.5 mg tablet 12.5 mg PO BID citalopram 10 mg tablet 10 mg PO DAILY gabapentin 300 mg capsule 300 mg PO TID omeprazole 20 mg capsule,delayed release(DR/EC) 20 mg PO BID@0630,1630 furosemide 20 mg tablet 20 mg PO DAILY zaleplon 5 mg capsule 5 mg PO BEDTIME PRN (Reason: insomnia) budesonide 3 mg capsule,delayed,extend.release 3 mg PO DAILY levothyroxine 112 mcg tablet 112 mcg PO DAILY@0600 multivitamin Tablet 1 tab PO DAILY acetaminophen [Tylenol] 325 mg Tablet 650 mg PO Q4H PRN (Reason: Pain) albuterol sulfate 90 mcg/actuation HFA aerosol inhaler 2 puff inhalation Q6H PRN (Reason: Wheezing) fluticasone propionate 50 mcg/actuation [place],Suspension 1 spray INTRANASAL DAILY Rx Instructions: administer into each nostril dicyclomine 10 mg Capsule 10 mg PO BID PRN (Reason: Spasms) cholecalciferol (vitamin D3) 25 mcg (1,000 unit) Tablet 25 mcg PO DAILY Discontinued losartan 50 mg tablet 50 mg PO DAILY Discharge Orders: Discharge Order (Routine); Ordered 10/15/22 Ordered By: Avel Antony Diet: Advance to usual diet Activity on Discharge: As tolerated Stand Alone Forms: Patient Portal Discharge page Care Plan Goals: recovery Health Concerns: hypotension, anasarca, chronic inflammation Plan of Treatment: PT, hold losartan, midodrine for low bps, 7 more days of doxy Assessment: see above
[2022-10-15] MEDS: Cholecalciferol (Vitamin D3) 25 MCG TABLET PO (10:40)
[2022-10-15] MEDS: Magnesium Oxide 400 MG TABLET PO (10:40)
[2022-10-15] MEDS: 0.9 % Sodium Chloride Flush 3 ML SYRINGE IVFLUSH (10:40)
[2022-10-15] MEDS: carvediloL 12.5 MG TABLET PO (10:41)
[2022-10-15] MEDS: Escitalopram Oxalate 5 MG TABLET PO (10:41)
[2022-10-15] MEDS: Multivitamin TABLET 1 TAB PO (10:41)
[2022-10-15] MEDS: Midodrine HCl 2.5 MG TABLET PO (10:41)
[2022-10-15] MEDS: Doxycycline Monohydrate 100 MG CAPSULE PO (10:50)
[2022-10-15] MEDS: Nystatin Powder 15 GM BOTTLE 1 APPL TOPICAL (10:51)
[2022-10-15 11:10] VITALS: BP 135/65; PULSE 79; O2SAT 96
[2022-10-15 11:21] VITALS: BP 132/67; PULSE 77; RESP 20; TEMP 37; O2SAT 94
[2022-10-15 12:30] LABS: COVID-19 Test Negative (Negative); IDNOW Serial# 9DB6401D
== END 2022-10-15 14:53 | disposition skilled nursing facility (03) | DRG 603 ==
LOC: HO.ED 13:36 → HO.EDOVER 15:19 → HO.IMC 17:06
PROVIDERS: Internal Medicine; Physician Assistant; Admitting Provider Student in an Organized Health Care Education/Training Program; Emergency Provider Student in an Organized Health Care Education/Training Program; PCP Nurse Practitioner Family; Visit Provider Internal Medicine
DX: L03.115 Cellulitis of right lower limb (principal); F05 Delirium due to known physiological condition; J96.11 Chronic respiratory failure with hypoxia; L97.819 Non-pressure chronic ulcer of other part of right lower leg with unspecified severity; Z68.42 Body mass index [BMI] 45.0-49.9, adult; J98.2 Interstitial emphysema; I95.1 Orthostatic hypotension; E66.01 Morbid (severe) obesity due to excess calories; E03.9 Hypothyroidism, unspecified; I10 Essential (primary) hypertension; K59.00 Constipation, unspecified; D63.8 Anemia in other chronic diseases classified elsewhere; R33.9 Retention of urine, unspecified; E83.42 Hypomagnesemia; D50.0 Iron deficiency anemia secondary to blood loss (chronic); Z20.822 Contact with and (suspected) exposure to COVID-19; Z91.81 History of falling; Z71.3 Dietary counseling and surveillance; Z99.81 Dependence on supplemental oxygen; Z88.0 Allergy status to penicillin; Z88.1 Allergy status to other antibiotic agents; Z88.5 Allergy status to narcotic agent; Z88.6 Allergy status to analgesic agent; Z79.51 Long term (current) use of inhaled steroids; Z79.890 Hormone replacement therapy; Z79.899 Other long term (current) drug therapy
CPT/HCPCS: 36415; 70450; 80048; 80076; 80202; 81003; 82272; 82565; 83540; 83605; 83735; 83880; 84439; 84443; 84484; 85025; 85027; 86850; 86900; 86901; 86923; 87040; 87070; 87077; 87186; 87205; 87635; 93005; 93970; 93971; 97110; 97162; 99285; C1758; J0690; J0692; J1170; J1650; J1756; J1940; J2405; J3370; J3371; J3475; P9016; P9047

== ENCOUNTER 2024-03-01 09:03 | Outpatient (AMB) | payer MEDICARE, SELFPAY ==
--- NOTE | 2024-03-01 09:07 | AM.OFFWIN_ITS ---
Intake Vital Signs 3 03/01/24 09:09 Height 5 ft Weight 199 lb BMI 38.9 BP 114/82 Blood Pressure Location Rt brachial Position Sitting Pulse 68 Pulse Source Pulse Oximeter Temp 97.8 F Temp Source Oral Pulse Oximetry (%) 96 Oxygen Delivery Method Nasal Cannula Intake Visit Reasons: [employer]- Infected cyst on chest Intake Note: pt c/o cyst on chest. ? infection. Cyst has been there a long time. Started getting inflamed a few days ago Patient Tobacco Use Status: Former Tobacco user Allergies acetaminophen [Vicodin] Allergy (Unknown, Verified 03/01/24 09:08) vomiting; dizziness hydrocodone [Vicodin] Allergy (Unknown, Verified 03/01/24 09:08) vomiting; dizziness morphine Allergy (Unknown, Verified 03/01/24 09:08) Confusion oxycodone [Percocet] Allergy (Unknown, Verified 03/01/24 09:08) Vomiting, fainting penicillin V Allergy (Unknown, Verified 03/01/24 09:08) Rash tetracycline Allergy (Unknown, Verified 03/01/24 09:08) Stomach upset tramadol [Ultram] Allergy (Unknown, Verified 03/01/24 09:08) Violent N & V codeine Adverse Reaction (Intermediate, Verified 03/01/24 09:08) fainting Do you need a note to return to daycare/school/sports/work: No HPI HPI Comments 2 History of Present Illness0 Details 78 y/o female patient who presents to [facility] clinic with c/o cyst on the chest region for couple of days. Denies any drainage. Denies pain, fevers or chills. [facility] Medical History (Updated 10/11/22 @ 14:47 by Munir Reveles MD) Open wound ILD (interstitial lung disease) HTN (hypertension) Social History Household Members: Spouse Housing: House Do you presently have visiting nurse or other home services: Yes (VNA, PT, OT, [employer]) Alcohol intake: current Alcohol intake frequency: a few times a week Alcohol type: wine Patient Tobacco Use Status: Former Tobacco user Advance Directives Date on File: 10/07/22 service: No Review of Systems Const All systems reviewed & are unremarkable except as noted in HPI and below Physical Exam Vital Signs: Last Vital Signs Temp 97.8 F 03/01/24 09:09 Pulse 68 03/01/24 09:09 BP 114/82 03/01/24 09:09 Pulse Ox 96 03/01/24 09:09 Oxygen Delivery Method Nasal Cannula 03/01/24 09:09 BMI result Body Mass Index 38.9 Const General: comfortable and no acute distress Orientation/consciousness: patient oriented x3 Limitations: ambulation with walker Skin Other: Small round cyst with erythema on the midline chest. General skin exam: dry skin and erythema Full body images: 2 1. Small cyst with erythema. Tenderness to touch. No drainage. Neuro General: patient oriented x3, gait normal and moves all extremities Psych Speech and movement: Normal speech and movement present Assessment & Plan Assessment & Plan (1) Epidermoid cyst of skin of chest: Code(s): L72.0 - Epidermal cyst Plan: Advised Applying warm compress directly to the region to facilitate drainage Topical Abx BID Medications: New 2 mupirocin 2% 1 appl topical BID 15 grams 0RF L72.0 - Epidermal cyst Coding Level of Care Code New Pt Level 3 (50359) Diagnoses Epidermoid cyst of skin of chest L72.0 Time Spent (min) 15
[2024-03-01 09:09] VITALS: BP 114/82; PULSE 68; TEMP 36.6; O2SAT 96; BMI 38.9
== END 2024-03-01 09:47 | disposition home or self-care (01) ==
PROVIDERS: PCP Nurse Practitioner Family; Visit Provider Nurse Practitioner Family
DX: L72.0 Epidermal cyst (principal)
CPT/HCPCS: 99203

== ENCOUNTER 2024-12-29 17:45 | Emergency (ER) | payer MEDICARE, SELFPAY ==
--- NOTE | ~2024-12-29 | CT_ITS ---
CLINICAL HISTORY: trauma CT head without contrast Comparison: None Findings: There is no acute intracranial hemorrhage. Ventricles are within normal limits in size. No mass effect or midline shift is present. The ro-white matter differentiation appears normal. There is mild generalized cerebral atrophy. There are prominent perivascular spaces in the left lower basal ganglia. No fractures are identified. IMPRESSION: No acute intracranial abnormality. This document has been electronically signed by: Allan Kincaid MD on 12/29/2024 22:16:31
--- NOTE | ~2024-12-29 | XR_ITS ---
CLINICAL HISTORY: trauma 4 view left knee Comparison: None Findings: Left total knee arthroplasty changes. No acute fracture. Normal alignment. No knee joint effusion. No foreign body. IMPRESSION: 1. No acute findings. This document has been electronically signed by: Sunil Matamoros MD on 12/29/2024 20:36:15
--- NOTE | ~2024-12-29 | CT_ITS ---
CLINICAL HISTORY: trauma CT maxillofacial without contrast Comparison: None Findings: Portions of the lower face are obscured by artifact from dental restorations. There is no evidence of a fracture. There is no hematoma. Globes appear intact. There is minimal mucous in the left maxillary sinus. Paranasal sinuses are otherwise clear. Mastoids are clear. Temporomandibular joints are normally aligned. There is cerumen in the external auditory canals. IMPRESSION: No acute findings. This document has been electronically signed by: Allan Kincaid MD on 12/29/2024 22:15:56
--- NOTE | ~2024-12-29 | CT_ITS ---
CLINICAL HISTORY: trauma CT cervical spine without contrast Comparison: None Findings: There is degenerative anterolisthesis of C3 on C4, C4 on C5, and C7 on T1 due to facet osteoarthritis. There is no fracture. There is multilevel facet and uncovertebral joint osteoarthritis with associated neuroforaminal stenoses. IMPRESSION: No evidence of cervical spine injury. This document has been electronically signed by: Allan Kincaid MD on 12/29/2024 22:12:11
[2024-12-29 17:54] VITALS: BP 132/51; PULSE 76; O2SAT 97
[2024-12-29 17:58] VITALS: BP 174/73; PULSE 71; RESP 18; TEMP 36.6; O2SAT 98; BMI 40.6
--- NOTE | 2024-12-29 19:02 | ECG_ITS ---
Test Reason : WEAKNESS Blood Pressure : */* mmHG Vent. Rate : 67 BPM Atrial Rate : 67 BPM P-R Int : 126 ms QRS Dur : 90 ms QT Int : 428 ms P-R-T Axes : 58 23 54 degrees QTcB Int : 452 ms Normal sinus rhythm Normal ECG When compared with ECG of 11-Oct-2022 09:24, No significant change was found Referred By: Carroll Barragan Electronically Signed By: MIHIR MCDONALD MD
[2024-12-29 19:24] LABS: MANUAL DIFF FLAG NO
[2024-12-29 19:33] LABS: Basophils Absolute Auto 0.1 X10*3/uL (0.0-0.2); Basophils Percent Auto 0.4 % (0-2); Eosinophils Absolute Auto 0.1 X10*3/uL (0.0-0.4); Eosinophils Percent Auto 0.8 % (0-4); Hematocrit 37.2 % (37.0-47.0); Hemoglobin 12.2 g/dl (12.0-16.0); Imm Gran Abs Auto 0.06 X10*3/uL (0.00-0.03); Imm Gran Pct Auto 0.5 % (0.0-0.4); Lymphocytes Absolute Auto 1.3 X10*3/uL (1.2-4.9); Mean Corpuscular HGB Conc 32.8 g/dl (31.0-35.0); Mean Corpuscular Hemoglobin 32.3 pg (27.0-33.0); Mean Corpuscular Volume 98.4 fL (80.0-98.0); Mean Platelet Volume 10.4 fL (9.4-12.3); Monocytes Absolute Auto 0.8 X10*3/uL (0.1-1.2); Monocytes Percent Auto 6.5 % (2-11); Neutrophils Absolute Auto 9.7 x10*3/uL (2.0-8.3); Neutrophils Percent Auto 80.8 % (45-73); Platelet Count 283 X10*3/uL (160-400); Red Blood Count 3.78 X10*6/uL (4.20-5.50); Red Cell Distribution Width 13.3 % (11.0-16.0)
[2024-12-29 19:40] LABS: Alanine Aminotransferase 21 U/L (0-31); Albumin Level 3.9 g/dL (3.5-5.0); Alkaline Phosphatase 64 U/L (39-117); Anion Gap 13 (12-20); Aspartate Amino Transferase 24 U/L (5-31); Bilirubin Total 0.4 mg/dL (0.0-1.0); Blood Urea Nitrogen 16 mg/dL (9-16); Calcium 10.3 mg/dL (8.4-10.2); Carbon Dioxide 31 mmol/L (22-29); Chloride 103 mmol/L (96-108); Creatinine Clr Calc Pharmacy 54.9; Estimated Glomerular Filt Rate > 60; Glucose Random 110 mg/dL (60-115); Potassium 3.8 mmol/L (3.3-5.1); Sodium 143 mmol/L (135-145); Total Protein 6.7 g/dL (6.5-8.0)
[2024-12-29 19:47] LABS: Troponin-I High Sensitivity 9.2 ng/L (<3.5-17.0)
[2024-12-29 20:53] VITALS: RESP 18
--- NOTE | 2024-12-29 21:05 | PC.NURSE ---
Spoke to Cristian castrejon, will change order. for lidocaine.
--- NOTE | 2024-12-29 21:06 | PC.NURSE ---
report to ANITHA Hall.
[2024-12-29] MEDS: Lidocaine HCl 1%/Epi 1:100,000 10 ML VIAL INFILTRATI (21:07)
--- NOTE | 2024-12-29 21:20 | PC.NURSE ---
assumed care of patient at this time. Pa and student at bedside
--- NOTE | 2024-12-29 22:22 | ED.GENADULT ---
HPI - General Adult General Chief complaint: Fall Stated complaint: fall, L elbow/knee pain Time Seen by Provider: 12/29/24 18:05 Source: patient, RN notes reviewed and old records reviewed Mode of arrival: EMS Limitations: no limitations History of Present Illness ED Provider: Laurel HPI narrative: 79-year-old female presents for evaluation after a fall. She wears chronic oxygen for a history of COPD Sit she tripped over her oxygen tubing and fell onto the ground. She has a very small abrasion to the right lateral orbit, a large laceration to the left knee and a left elbow skin tear. She reports that she hit her head on a wooden bedside table She did not lose consciousness Denies any anticoagulation She reports mild discomfort She does have a history of a left knee prosthesis Related Data Home Medications ?Medication ?Instructions ?Recorded ?Confirmed albuterol sulfate 90 mcg/actuation 2 puff inhalation Q6H PRN Wheezing 10/07/22 10/07/22 aerosol inhaler atorvastatin 40 mg tablet 40 mg PO BEDTIME 10/07/22 10/07/22 budesonide 3 mg 3 mg PO DAILY 10/07/22 10/07/22 capsule,delayed,extended release carvedilol 12.5 mg tablet 12.5 mg PO BID 10/07/22 10/07/22 cholecalciferol (vitamin D3) 25 25 mcg PO DAILY 10/07/22 10/07/22 mcg (1,000 unit) tablet citalopram 10 mg tablet 10 mg PO DAILY 10/07/22 10/07/22 dicyclomine 10 mg capsule 10 mg PO BID PRN Spasms 10/07/22 10/07/22 fluticasone propionate 50 1 spray intranasal DAILY 10/07/22 10/07/22 mcg/actuation nasal spray,suspension gabapentin 300 mg capsule 300 mg PO TID 10/07/22 10/07/22 multivitamin 1 tab PO DAILY 10/07/22 10/07/22 zaleplon 5 mg capsule 5 mg PO BEDTIME PRN insomnia 10/07/22 10/07/22 acetaminophen 325 mg tablet 650 mg PO BID Pain 03/01/24 (Tylenol) furosemide 20 mg tablet 20 mg PO Q OTHER DAY 03/01/24 levothyroxine 112 mcg tablet 112 mcg PO DAILY 03/01/24 losartan 25 mg tablet 25 mg PO DAILY 03/01/24 omeprazole 20 mg capsule,delayed 20 mg PO BID 03/01/24 release Previous Rx's ?Medication ?Instructions ?Recorded magnesium oxide 400 mg (241.3 mg 400 mg PO BIDPC #0 tabs 10/15/22 magnesium) tablet mupirocin 2 % topical ointment 1 appl topical BID #15 grams 03/01/24 clindamycin HCl 300 mg capsule 300 mg PO BID #6 caps 12/29/24 Allergies Allergy/AdvReac Type Severity Reaction Status Date / Time acetaminophen [Vicodin] Allergy Unknown vomiting; Verified 12/29/24 18:00 dizziness hydrocodone [Vicodin] Allergy Unknown vomiting; Verified 12/29/24 18:00 dizziness morphine Allergy Unknown Confusion Verified 12/29/24 18:00 oxycodone [Percocet] Allergy Unknown Vomiting, Verified 12/29/24 18:00 fainting penicillin V Allergy Unknown Rash Verified 12/29/24 18:00 tetracycline Allergy Unknown Stomach Verified 12/29/24 18:00 upset tramadol [Ultram] Allergy Unknown Violent N Verified 12/29/24 18:00 & V codeine AdvReac Intermediate fainting Verified 12/29/24 18:00 Review of Systems Constitutional: Constitutional: Denies body ache(s), Denies chills and Denies fever(s) Eyes: Eyes: Denies blurry vision and Denies floaters ENT: Denies vertigo Cardiovascular: Cardiovascular: Denies chest pain and Denies dyspnea Respiratory: Respiratory: Denies cough and Denies dyspnea Musculoskeletal: Musculoskeletal: Reports arthralgias, Denies joint swelling and Denies limited range of motion Integumentary/Breasts: Skin/Breast: Reports wounds Neurologic: Denies vertigo [facility] Past Medical History Medical History (Updated 12/29/24 @ 22:24 by Carroll Barragan) Open wound ILD (interstitial lung disease) HTN (hypertension) Social History Social History Household Members: Spouse Housing: House Do you presently have visiting nurse or other home services: Yes (VNA, PT, OT, [employer]) Alcohol intake: current Alcohol intake frequency: a few times a week Alcohol type: wine Patient Tobacco Use Status: Former Tobacco user Smoked in Last 30 Days: No Use of substances other than those prescribed or required for medical reasons: No Advance Directives: Yes Advance Directives on File: Yes Advance Directives Date on File: 10/07/22 Do you have a plan to hurt others: No Plan service: No Physical Exam ED Vital Signs: Vital Signs - 24 hr 12/29/24 17:58 12/29/24 20:53 12/29/24 23:19 Temperature 97.8 F 97.9 F Pulse Rate 71 69 Respiratory Rate 18 18 16 Blood Pressure 174/73 H 155/69 H Pulse Oximetry 98 96 Oxygen Delivery Method Nasal Cannula Nasal Cannula Oxygen Flow Rate 2 12/29/24 23:20 Temperature 97.9 F Pulse Rate 69 Respiratory Rate 16 Blood Pressure 155/69 H Pulse Oximetry 96 Oxygen Delivery Method Nasal Cannula Oxygen Flow Rate 2 BMI result Body Mass Index 40.6 Const General: healthy appearing, comfortable, no acute distress, alert and awake Nutritional Appearance: well nourished Orientation/consciousness: patient oriented x3 HENMT Other: Very small, partial-thickness laceration, got 2 mm to the right lateral eyebrow. No active bleeding Eyes Eyelids: Yes eyelids normal Conjunctivae: conjunctivae normal Sclerae: sclerae normal Corneas: corneas normal Pupils: Equal, round and reactive pupils present EOM: EOMs intact bilaterally Neck Neck: Yes full ROM Resp Effort & Inspection: normal respiratory effort, able to speak in complete sentences and not labored GI Inspection: No distended Palpation (GI): Soft to palpation, not firm, nontender, no guarding and not rigid Back/Spine/Pelvis Other: No C-spine tenderness Cervical Spine: collar present Skin General skin exam: elasticity normal Neuro General: patient oriented x3 Cranial nerves: Yes Equal, round and reactive pupils present and Yes Bilaterally intact EOM present Cognition (Neuro): normal cognition Extrem Other: Ther is a large, 9 cm partial-thickness laceration to the left anterior knee. There is no visible underlying osseous structure or prosthesis. Not appear to be down to the level of the joint. She retains Full range of motion with flexion-extension of the left knee. Large left upper arm skin tear. Medications Administered Discontinued Medications Generic Name Dose Route Start Last Admin Trade Name Freq PRN Reason Stop Dose Admin Clindamycin HCl 300 mg 12/29/24 22:47 12/29/24 23:19 Clindamycin Hcl 300 Mg Capsule PO 12/29/24 22:48 Not Given ONCE ONE Lidocaine/Epinephrine 10 ml 12/29/24 21:15 12/29/24 21:07 Lidocaine Hcl 1%/Epi 1:100,000 10 Ml Vial INFILTRATI 12/29/24 21:16 10 ml ONCE ONE Administration Medical Decision Making Medical Decision Making [facility] Narrative: 79-year-old female presents for evaluation of a left knee laceration. This does not appear to be down to the level of the joint. There was no visible prosthesis, x-ray does not show any fracture or dislocation. This wound was thoroughly irrigated and inspected. See procedure note for wound repair. Given that it is near a prosthesis she will be placed on oral clindamycin for prophylaxis. She was given orthopedic follow-up return precautions were given to evaluate for septic joint. Procedure was performed by Israel Acosta under my direct supervision Differential Diagnosis Differential Diagnoses: The differential diagnosis associated with the presentation includes Intracranial hemorrhage Cervical fracture Facial fracture Contusion Skin tear Abrasion Laceration Periprosthetic fracture Lab Data [facility] Lab Attestation statement: I reviewed the patient's lab results. Mild leukocytosis of unclear etiology, no significant anemia. Normal platelet count. No significant electrolyte abnormalities warranting intervention 12/29/24 19:20 12/29/24 19:19 Labs: Lab Results 12/29/24 12/29/24 Range/Units 19:19 19:20 WBC 12.0 H (4.8-10.8) X10*3/uL RBC 3.78 L D (4.20-5.50) X10*6/uL Hgb 12.2 D (12.0-16.0) g/dl Hct 37.2 D (37.0-47.0) % MCV 98.4 H (80.0-98.0) fL MCH 32.3 (27.0-33.0) pg MCHC 32.8 (31.0-35.0) g/dl RDW 13.3 (11.0-16.0) % Plt Count 283 D (160-400) X10*3/uL MPV 10.4 (9.4-12.3) fL Immature Gran % (Auto) 0.5 H (0.0-0.4) % Neut % (Auto) 80.8 H (45-73) % Lymph % (Auto) 11.0 L (20-40) % Terry % (Auto) 6.5 (2-11) % Eos % (Auto) 0.8 (0-4) % Baso % (Auto) 0.4 (0-2) % Lymph # (Auto) 1.3 (1.2-4.9) X10*3/uL Terry # (Auto) 0.8 (0.1-1.2) X10*3/uL Eos # (Auto) 0.1 (0.0-0.4) X10*3/uL Baso # (Auto) 0.1 (0.0-0.2) X10*3/uL Abs Immat Gran (auto) 0.06 H (0.00-0.03) X10*3/uL Absolute Neuts (auto) 9.7 H (2.0-8.3) x10*3/uL Absolute Nucleated RBC 0.000 (0.0-0.012) X10*3/uL Nucleated RBC % (auto) 0.0 (0.0-0.2) /100WBC Sodium 143 (135-145) mmol/L Potassium 3.8 (3.3-5.1) mmol/L Chloride 103 (96-108) mmol/L Carbon Dioxide 31 H (22-29) mmol/L Anion Gap 13 (12-20) BUN 16 (9-16) mg/dL Creatinine 0.88 (0.5-1.4) mg/dL Estim Creat Clear Calc 54.9 Estimated GFR > 60 Random Glucose 110 (60-115) mg/dL Calcium 10.3 H (8.4-10.2) mg/dL Total Bilirubin 0.4 (0.0-1.0) mg/dL AST 24 (5-31) U/L ALT 21 (0-31) U/L Alkaline Phosphatase 64 (39-117) U/L Troponin I High Sens 9.2 (<3.5-17.0) ng/L Total Protein 6.7 (6.5-8.0) g/dL Albumin 3.9 (3.5-5.0) g/dL Independent Interpretation I performed an independent interpretation of an: Plain X-Ray Radiology Impression Discussion of test interpretation with radiology: I have reviewed the radiologist's reading. Radiologist Impression: Findings: Left total knee arthroplasty changes. No acute fracture. Normal alignment. No knee joint effusion. No foreign body. IMPRESSION: 1. No acute findings. This document has been electronically signed by: Sunil Matamoros MD on 12/29/2024 20:36:15 Findings: There is degenerative anterolisthesis of C3 on C4, C4 on C5, and C7 on T1 due to facet osteoarthritis. There is no fracture. There is multilevel facet and uncovertebral joint osteoarthritis with associated neuroforaminal stenoses. IMPRESSION: No evidence of cervical spine injury. This document has been electronically signed by: Allan Kincaid MD on 12/29/2024 22:12:11 Findings: Portions of the lower face are obscured by artifact from dental restorations. There is no evidence of a fracture. There is no hematoma. Globes appear intact. There is minimal mucous in the left maxillary sinus. Paranasal sinuses are otherwise clear. Mastoids are clear. Temporomandibular joints are normally aligned. There is cerumen in the external auditory canals. IMPRESSION: No acute findings. This document has been electronically signed by: Allan Kincaid MD on 12/29/2024 22:15:56 Findings: There is no acute intracranial hemorrhage. Ventricles are within normal limits in size. No mass effect or midline shift is present. The ro-white matter differentiation appears normal. There is mild generalized cerebral atrophy. There are prominent perivascular spaces in the left lower basal ganglia. No fractures are identified. IMPRESSION: No acute intracranial abnormality. This document has been electronically signed by: Allan Kincaid MD on 12/29/2024 22:16:31 Discharge Plan Discharge Clinical Impression: Laceration of knee, left Patient Disposition: Home, Self-Care Instructions: Laceration (ED) Additional Instructions: You had 17 sutures placed. Keep the area clean and dry Take the antibiotics as prescribed for the next 3 days to prevent infection. I do recommend taking probiotics while on the clindamycin as this may cause diarrhea I recommend applying topical antibiotic once daily It is important that you follow up with Orthopedics as this laceration was near a prosthetic joint Prescriptions: New clindamycin HCl 300 mg capsule 300 mg PO BID Qty: 6 0RF No Action atorvastatin 40 mg tablet 40 mg PO BEDTIME carvedilol 12.5 mg tablet 12.5 mg PO BID citalopram 10 mg tablet 10 mg PO DAILY gabapentin 300 mg capsule 300 mg PO TID zaleplon 5 mg capsule 5 mg PO BEDTIME PRN (Reason: insomnia) budesonide 3 mg capsule,delayed,extend.release 3 mg PO DAILY multivitamin Tablet 1 tab PO DAILY albuterol sulfate 90 mcg/actuation HFA aerosol inhaler 2 puff inhalation Q6H PRN (Reason: Wheezing) fluticasone propionate 50 mcg/actuation [place],Suspension 1 spray INTRANASAL DAILY Rx Instructions: administer into each nostril dicyclomine 10 mg Capsule 10 mg PO BID PRN (Reason: Spasms) cholecalciferol (vitamin D3) 25 mcg (1,000 unit) Tablet 25 mcg PO DAILY magnesium oxide 400 mg (241.3 mg magnesium) Tablet 400 mg PO BIDPC Qty: 0 0RF acetaminophen [Tylenol] 325 mg tablet 650 mg PO BID furosemide 20 mg tablet 20 mg PO Q OTHER DAY losartan 25 mg tablet 25 mg PO DAILY omeprazole 20 mg capsule,delayed release(DR/EC) 20 mg PO BID levothyroxine 112 mcg tablet 112 mcg PO DAILY mupirocin 2 % ointment 1 appl topical BID Qty: 15 0RF Referrals: [facility] [place]Provider Group] (large left knee laceration over prosthetic) Interventions: ED Discharge Assessment Last Done: 12/29/24 23:20 Discharge Date/Time: 12/29/24 23:21 Print Language: Bel[place]ian
[2024-12-29 23:19] VITALS: BP 155/69; PULSE 69; RESP 16; TEMP 36.6; O2SAT 96
[2024-12-29 23:20] VITALS: BP 155/69; PULSE 69; RESP 16; TEMP 36.6; O2SAT 96
== END 2024-12-29 23:21 | disposition home or self-care (01) ==
PROVIDERS: Physician Assistant; Emergency Provider Emergency Medicine; PCP Nurse Practitioner Family
DX: S81.012A Laceration without foreign body, left knee, initial encounter (principal); S00.211A Abrasion of right eyelid and periocular area, initial encounter; W01.190A Fall on same level from slipping, tripping and stumbling with subsequent striking against furniture, initial encounter; J44.9 Chronic obstructive pulmonary disease, unspecified; Z99.81 Dependence on supplemental oxygen; Z96.652 Presence of left artificial knee joint; Y93.89 Activity, other specified; Y92.013 Bedroom of single-family (private) house as the place of occurrence of the external cause; Y99.9 Unspecified external cause status
CPT/HCPCS: 12034; 36415; 70450; 70486; 72125; 73564; 80053; 84484; 85025; 93005; 99284; 99285; J2004

== ENCOUNTER → 2024-12-29 19:02 | Outpatient (BNV) | payer MEDICARE, SELFPAY | PROVIDERS: Emergency Provider Emergency Medicine; PCP Nurse Practitioner Family; Visit Provider Internal Medicine Cardiovascular Disease | DX: R53.1 Weakness (principal) | CPT/HCPCS: 93010 ==

== ENCOUNTER → 2024-12-29 19:03 | Outpatient (BNV) | payer MEDICARE, SELFPAY | PROVIDERS: PCP Nurse Practitioner Family; Visit Provider Radiology Diagnostic Radiology | DX: M25.562 Pain in left knee (principal); S00.211A Abrasion of right eyelid and periocular area, initial encounter; M54.9 Dorsalgia, unspecified; W19.XXXA Unspecified fall, initial encounter | CPT/HCPCS: 70450; 70486; 72125; 73564 ==